=== PATIENT | female | born 1950 | race Caucasian/White ===

== ENCOUNTER 2023-07-20 12:17 | Inpatient (IN) ==
--- NOTE | 2023-07-20 12:49 | Emergency Department Note ---
History of Present Illness General Chief complaint: Illness Stated complaint: HEADACHE, COUGH, CHEST PAIN, FEVER Time Seen by Provider: 07/20/23 12:27 History of Present Illness Maximum Pain Intensity: 8 72-year-old female presents emergency department with a 2-week history of upper respiratory tract infection symptoms including clear nasal discharge runny nose headache and vomiting and urinary tract symptoms of increased urgency frequency and reportedly had a urine tested at the doctor's office yesterday which was positive. Patient is reportedly waiting for the culture prior to antibiotics. Patient states that she had an increased cough today and runny nose which was concerning. There are no other mitigating or alleviating factors. Patient denies fever. Patient denies neck pain. Patient denies rash. Patient denies sick contacts. Patient did take a home COVID test which was negative Home Medications Medication Instructions Recorded Confirmed Type aspirin 81 mg chewable tablet 81 mg PO DAILY 07/20/23 07/20/23 History (Aspirin Childrens) atorvastatin 40 mg tablet 40 mg PO DAILY 07/20/23 07/20/23 History calcium carbonate 600 mg-vitamin 1 cap PO DAILY 07/20/23 07/20/23 History D3 5 mcg (200 unit) capsule (Calcium 600 + D(3)) estradiol 0.01% (0.1 mg/gram) 1 applic vaginal Q OTHER DAY 07/20/23 07/20/23 History vaginal cream furosemide 20 mg tablet 20 mg PO DAILY PRN Fluid Retention 07/20/23 07/20/23 History lorazepam 1 mg tablet 1 mg PO TID PRN Anxiety 07/20/23 07/20/23 History magnesium oxide 400 mg PO DAILY 07/20/23 07/20/23 History meloxicam 15 mg tablet 15 mg PO HS PRN Mouth Pain 07/20/23 07/20/23 History metoprolol succinate 25 mg 12.5 mg PO QAM 07/20/23 07/20/23 History tablet,extended release 24 hr multivitamin 1 tab PO DAILY 07/20/23 07/20/23 History omega 6-hvs-uyp-fish oil 1,000 mg 2 cap PO DAILY 07/20/23 07/20/23 History (120 mg-180 mg) capsule (Fish Oil) omeprazole 20 mg capsule,delayed 20 mg PO DAILYBB 07/20/23 07/20/23 History release sertraline 50 mg tablet 50 mg PO DAILY 07/20/23 07/20/23 History vibegron 75 mg tablet (Gemtesa) 75 mg PO DAILY 07/20/23 07/20/23 History Allergies Allergy/AdvReac Type Severity Reaction Status Date / Time No Known Allergies Allergy Unverified 07/20/23 15:27 Past Med/Surg History Social History Smoking Status: Former smoker Feels Safe at Home: Yes Immunizations: Past medical history includes hypertension, high cholesterol Review of Systems A total of 10 systems reviewed and were otherwise negative Constitutional: + body aches Respiratory: + cough Physical Exam Vital Signs Vital Signs - 24 hr 07/20/23 12:20 07/20/23 12:44 07/20/23 12:53 Temperature 36.2 C L Temperature Source Temporal Artery Scan Pulse Rate 80 79 Pulse Rate [Apical] 81 Respiratory Rate 18 21 Respiratory Effort / Characteristics Non-Labored Spontaneous Respiratory Depth Normal Respiratory Pattern Regular Blood Pressure 153/81 H Blood Pressure [Left Arm] 156/102 H Blood Pressure Mean 105 Blood Pressure Mean [Left Arm] 120 Blood Pressure Position Sitting Pulse Oximetry 97 97 Oxygen Delivery Method Room Air Room Air Sepsis Recent Fever Within 48 Hours No Sepsis New/Unexplained Change in Mental Status No Sepsis Action Taken by Nursing No Action Required 07/20/23 12:54 Temperature Temperature Source Pulse Rate Pulse Rate [Apical] Respiratory Rate Respiratory Effort / Characteristics Respiratory Depth Respiratory Pattern Blood Pressure Blood Pressure [Left Arm] Blood Pressure Mean Blood Pressure Mean [Left Arm] Blood Pressure Position Pulse Oximetry 96 Oxygen Delivery Method Room Air Sepsis Recent Fever Within 48 Hours Sepsis New/Unexplained Change in Mental Status Sepsis Action Taken by Nursing GENERAL: Patient is awake alert in no acute distress patient is resting comfortably and showing no signs of anxiety EYES: The conjunctivae are clear. The pupils are round and reactive. EARS, NOSE, MOUTH AND THROAT: The nose is without any evidence of any deformity. Mucous membranes are moist. Tongue is midline. NECK: The neck is nontender and supple. No meningismus RESPIRATORY: Normal respiratory effort is noted there is no evidence of wheezing rhonchi or rales CARDIOVASCULAR: Regular rate and rhythm noted there no murmurs rubs or gallops normal S1 normal S2. GASTROINTESTINAL: The abdomen is soft. Abdomen is nontender. BACK: No midline tenderness or or step-off noted range of motion in flexion extension as well as rotation no signs of muscle spasm noted MUSCULOSKELETAL/EXTREMITIES: There is no evidence of gross deformity full range of motion is noted in the hips and shoulders. SKIN: There is no obvious evidence of any rash. There are no petechiae, pallor or cyanosis noted. NEUROLOGIC: Patient is awake alert and oriented x3 strength is symmetric Course Reevaluation(s) Reevaluation #1: Patient was started on IV fluids. Patient was given IV Rocephin after her urine culture showed E. coli. Time: 15:00 Reevaluation #2: Patient reassessment -patient is in no distress. I discussed the evaluation with the patient the CAT scan results of lab work and the fact that we are giving her IV Rocephin. Time: 16:06 Consultations Consultation #1: I have spoken with the [facility] hospitalist Laura for admission Time: 16:06 Administered Medications Discontinued Medications Ceftriaxone Sodium (Rocephin) 2,000 mg in 50 mls @ 100 mls/hr IV NOW STA Stop: 07/20/23 15:25 Last Admin: 07/20/23 15:49 Dose: 100 mls/hr Documented By: MARIELENA Ioversol (Optiray 320 125ml) 117 ml IV ONCE ONE Stop: 07/20/23 13:54 Last Admin: 07/20/23 13:54 Dose: 117 ml Documented By: ISABEL Ondansetron HCl (Ondansetron Inj 2 Mg/Ml 2 Ml Vial) 4 mg IV NOW STA Stop: 07/20/23 12:57 Last Admin: 07/20/23 13:00 Dose: 4 mg Documented By: SRL Medical Decision Making Medical Records Attestation: I reviewed the patient's medical records. Home Medications Current Medication List: was personally reviewed by me Laboratory Data Attestation: I reviewed the patient's lab results. Labs interpreted by me -elevated liver enzymes 07/20/23 12:47 07/20/23 12:47 Lab Results 07/20/23 07/20/23 Range/Units 12:35 12:47 WBC 8.70 (4.8-10.8) K/ul RBC 4.54 (4.20-5.40) M/uL Hgb 14.2 (12.0-16.0) g/dl Hct 41.2 (37.0-47.0) % MCV 90.7 (80.0-100.0) fL MCH 31.3 (25.0-34.0) pg MCHC 34.5 (32.0-36.0) g/dL RDW Std Deviation 43.8 (36.4-46.3) fL RDW Coeff of Chio 13.2 (11.5-14.5) % Plt Count 163 (130-400) K/uL MPV 10.2 (9.4-12.4) fL Immature Gran % (Auto) 0.3 % Neut % (Auto) 79.8 % Lymph % (Auto) 11.4 % Butts % (Auto) 5.6 % Eos % (Auto) 2.4 % Baso % (Auto) 0.5 % Neut # (Auto) 6.94 H (1.40-6.50) K/uL Lymph # (Auto) 0.99 L (1.20-3.40) K/uL Butts # (Auto) 0.49 (0.11-0.59) K/uL Eos # (Auto) 0.21 (0.00-0.50) K/uL Baso # (Auto) 0.04 (0.00-0.20) K/uL Immature Gran # (Auto) 0.03 (0.01-0.20) K/uL Sodium 135 L (136-145) mmol/L Potassium 3.8 (3.5-5.1) mmol/L Chloride 100 (98-107) mmol/L Carbon Dioxide 25 (21-32) mmol/L Anion Gap 10 (3-11) BUN 14 (6-23) mg/dl Creatinine 0.80 (0.6-1.2) mg/dl Est Cr Clr Drug Dosing 54.2 ml/min Est GFR ( Amer) 84.2 ml/min Est GFR (Non-Af Amer) 72.6 ml/min BUN/Creatinine Ratio 17.5 (10-20) Glucose 99 (70-99(Fasting)) mg/dl Lactate 1.8 (0.4-2.0) mmol/L Calcium 8.7 (8.6-10.3) mg/dl Magnesium 1.8 (1.7-2.4) mg/dl Total Bilirubin 1.0 (0.2-1.0) mg/dl Direct Bilirubin 0.4 H (0-0.2) mg/dl AST 317 H (13-39) U/L ALT 267 H (7-52) U/L Alkaline Phosphatase 205 H (34-104) U/L Troponin I High Sens 8.5 (0-14) pg/ml Total Protein 6.9 (6.0-8.3) gm/dl Albumin 3.7 (3.4-5.0) gm/dl Procalcitonin 0.45 (0-0.5) ng/ml SARS-CoV-2 (PCR) NEGATIVE (Negative) Influenza Type A (PCR) Negative (Neg) Influenza Type B (PCR) Negative (Neg) RSV (RT-PCR) Negative (Neg) Imaging Data Attestation: I personally reviewed and interpreted this imaging study as follows: My Impression: Chest x-ray interpreted by me negative for infiltrate, review of the radiologist report was appreciated Radiologist's Impression: Chest X-Ray 07/20/23 12:27 XR chest 1V portable HISTORY: Cough. Vomiting. Sepsis COMPARISON: None. FINDINGS: Questionable abnormal density overlying the aortic knob. This could be due to the slightly rotated study. The heart is normal in size. No pneumothorax. No pleural effusions. Hazy appearance to left lateral lung base is could be due to overlapping soft tissue. Otherwise, no focal lung consolidations identified. No evidence for pulmonary edema. IMPRESSION: Questionable abnormal density overlying the aortic knob which could be due to the slightly rotated study. Dedicated contrast-enhanced chest CT is recommended for further evaluation. ACT 112: Negative or not required by law. Electronically signed by: Russell Beck M.D. 07/20/2023 1:05 PM Abdomen/Pelvis CT 07/20/23 13:35 CT abd pelvis IV con only CLINICAL HISTORY: elevated lfts TECHNIQUE: Helical axial images of the abdomen and pelvis were obtained and displayed. Automated dose lowering techniques and/or adjustment according to patient size were utilized for this exam. This exam was performed with intravenous contrast. COMPARISON: Comparison is made to CT abdomen pelvis 07/20/2023 FINDINGS: Lower chest: Peripheral interstitial thickening is seen. Liver: Unremarkable. No focal lesions are seen. Gallbladder and biliary tree: No calcified gallstones. Normal caliber wall. No intra- or extrahepatic biliary ductal dilation. Pancreas: Unremarkable, no focal lesions. Spleen: Unremarkable. Adrenals: Unremarkable. Kidneys and ureters: A stone in the right UVJ measures approximate 4 mm. No hydronephrosis is seen, there is minimal hydroureter. Bladder: Unremarkable. Reproductive organs: Unremarkable. Bowel: Diverticulosis is seen without evidence of diverticulitis. Lymph nodes Retroperitoneal: Unremarkable. Pelvic: Unremarkable. Mesenteric: Unremarkable. Peritoneum: Normal. Vessels: No evidence of aortic dissection. Abdominal wall: A fat-containing umbilical hernia is seen. Bones: Degenerative changes in the visualized spine. IMPRESSION: 1. There is a right UVJ stone without definite hydroureteronephrosis and minimal hydroureter. 2. Otherwise no acute abnormalities, in particular no evidence of dissection. 3. Diverticulosis without diverticulitis. ACT 112: Negative or not required by law. Electronically signed by: Marcial Schrader M.D. 07/20/2023 2:40 PM Chest CTA 07/20/23 13:45 CT ANGIOGRAPHY OF THE CHEST DISSECTION PROTOCOL CLINICAL HISTORY: abnormal cxr COMPARISON STUDY: Chest radiograph performed earlier today. TECHNIQUE: Before and following the IV administration of 117 mL of Optiray, helical axial images of the chest were obtained. Maximal intensity projections and sagittal and coronal reformats were viewed on an independent 3D workstation. IV contrast was administered without complication. Automated exposure control was utilized for the study. A dose lowering technique was utilized adhering to the principles of ALARA. CT DOSE: 2082.59 mGy.cm FINDINGS: Caliber of the thoracic aorta is normal. There is no thoracic aortic dissection. No intramural hematoma is present. There is no pericardial effusion. No pulmonary emboli are identified. A small hiatal hernia is present. There are a few mildly enlarged mediastinal and right hilar lymph nodes. Index AP window node on image 71 of 270 measures 1.7 x 1.2 cm. A right hilar node on image 92 measures 1.6 x 1.3 cm. No pneumothorax. Trace left pleural effusion is present. Mild interlobular septal thickening is noted. Subcutaneous pleural reticulation with tiny pulmonary nodules is noted. There is no confluent consolidation. Abdomen and pelvis CT will be reported separately. IMPRESSION: 1. No thoracic aortic dissection. 2. Mild interlobular septal thickening and patchy subpleural groundglass opacities within the lungs. Findings may reflect an infectious process although are nonspecific. No confluent consolidation. 3. Trace left pleural effusion. 4. Mild enlarged mediastinal and right hilar lymph nodes. These may be reactive. A follow-up chest CT in 6 months is recommended to ensure stability/resolution ACT 112: Negative or not required by law. Electronically signed by: Sachin Araya M.D. 07/20/2023 2:28 PM ECG Data Attestation: I personally reviewed and interpreted this ECG as follows: Additional Comments: EKG interpreted by me, normal sinus rhythm, rate of 82 normal intervals normal axis no obvious ST segment elevation or depression Telemetry was ordered by me, interpreted as sinus rhythm rate of 82 MDM Narrative Medical decision making differential diagnosis includes sepsis, pneumonia, upper respiratory tract infection, viral syndrome, influenza, urinary tract infection Plan is to check labs, sepsis labs, respiratory swab I have reviewed the culture result from July 19, 2023 in which the patient has greater than 100,000 and E. coli Patient was started on IV Rocephin Patient's CT angio to rule out any abnormality due to abnormal chest x-ray was essentially negative for dissection, CT abdomen pelvis showed a ureteral stone Patient was started on IV fluids and IV Rocephin, patient will be admitted for suspected infected kidney stone Impression & Plan Acute UTI (urinary tract infection), Ureterolithiasis Discharge Plan Visit Data Chief Complaint: Illness Stated Complaint: HEADACHE, COUGH, CHEST PAIN, FEVER ED Provider: Carlos Adamson Discharge Problem: Acute UTI (urinary tract infection), Ureterolithiasis Patient Disposition: Admitted As Inpatient Forms Stand Alone Forms: My [facility] Prescriptions Prescriptions: No Action meloxicam 15 mg tablet 15 mg PO HS PRN (Reason: Mouth Pain) metoprolol succinate 25 mg tablet extended release 24 hr 12.5 mg PO QAM atorvastatin 40 mg tablet 40 mg PO DAILY sertraline 50 mg tablet 50 mg PO DAILY Gemtesa 75 mg tablet 75 mg PO DAILY omeprazole 20 mg capsule,delayed release(DR/EC) 20 mg PO DAILYBB estradiol 0.01 % (0.1 mg/gram) cream 1 applic VAGINAL Q OTHER DAY Rx Instructions: apply pea sized amount (0.5gm) vaginally every other night multivitamin Tablet 1 tab PO DAILY aspirin [Aspirin Childrens] 81 mg Tablet,Chewable 81 mg PO DAILY furosemide 20 mg Tablet 20 mg PO DAILY PRN (Reason: Fluid Retention) lorazepam 1 mg tablet 1 mg PO TID PRN (Reason: Anxiety) omega 1-vgr-vaj-fish oil [Fish Oil] 1,000 mg (120 mg-180 mg) Capsule 2 cap PO DAILY magnesium oxide 400 mg magnesium Tablet 400 mg PO DAILY Calcium 600 + D(3) 600 mg-5 mcg (200 unit) Capsule 1 cap PO DAILY Referrals Referrals: Dusty Crocker MD [ED Physician] -
[2023-07-20] MEDS ORDERED: ONDANSETRON INJ 2 MG/ML 2 ML VIAL IV STA (12:56)
--- NOTE | 2023-07-20 13:06 | XRay Report ---
XR chest 1V portable HISTORY: Cough. Vomiting. Sepsis COMPARISON: None. FINDINGS: Questionable abnormal density overlying the aortic knob. This could be due to the slightly rotated study. The heart is normal in size. No pneumothorax. No pleural effusions. Hazy appearance to left lateral lung base is could be due to overlapping soft tissue. Otherwise, no focal lung consolid ations identified. No evidence for pulmonary edema. IMPRESSION: Questionable abnormal density overlying the aortic knob which could be due to the slightly rotated st udy. Dedicated contrast-enhanced chest CT is recommended for further evaluation. ACT 112: Negative or not required by law. Electronically signed by: Russell Beck M.D. 07/20/2023 1:05 PM
[2023-07-20 13:07] LABS: Basophils # (auto) 0.04 K/uL (0.00-0.20); Basophils % (auto) 0.5 %; Eosinophils # (auto) 0.21 K/uL (0.00-0.50); Eosinophils % (auto) 2.4 %; Hematocrit (blood only) 41.2 % (37.0-47.0); Hemoglobin 14.2 g/dl (12.0-16.0); Immature Granulocytes # (auto) 0.03 K/uL (0.01-0.20); Immature Granulocytes % (auto) 0.3 %; Lymphocytes # (auto) 0.99 K/uL (1.20-3.40); Lymphocytes % (auto) 11.4 %; Mean Corpuscular Hemoglobin 31.3 pg (25.0-34.0); Mean Corpuscular Hgb Conc 34.5 g/dL (32.0-36.0); Mean Corpuscular Volume 90.7 fL (80.0-100.0); Mean Platelet Volume 10.2 fL (9.4-12.4); Monocytes # (auto) 0.49 K/uL (0.11-0.59); Monocytes % (auto) 5.6 %; Neutrophils # (auto) 6.94 K/uL (1.40-6.50); Neutrophils % (auto) 79.8 %; Platelet Count 163 K/uL (130-400); RDW Coefficient of Variation 13.2 % (11.5-14.5); RDW Standard Deviation 43.8 fL (36.4-46.3); Red Blood Count 4.54 M/uL (4.20-5.40)
[2023-07-20 13:24] LABS: Albumin Level 3.7 gm/dl (3.4-5.0); BUN Creatinine Ratio 17.5 (10-20); Bilirubin Direct 0.4 mg/dl (0-0.2); Calcium 8.7 mg/dl (8.6-10.3); Creatinine Clr Calc Pharmacy 54.2 ml/min; Est GFR (African American) 84.2 ml/min; Est GFR (Non-African American) 72.6 ml/min; Magnesium 1.8 mg/dl (1.7-2.4); Potassium 3.8 mmol/L (3.5-5.1); Total Protein 6.9 gm/dl (6.0-8.3)
[2023-07-20 13:30] LABS: Troponin I High Sensitivity 8.5 pg/ml (0-14)
[2023-07-20 13:46] LABS: Influenza A virus by PCR Negative (Neg); Influenza B virus by PCR Negative (Neg); RSV by PCR Negative (Neg); SARS CoV2 RNA(COVID-19) Ceph NEGATIVE (Negative)
[2023-07-20] MEDS ORDERED: OPTIRAY 320 125ml IV ONE (13:53)
--- NOTE | 2023-07-20 14:29 | CT Scan Report ---
CT ANGIOGRAPHY OF THE CHEST DISSECTION PROTOCOL CLINICAL HISTORY: abnormal cxr COMPARISON STUDY: Chest radiograph performed earlier today. TECHNIQUE: Before and following the IV administration of 117 mL of Optiray, helical axial images of t he chest were obtained. Maximal intensity projections and sagittal and coronal reformats were viewed on an independent 3D workstation. IV contrast was administered without complication. Automated exp osure control was utilized for the study. A dose lowering technique was utilized adhering to the [facility] DANNY. CT DOSE: 2082.59 mGy.cm FINDINGS: Caliber of the thoracic aorta is normal. There is no thoracic aortic dissection. No intram ural hematoma is present. There is no pericardial effusion. No pulmonary emboli are identified. A sma ll hiatal hernia is present. There are a few mildly enlarged mediastinal and right hilar lymph nodes. Index AP window node on image 71 of 270 measures 1.7 x 1.2 cm. A right hilar node on image 92 measur es 1.6 x 1.3 cm. No pneumothorax. Trace left pleural effusion is present. Mild interlobular septal th ickening is noted. Subcutaneous pleural reticulation with tiny pulmonary nodules is noted. There is n o confluent consolidation. Abdomen and pelvis CT will be reported separately. IMPRESSION: 1. No thoracic aortic dissection. 2. Mild interlobular septal thickening and patchy subpleural groundglass opacities within the lungs. Findings may reflect an infectious process although are nonspecific. No confluent consolidation. 3. Trace left pleural effusion. 4. Mild enlarged mediastinal and right hilar lymph nodes. These may be reactive. A follow-up chest CT in 6 months is recommended to ensure stability/resolution ACT 112: Negative or not required by law. Electronically signed by: Sachin Araya M.D. 07/20/2023 2:28 PM
--- NOTE | 2023-07-20 14:42 | CT Scan Report ---
CT abd pelvis IV con only CLINICAL HISTORY: elevated lfts TECHNIQUE: Helical axial images of the abdomen and pelvis were obtained and displayed. Automated dose lowering techniques and/or adjustment according to patient size were utilized for this exam. This e xam was performed with intravenous contrast. COMPARISON: Comparison is made to CT abdomen pelvis 07/20/2023 FINDINGS: Lower chest: Peripheral interstitial thickening is seen. Liver: Unremarkable. No focal lesions are seen. Gallbladder and biliary tree: No calcified gallstones. Normal caliber wall. No intra- or extrahepatic biliary ductal dilation. Pancreas: Unremarkable, no focal lesions. Spleen: Unremarkable. Adrenals: Unremarkable. Kidneys and ureters: A stone in the right UVJ measures approximate 4 mm. No hydronephrosis is seen, t here is minimal hydroureter. Bladder: Unremarkable. Reproductive organs: Unremarkable. Bowel: Diverticulosis is seen without evidence of diverticulitis. Lymph nodes Retroperitoneal: Unremarkable. Pelvic: Unremarkable. Mesenteric: Unremarkable. Peritoneum: Normal. Vessels: No evidence of aortic dissection. Abdominal wall: A fat-containing umbilical hernia is seen. Bones: Degenerative changes in the visualized spine. IMPRESSION: 1. There is a right UVJ stone without definite hydroureteronephrosis and minimal hydroureter. 2. Otherwise no acute abnormalities, in particular no evidence of dissection. 3. Diverticulosis without diverticulitis. ACT 112: Negative or not required by law. Electronically signed by: Marcial Schrader M.D. 07/20/2023 2:40 PM
[2023-07-20] MEDS ORDERED: cefTRIAXone SODIUM 2,000 MG/50 ML BAG IV STA (14:56)
--- NOTE | 2023-07-20 16:36 | History & Physical Report ---
Date of Service July 20, 2023 Assessment & Plan (1) Elevated transaminase level: (2) Ureterolithiasis: (3) Urge incontinence: (4) Acute UTI (urinary tract infection): (5) GERD (gastroesophageal reflux disease): (6) HLD (hyperlipidemia): (7) Ischemic heart disease: Plan: 72 yo F with PMhx of chronic disease, HLD, anxiety, GERD, urge incontinence who presents to the hospital with upper respiratory complaints for the past 2 weeks, vomited 1 time 1 week ago, yesterday and again today. Outpatient urinalysis conducted and culture grew out 100,000 colonies of E. coli on preliminary result reported on 07/19/2023 she was not started on outpatient antibiotic, upon hearing this patient presented to the ER. UTI, e. Eoli Urge Incontinence Ureterolithiasis -Continue ceftriaxone IV, antibiotics initiated today 07/20, can transition to p.o. antibiotic on discharge pending culture sensitivity results in epic -CT abdomen pelvis conducted showing 4 mm UVJ stone, left, no hydronephrosis, nonobstructing. -Strain all urine, no abdominal pain, patient is tolerating p.o. intake, will hold off on IV fluids at this time Upper Respiratory Illness - CT chest showing hilar lymphadenopathy, - COVID, RSV and flu swab negative, can hold off on biofire at this time and treat supportively with nasal spray, tessalon pearls, xopenex nebs prn Elevated Transaminases - Noted upon outpatient epic review her LFTs were normal as of 02/22/2023 -Suspect that this is possibly viral causing such -Check hepatitis panel -Trend LFTs with a.m. labs -Holding statin therapy, patient denies any Tylenol use, she does admit to drinking 2 glasses of wine daily and has done this for many years -CT abd/pelvis is negative for acute findings which would cause concern with elevation of LFTs, benign abdomen on exam, no changes in bowels, + vomiting but minimal. -Can consider autoimmune panel if LFTs uptrending/not improving HLD - Holding statin therapy for now Ischemic heart disease - Reviewed pts last echo personally from April 2022 showing LVEF of 55 to 59%, no wall motion abnormalities, grade 1 diastolic dysfunction - appears euvolemic on exam today - Continue baby aspirin daily - Chronic, stable DVT PPx: teds, scds Lines: 2 PIV FEN/GI heart healthy diet CODE: DNR/DNI Dispo: From home, likely to remain in the hospital x 1-2 days History of Present Illness Chief Complaint: UTI, upper respiratory symptoms Primary Care Provider: Jomar Thompson MD This is a 72 yo F with PMhx of chronic disease, HLD, anxiety, GERD, urge incontinence who presents to the hospital with upper respiratory complaints for the past 2 weeks, vomited 1 time 1 week ago, yesterday and again today. Patient had outpatient urinalysis conducted and culture grew out 100,000 colonies of E. coli on preliminary result reported on 07/19/2023 she was not started on outpatient antibiotic, upon hearing this patient presented to the ER. She denies any chronic abdominal pain or any recent changes in her medications. She admits to drinking 2 glasses of wine daily and has for many years. Pt uses meloxicam only intermittently, denies tylenol use. Patient also admits to having a cough/runny nose for the past 2 weeks, feels a bit fatigued, dyspneic after climbing a flight of stairs, but reports that she is not short of breath with normal ADLs. She admits to having some sweats, chills and felt like she was shaking 2 nights ago but denies any specific fever, did not take her temperature, did not take any antipyretic medications. She denies any recent sick contacts, lives at home with her . Daughter is present with her at bedside and supports the history. Allergies Allergy/AdvReac Type Severity Reaction Status Date / Time No Known Allergies Allergy Unverified 07/20/23 15:27 Home Medications Medication Instructions Recorded Confirmed Type aspirin 81 mg chewable tablet 81 mg PO DAILY 07/20/23 07/20/23 History (Aspirin Childrens) atorvastatin 40 mg tablet 40 mg PO DAILY 07/20/23 07/20/23 History calcium carbonate 600 mg-vitamin 1 cap PO DAILY 07/20/23 07/20/23 History D3 5 mcg (200 unit) capsule (Calcium 600 + D(3)) estradiol 0.01% (0.1 mg/gram) 1 applic vaginal Q OTHER DAY 07/20/23 07/20/23 History vaginal cream furosemide 20 mg tablet 20 mg PO DAILY PRN Fluid Retention 07/20/23 07/20/23 History lorazepam 1 mg tablet 1 mg PO TID PRN Anxiety 07/20/23 07/20/23 History magnesium oxide 400 mg PO DAILY 07/20/23 07/20/23 History meloxicam 15 mg tablet 15 mg PO HS PRN Mouth Pain 07/20/23 07/20/23 History metoprolol succinate 25 mg 12.5 mg PO QAM 07/20/23 07/20/23 History tablet,extended release 24 hr multivitamin 1 tab PO DAILY 07/20/23 07/20/23 History omega 1-irs-jkg-fish oil 1,000 mg 2 cap PO DAILY 07/20/23 07/20/23 History (120 mg-180 mg) capsule (Fish Oil) omeprazole 20 mg capsule,delayed 20 mg PO DAILYBB 07/20/23 07/20/23 History release sertraline 50 mg tablet 50 mg PO DAILY 07/20/23 07/20/23 History vibegron 75 mg tablet (Gemtesa) 75 mg PO DAILY 07/20/23 07/20/23 History Past Med/Surg History Medical History (Updated 07/20/23 @ 16:32 by Stephanie Lynch PA-C) Hx of cataract Urge incontinence GERD (gastroesophageal reflux disease) HLD (hyperlipidemia) Ischemic heart disease Surgical History (Updated 07/20/23 @ 16:32 by Stephanie Lynch PA-C) History of removal of ovarian cyst Hx of colonoscopy Hx of rotator cuff surgery Family History (Updated 07/20/23 @ 16:33 by Stephanie Lynch PA-C) Mother Stroke Diabetes Father Diabetes Heart disease Social History (Updated 07/20/23 @ 16:33 by Stephanie Lynch PA-C) Smoking Status: Former smoker Tobacco Type: Cigarettes Smoking End Date: 40 years ago; Feels Safe at Home: Yes Review of Systems Review of Systems: Constitutional: As per HPI with possible fever, sweats and chills Eyes: No diplopia, no worsening or blurred vision ENT: normal hearing, no trouble swallowing Respiratory: + rhinorrhea, occasional cough, no sputum, no dyspnea at rest, + PARSONS Cardiovascular: No chest pain, tightness or palpitations Abdomen: As per HPI, No pain, + vomiting x 2 days, no diarrhea or constipation Musculoskeletal: No joint pain, calf pain, swelling Neurologic: No weakness, numbness/tingling, or balance problems Psychiatric: No anxiety or depression Skin: No rash or itch Physical Exam Physical Exam: General: awake, alert, no apparent distress, elderly white female Head: Normocephalic, atraumatic ENT: PERRL, EOMI, no pharyngeal exudate, mucous membranes moist Chest: Clear to auscultation, on room air, no adventitious breath sounds Cardiac: Regular rate and rhythm, no murmur, no JVD, normal peripheral pulses, good capillary refill Abdominal: NABS x 4 quadrants, soft, nondistended, nontender to palpation, no rebound or guarding Extremities: Normal inspection, no peripheral edema or erythema, calfs nontender to palpation Psych: Normal mood and affect Neuro: AAO x 3, strength intact bilaterally and rated 5/5, no motor deficits, speech is clear, no peripheral sensory deficits Results & Data Results & Data Vital Signs (Past 12 Hours) Vital Signs Temp Pulse Pulse Resp BP BP Pulse Ox 07/20/23 12:54 96 07/20/23 12:53 81 21 156/102 H 97 07/20/23 12:44 79 07/20/23 12:20 36.2 C L 80 18 153/81 H 97 O2 Del Method 07/20/23 12:54 Room Air 07/20/23 12:53 Room Air 07/20/23 12:44 07/20/23 12:20 Room Air Laboratory Results 07/20/23 14:22 Aerobic Blood Culture - Pending Blood Anaerobic Blood Culture - Pending 07/20/23 12:47 Aerobic Blood Culture - Pending Blood Anaerobic Blood Culture - Pending 07/20/23 07/20/23 12:47 12:35 WBC 8.70 RBC 4.54 Hgb 14.2 Hct 41.2 MCV 90.7 MCH 31.3 MCHC 34.5 RDW Std Deviation 43.8 RDW Coeff of [place] 13.2 Plt Count 163 MPV 10.2 Immature Gran % (Auto) 0.3 Neut % (Auto) 79.8 Lymph % (Auto) 11.4 [place] % (Auto) 5.6 Eos % (Auto) 2.4 Baso % (Auto) 0.5 Neut # (Auto) 6.94 H Lymph # (Auto) 0.99 L [place] # (Auto) 0.49 Eos # (Auto) 0.21 Baso # (Auto) 0.04 Immature Gran # (Auto) 0.03 Sodium 135 L Potassium 3.8 Chloride 100 Carbon Dioxide 25 Anion Gap 10 BUN 14 Creatinine 0.80 Est Cr Clr Drug Dosing 54.2 Est GFR ( Amer) 84.2 Est GFR (Non-Af Amer) 72.6 BUN/Creatinine Ratio 17.5 Glucose 99 Lactate 1.8 Calcium 8.7 Magnesium 1.8 Total Bilirubin 1.0 Direct Bilirubin 0.4 H AST 317 H ALT 267 H Alkaline Phosphatase 205 H Troponin I High Sens 8.5 Total Protein 6.9 Albumin 3.7 Procalcitonin 0.45 SARS-CoV-2 (PCR) NEGATIVE Influenza Type A (PCR) Negative Influenza Type B (PCR) Negative RSV (RT-PCR) Negative Diagnostic Findings Chest X-Ray 07/20/23 12:27 XR chest 1V portable HISTORY: Cough. Vomiting. Sepsis COMPARISON: None. FINDINGS: Questionable abnormal density overlying the aortic knob. This could be due to the slightly rotated study. The heart is normal in size. No pneumothorax. No pleural effusions. Hazy appearance to left lateral lung base is could be due to overlapping soft tissue. Otherwise, no focal lung consolidations identified. No evidence for pulmonary edema. IMPRESSION: Questionable abnormal density overlying the aortic knob which could be due to the slightly rotated study. Dedicated contrast-enhanced chest CT is recommended for further evaluation. ACT 112: Negative or not required by law. Electronically signed by: Russell Beck M.D. 07/20/2023 1:05 PM Abdomen/Pelvis CT 07/20/23 13:35 CT abd pelvis IV con only CLINICAL HISTORY: elevated lfts TECHNIQUE: Helical axial images of the abdomen and pelvis were obtained and displayed. Automated dose lowering techniques and/or adjustment according to patient size were utilized for this exam. This exam was performed with intravenous contrast. COMPARISON: Comparison is made to CT abdomen pelvis 07/20/2023 FINDINGS: Lower chest: Peripheral interstitial thickening is seen. Liver: Unremarkable. No focal lesions are seen. Gallbladder and biliary tree: No calcified gallstones. Normal caliber wall. No intra- or extrahepatic biliary ductal dilation. Pancreas: Unremarkable, no focal lesions. Spleen: Unremarkable. Adrenals: Unremarkable. Kidneys and ureters: A stone in the right UVJ measures approximate 4 mm. No hydronephrosis is seen, there is minimal hydroureter. Bladder: Unremarkable. Reproductive organs: Unremarkable. Bowel: Diverticulosis is seen without evidence of diverticulitis. Lymph nodes Retroperitoneal: Unremarkable. Pelvic: Unremarkable. Mesenteric: Unremarkable. Peritoneum: Normal. Vessels: No evidence of aortic dissection. Abdominal wall: A fat-containing umbilical hernia is seen. Bones: Degenerative changes in the visualized spine. IMPRESSION: 1. There is a right UVJ stone without definite hydroureteronephrosis and minimal hydroureter. 2. Otherwise no acute abnormalities, in particular no evidence of dissection. 3. Diverticulosis without diverticulitis. ACT 112: Negative or not required by law. Electronically signed by: Marcial Schrader M.D. 07/20/2023 2:40 PM Chest CTA 07/20/23 13:45 CT ANGIOGRAPHY OF THE CHEST DISSECTION PROTOCOL CLINICAL HISTORY: abnormal cxr COMPARISON STUDY: Chest radiograph performed earlier today. TECHNIQUE: Before and following the IV administration of 117 mL of Optiray, helical axial images of the chest were obtained. Maximal intensity projections and sagittal and coronal reformats were viewed on an independent 3D workstation. IV contrast was administered without complication. Automated exposure control was utilized for the study. A dose lowering technique was utilized adhering to the principles of ALARA. CT DOSE: 2082.59 mGy.cm FINDINGS: Caliber of the thoracic aorta is normal. There is no thoracic aortic dissection. No intramural hematoma is present. There is no pericardial effusion. No pulmonary emboli are identified. A small hiatal hernia is present. There are a few mildly enlarged mediastinal and right hilar lymph nodes. Index AP window node on image 71 of 270 measures 1.7 x 1.2 cm. A right hilar node on image 92 measures 1.6 x 1.3 cm. No pneumothorax. Trace left pleural effusion is present. Mild interlobular septal thickening is noted. Subcutaneous pleural reticulation with tiny pulmonary nodules is noted. There is no confluent consolidation. Abdomen and pelvis CT will be reported separately. IMPRESSION: 1. No thoracic aortic dissection. 2. Mild interlobular septal thickening and patchy subpleural groundglass opacities within the lungs. Findings may reflect an infectious process although are nonspecific. No confluent consolidation. 3. Trace left pleural effusion. 4. Mild enlarged mediastinal and right hilar lymph nodes. These may be reactive. A follow-up chest CT in 6 months is recommended to ensure stability/resolution ACT 112: Negative or not required by law. Electronically signed by: Sachin Araya M.D. 07/20/2023 2:28 PM ECG Additional Comments: EKG personally reviewed showing NSR, no signs of ST wave inversion, or signs of ischemia Code Status & VTE Plan Code Status DNR/DNI-discussed with the patient and her daughter who was present at bedside VTE Prophylaxis Plan VTE Prophylaxis will be ordered: Yes Supervising Physician Co-Signing Physician Notes I have seen and discussed the case with the collaborating JOHANNE. I agree with the above H&P. I have reviewed and confirmed the patients medical history, the findings on physical examination, and the patients diagnosis and treatment plan with Cris WHITING and agree with the information documented. In short, Ms. Solis is a 72 year old woman with past medical history of urinary incontinence, ischemic coronary heart disease, PACs/PVCs, HLD, history of mildly elevated ALT who is admitted due to elevated LFTS and urinary tract infection. Patient endorses 2 episodes of vomiting, nonbillious. Denies any recent history of med changes or OTC use (tylenol). Physical exam negative for any abdominal tenderness. #Transaminitis #H/o of elevated ALT per records in 2019 -Recently in normal range in OP labs; potentially 2/2 ongoing infection/illness -Trend CMP, hep panel in am -Hold atorvastatin #PACs/PVCs -Continue metoprolol 12.5 mg daily Rest of plan as above
--- OUTSIDE RECORDS SUMMARY | 2023-07-20 17:17 | External Medical Summary | Summary of Care ---
Author Name Unknown Organization [facility] Address [address] [place] [address] Phone [phone] Care Team Providers Care Tomography Technologist Name Role Phone Jomar Thompson MD Primary Care Provider + Reason for Visit * Reason Comments Re-Check Encounter Details Date Type Department Care Team (Late st Contact Info) Description 07/05/2023 9:45 AM EST Office Visit Urogynecology Thai Jensen [address] [facility] [place] [address] Yahaira Reed PA-C [address] [place] [address] Nurse Ursula Jensen [address] [place] [id number] Mixed incontinence urge and stress*; Uterovaginal prolapse, incomplete; Atrophic vaginitis Allergies No known active allergiesdocumented as of this encounter (statuses as of 07/05/2023) Medications Medication Sig Dispensed Refills Start Date End Date Status FISH OIL 1000 MG PO CAPS 2 tabs daily 0 Active CALCIUM 600 + D 600-200 MG-UNIT PO TABS 1 daily 0 07/08/2008 Active MAG-OX 400 400 MG PO TABSIndications:At rial premature beats one tablet daily 90 3 12/01/2008 Active ASPIRIN 81 MG PO CHEW One pill by mouth once a day with food 0 07/17/2013 Active MULTIVITAMINS PO CAPS 2 capsules daily 0 10/30/2013 Active furosemide (LASIX) 20 MG TabletIndications: Ischemic heart disease Take 1 Tab by mouth daily. 90 Tab 3 12/24/2019 Active Additional Information Patient taking differently:20 mg OralDAILY PRN, Reported on 08/18/2022 Apple Cider Vinegar Plus Oral Tablet Take by mouth. 0 Active Atorvastatin Calcium 40 MG Oral Tablet (Lipitor) Take 1 Tablet by mouth in the morning. 90 Tablet 2 01/11/2023 Active Sertraline HCl 50 MG Oral Tablet (Zoloft)Indication s:Current moderate episode of major depressive disorder without prior episode (HCC) Take 1 Tablet by mouth in the morning. 90 Tablet 1 02/20/2023 Active Metoprolol Succinate ER 25 MG Oral Tablet Extended Release 24 Hour (toPROL XL)Indications:Isc hemic heart disease,Dyslipidem ia, goal LDL below 70,PVC (premature ventricular contraction) TAKE ONE-HALF (1/2) TABLET DAILY 90 Tablet 3 04/09/2023 Active Omeprazole 20 MG Oral Capsule Delayed Release (PriLOSEC) Take 1 Capsule by mouth in the morning. 1 hour before the first meal of the day.. 90 Capsule 3 05/10/2023 Active Fish Oil 300 MG Oral Capsule Take 1 (1,000 mg) capsule by oral route 2 times every day 0 Active Meloxicam 15 MG Oral Tablet 1 Tablet as needed. 0 03/30/2023 Active Estradiol 0.1 MG/GM Vaginal Cream (Estrace) Apply pea sized amount (0.5 gm) vaginally every other night 42.5 g 3 06/06/2023 Active Gemtesa 75 MG Oral Tablet (Vibegron) Take 1 Tablet by mouth in the morning. 90 Tablet 3 06/06/2023 05/31/2024 Active LORazepam 1 MG Oral Tablet (Ativan)Indication s:Anxiety state TAKE 1 TABLET THREE TIMES A DAY NEEDED FOR ANXIETY 30 Tablet 1 06/22/2023 Active documented as of this encounter (statuses as of 07/05/2023) Active Problems Problem Noted Date Diagnosed Date Mild mitral regurgitation 05/10/2022 Diastolic dysfunction 05/10/2022 Incomplete uterovaginal prolapse 11/15/2018 Cystocele, lateral 11/15/2018 Rectocele 11/15/2018 Urge incontinence of urine 11/15/2018 Feeling of incomplete bladder emptying 9 Gastroesophageal reflux disease without esophagi tis 12/08/2015 PVC (premature ventricular contraction) 04/06/20 15 Dyslipidemia, goal LDL below 70 05/25/2014 Ischemic heart disease 05/25/2014 Overview: Echo evidence of RCA territory infarct. Anxiety 02/04/2014 Palpitations 12/29/2013 Abnormal echocardiogram 07/18/2013 Stress incontinence 02/24/2008 Disc disorder of lumbar region 02/24/2008 Insomnia Overview: ICD-10 update of inactive term documented as of this encounter (statuses as of 07/05/2023) Resolved Problems Problem Noted Date Diagnosed Date Resolved Date Advanced directives, counseling/discussion 11/15/2018 08/01/2021 Overview: Scanned 2004 Dyslipidemia, goal LDL below 130 07/18/2013 05/25/2014 Abnormal ECG 07/18/2013 01/05/2020 Dyslipidemia, goal LDL below 160 10/11/2010 07/18/2013 Dyslipidemia, goal to be determined 07/13/2009 10/11/2010 Overview: Per Lipid Taxonomy. Dyslipidemia, goal LDL below 160 07/08/2008 07/13/2009 Overview: Per Lipid Taxonomy. Osteoporosis 07/08/2008 01/04/2017 documented as of this encounter (statuses as of 07/05/2023) Immunizations Name Administration Dates Next Due COVID-19 mRNA, LNP-s, No Pre serve, 2-Dose Series (Migo.me) 03/31/2021,09/25/2020,09/04/2020 H1N1 2009 Influenza, IM 06/28/2009 Pneumococcal Conjugate Vacc, 13 Valent (Prevnar) 05/22/2016 Pneumococcal Polysaccharide PPV23 (Pneumovax) 12/29/2013 SEASONAL INFLUENZA, PF, 6 M & Above, IM , (FLULAVAL or FLUZONE) 04/05/2017 Season Influenza, Quad, PF, Adjuvanted, 65+ Yrs, IM (FLUAD) 03/22/2021,03/22/2020 Seasonal Influenza, Split, I IV3, With Preserve, Inj 05/24/2016,04/28/2015,06/20/2014,07/05,05/15/2012,06/13/2010,05/28/2009 Seasonal Influenza, Trivalen t, Adjuvanted, 65+ yrs 05/03/2022,05/07/2019 TDAP (age 10 and older)(Boostrix) 12/18/2018 TDAP (age 11 and older)(Adacel) 02/24/2008 Varicella Zoster Vaccine (Adult) 11/16/2011 Zoster Vaccine Recombinant (Shingrix) 03/14/2020 ,01/15/2020 documented as of this encounter Social History Tobacco Use Types Packs/Day Years Used Date Smoking Tobacco: Former Cigarettes 0.5 15 Smokeless Tobacco: Former Quit: 07/30/2010 Comments:quit smoking 5years 1/2 pack per day for 15 years Alcohol Use Standard Drinks/Week Comments Yes 0 (1 standard drink = 0.6 oz pur e alcohol) 5 drinks a week PHQ-2 Answer Date Recorded PHQ Adult Total Score 2 08/18/2022 Hunger Vital Sign Answer Date Recorded Within the past 12 months, y ou worried that your food would run out before you got the money to buy more. Never true 08/18/19 23 Within the past 12 months, t he food you bought just didn't last and you didn't have money to get more. Never true 08/18/2022 Sex and Gender Information Value Date Recorded Sex Assigned at Female 12/13/2018 8:57 AM EDT Gender Identity Female 12/13/2018 8:57 AM EDT Sexual Orientation Straight 12/13/2018 8: 57 AM EDT Job Start Date Occupation Industry Not on file Not on file Not on file documented as of this encounter Last Filed Vital Signs Vital Sign Reading Time Taken Comments Blood Pressure 132/80 07/05/2023 9:47 AM EST Pulse - - Temperature - - Respiratory Rate - - Oxygen Saturation - - Inhaled Oxygen Concentration - - Weight 71.7 kg (158 lb) 07/05/2023 9:47 AM EST Height 154.9 cm (5' 1") 07/05/2023 9:47 AM EST Body Mass Index 29.85 07/05/2023 9:47 AM EST documented in this encounter Progress Notes * Yahaira Reed PA-C - 07/05/2023 9:56 AM EST Jamal Solis presents for a follow up visit at [facility]. She was previously seen for N39.46 Mixed incontinence urge and stress (primary encounter diagnosis) N81.2 Uterovaginal prolapse, incomplete N95.2 Atrophic vaginitis Since last seen, patient was treated for a UTI and started taking Gemtesa 75mg daily, 10 days ago. She is very pleased with the improvement in her symptoms thus far. She is having much less leakage. Nocturia 1x nightly. Daytime frequency every 3 hours. Denies sense of incomplete bladder emptying. Denies side effects. Urinary: Much improved leakage incontinence. No urgency, frequency or dysuria. Voiding well. GI: No concerns. Bowels moving well. Letterpress Setter: No abnormal discharge or vaginal bleeding. Overall is pleased with current treatment plan and would like to continue current treatment. No complaints or concerns at this time. Review of patient's allergies indicates: No Known Allergies Current Outpatient Medications Medication Sig Dispense Refill FISH OIL 1000 MG PO CAPS 2 tabs daily CALCIUM 600 + D 600-200 MG-UNIT PO TABS 1 daily MAG-OX 400 400 MG PO TABS one tablet daily 90 3 ASPIRIN 81 MG PO CHEW One pill by mouth once a day with food MULTIVITAMINS PO CAPS 2 capsules daily Apple Cider Vinegar Plus Oral Tablet Take by mouth. Atorvastatin Calcium 40 MG Oral Tablet (Lipitor) Take 1 Tablet by mouth in the morning. 90 Tablet 2 Sertraline HCl 50 MG Oral Tablet (Zoloft) Take 1 Tablet by mouth in the morning. 90 Tablet 1 Metoprolol Succinate ER 25 MG Oral Tablet Extended Release 24 Hour (toPROL XL) TAKE ONE-HALF (1/2) TABLET DAILY 90 Tablet 3 Omeprazole 20 MG Oral Capsule Delayed Release (PriLOSEC) Take 1 Capsule by mouth in the morning. 1 hour before the first meal of the day.. 90 Capsule 3 Estradiol 0.1 MG/GM Vaginal Cream (Estrace) Apply pea sized amount (0.5 gm) vaginally every other night 42.5 g 3 Gemtesa 75 MG Oral Tablet (Vibegron) Take 1 Tablet by mouth in the morning. 90 Tablet 3 furosemide (LASIX) 20 MG Tablet Take 1 Tab by mouth daily. (Patient taking differently: Take 1 Tablet by mouth daily as needed.) 90 Tab 3 Fish Oil 300 MG Oral Capsule Take 1 (1,000 mg) capsule by oral route 2 times every day Meloxicam 15 MG Oral Tablet 1 Tablet as needed. LORazepam 1 MG Oral Tablet (Ativan) TAKE 1 TABLET THREE TIMES A DAY NEEDED FOR ANXIETY 30 Tablet1 No current facility-administered medications for this visit. ROS: Per HPI BP 132/80 | Ht 1.549 m (5' 1") | Wt 71.7 kg (158 lb) | BMI 29.85 kg/m | BSA 1.76 m GENERAL: alert, healthy, no distress, well nourished and well developed SKIN: Skin color, texture, and turgor normal. No rashes or significant lesions Impression: This is a 72 year old with N39.46 Mixed incontinence urge and stress (primary encounter diagnosis) N81.2 Uterovaginal prolapse, incomplete N95.2 Atrophic vaginitis Plan: In process of being scheduled for surgery with Dr. Mao. Planning for vaginal hysterectomy, removal of tubes and ovary, uterosacral ligament suspension, anterior and posterior colporrhaphy, sling, andcystoscopy. States she prefers to have surgery done at [facility] and is planning to wait for availability. Continue Gemtesa 75mg daily. Continue limiting caffeine intake and practicing daily kegel exercises. RTC in 3 months or sooner as needed. I spent a total of 20-29 minutes (exact time 20 mins) on the date of service in preparation, delivery, and documentation of the care provided to Jamal Solis excluding any time spent in the performance of separately billed services. Yahaira Reed PA-C 07/05/2023 9:57 AM Yahaira Reed PA-C Urogynecology [address] [place] [address] documented in this encounter Nursing Notes * Kelley Alejo RN - 07/05/2023 9:49 AM EST Pt here for med recheck. She has been on it for 2 weeks. The dryness in her mouth is gone. She is voiding more often but going smaller amounts. She is noting less leaking. Getting up once at night. documented in this encounter Plan of Treatment Upcoming Encounters Date Type Department Care Team (Late st Contact Info) Description 09/12/2023 4:20 PM EST Office Visit General Internal Medicine [facility] [place] [address] [facility] [place] [address] Jomar Thompson MD [address] [facility] [place] [address] 10/15/2023 8:25 AM EDT Office Visit Urogynecology [facility] [address] [place] [address] Yahaira Reed PA-C [address] [place] [address] Nurse Mikey Urogyleslee Graciela [address] [place] [address] 10/29/2023 8:00 AM EDT Office Visit Cardiology, [facility] [address] [place] [address] Pepe Mckeon DO [address] [place] [address] Health Maintenance Due Date Last Done Comments Cologuard 1993 Fecal Occult Blood Test 1993 Sigmoidoscopy 1993 Colonoscopy 04/13/2018 04/13/2008 Colorectal Cancer Screening 04/13/2018 Mammogram 06/17/2019 06/17/2018, 05/01, 05/26/2016, Additional history exists Depression Screening 08/18/2023 08/18/2022 DXA Scan 09/04/2026 09/04/2022, 12/2022, 12/18/2018, Additional history exists DTaP,Tdap,and Td Vaccines (3 - Td or Tdap) 12/18/2028 12/18/2018, 02/24/2008 Pneumococcal Vaccine: 65+ Years Completed 05/22/2016, 12/29/2013 Zoster Vaccines Completed 03/14/2020, 12/28, 11/16/2011 COVID-19 Vaccine Completed 04/27/2023, 08/2020, 09/25/2020, Additional history exists Influenza Vaccine (FLU shot) Completed , 05/03/2022, 03/22/2021, Additional history exists GARDASIL-HPV IMMUNIZATION SERIES Aged Out No longer eligible based on patient's age to complete this topic Hepatitis B Aged Out No longer eligi ble based on patient's age to complete this topic MENINGOCOCCAL (MENACTRA/MENVEO) Aged Out No longer eligible based on patient's age to complete this topic documented as of this encounter Medical Devices Implanted Type Area [employer] Intermediary Device Identifier Shelf Expiration Date Model / Serial / Lot Lens Intraoc 15.5 - [id number] - [id number] Implanted:Qty: 1 on 06/18/2018 by Pratik Zazueta MD at OR [facility] Right: Eye [employer] 11/26/2021 [id number] / [id number] / [id number] Lens Intraoc 17.0 - [id number] - [id number] Implanted:Qty: 1 on 06/24/2018 by Pratik Zazueta MD at OR [facility] Left: Eye [employer]CH [employer] LOMB 01/26/2023 [id number] / [id number] / [id number] documented as of this encounter Visit Diagnoses Diagnosis Mixed incontinence urge and stress- Primary Mixed incontinence urge and stress (male)(female) Uterovaginal prolapse, incomplete Atrophic vaginitis Postmenopausal atrophic vaginitis documented in this encounter Care Teams Tomography Technologist Relationship Specialty Start Date End Date Jomar Thompson MD [address] [place] [address] PCP - General Internal Medicine 05/27/21 documented as of this encounter
--- OUTSIDE RECORDS SUMMARY | 2023-07-20 17:17 | External Medical Summary ---
Author Name Unknown Address Unknown Organization [id number]:[facility] - [address] [place] [address] Laboratory Report Ordering Provider Test Date Status AURE LIU 07/19/2023 10:08:47 Preliminary <10,000 colonies/ml mixed no rmal aly Observation Date Value Abnormality Reference (Units ) Status Bacteria identified in Specimen by Culture 07/19/2023 10:08:47 [id number]^ESCH ERICHIA COLI Abnormal Preliminary >100,000 colonies/mL Escheri raul coli
Test: Culture, Urine, Quantitative
Specimen Source: Urine, Clean Catch
Specimen Type: Urine
Specimen Date: 07/19/2023 10:08 AM
Result Date: 07/20/2023 9:50 AM
Result Status: Preliminary result
Abnormal: Yes
Resulting Lab: [facility]
[address]
[place] [address]

CULTURE

>100,000 colonies/mL Escherichia coli (Abnormal)

<10,000 colonies/ml mixed normal aly

null Performing Location [facility] - [address] [place] [address]
--- OUTSIDE RECORDS SUMMARY | 2023-07-20 17:17 | External Medical Summary | Summary of Care ---
Author Name Unknown Organization [facility] Address [address] [place] [address] Phone [phone] Care Team Providers Care Ammunition Officer Name Role Phone Jomar Thompson MD Primary Care Provider + Reason for Visit * Reason Comments Outpatient Testing Encounter Details Date Type Department Care Team (Late st Contact Info) Description 07/19/2023 9:50 AM EST Laboratory Laboratory, [facility] [address] [place] [id number] [facility] [address] [place] [address] Dysuria Allergies No known active allergiesdocumented as of this encounter (statuses as of 07/19/2023) Medications Medication Sig Dispensed Refills Start Date [...] as of this encounter (statuses as of 07/19/2023) Active Problems Problem Noted Date Diagnosed Date [...] as of this encounter (statuses as of 07/19/2023) Resolved Problems Problem Noted Date Diagnosed Date Resolved Date Advanced directives, counseling/discussion 11/15/2018 08/01/2021 Overview: Scanned 2005 Dyslipidemia, goal LDL below 130 07/18/2013 05/25/2014 Abnormal ECG 07/18/2013 01/05/2020 Dyslipidemia, goal LDL below 160 10/11/2010 07/18/2013 Dyslipidemia, goal to be determined 07/13/2009 10/11/2010 Overview: Per Lipid Taxonomy. Dyslipidemia, goal LDL below 160 07/08/2008 07/13/2009 Overview: Per Lipid Taxonomy. Osteoporosis 07/08/2008 01/04/2017 documented as of this encounter (statuses as of 07/19/2023) Immunizations Name Administration Dates Next Due COVID-19 mRNA, LNP-s, No Pre serve, 2-Dose Series ([employer]) 03/31/2021,09/25/2020,09/04/2020 H1N1 2009 Influenza, IM 06/28/2009 Pneumococcal Conjugate Vacc, 13 Valent (Prevnar) 05/22/2016 Pneumococcal Polysaccharide PPV23 (Pneumovax) 12/29/2013 Season Influenza, Quad, PF, Adjuvanted, 65+ Yrs, IM (FLUAD) 03/22/2021,03/22/2020 Seasonal Influenza, PF, 6 M & above, IM , (FluLaval or Fluzone) 04/05/2017 Seasonal Influenza, Split, I IV3, With Preserve, [...] on file documented as of this encounter Plan of Treatment Upcoming Encounters Date Type Department Care Team (Late st Contact Info) Description 09/12/2023 4:20 PM EST Office Visit General Internal Medicine [facility] [place] [address] [place] [address] Jomar Thompson MD [address] [place] [address] 10/15/2023 8:25 AM EDT Office Visit Urogynecology Thai Jensen [address] [place] [address] Yahaira Reed PA-C [address] [place] [address] Nurse Mikey Uroglory Owens [address] [place] [address] 10/29/2023 8:00 AM EDT [facility] [address] [place] [address] Pepe Mckeon DO [address] [place] [address] Pending Results Name Type Priority Associated Diagnoses Date /Time CULTURE, URINE, QUANTITATIVE Lab Routine Dysuria 07/19/2023 10:08 AM EST Health Maintenance Due Date Last Done Comments [...] this encounter Medical Devices Implanted Type Area O And M Supervisor Device Identifier Shelf Expiration Date Model / Serial / Lot Lens Intraoc 15.5 - [id number] - [id number] Implanted:Qty: 1 on 06/18/2018 by Pratik Zazueta MD at OR [facility] Right: Eye [employer] 11/26/2021 [id number] / [id number] / [id number] Lens Intraoc 17.0 - [id number] - [id number] Implanted:Qty: 1 on 06/24/2018 by Pratik Zazueta MD at OR [facility] Left: Eye [employer]OMB 01/26/2023 [id number] / [id number] / [id number] documented as of this encounter Visit Diagnoses Diagnosis Dysuria documented in this encounter Care Teams Ammunition Officer Relationship Specialty Start Date End Date Jomar Thompson MD [address] [facility] [address] PCP - General Internal Medicine 05/27/21 documented as of this encounter
--- OUTSIDE RECORDS SUMMARY | 2023-07-20 17:17 | External Medical Summary | Summary of Care ---
Author Name Unknown Organization [facility] Address [address] [place] [address] Phone [phone] Care Team Providers Care Manager Garden Name Role Phone Jomar Thompson MD Primary Care Provider + Reason for Visit * Reason Onset Date Comments Surgery 06/15/2023 Encounter Details Date Type Department Care Team (Late st Contact Info) Description 06/15/2023 Telephone Urogynecology [facility] [address] [place] [address] Vj Mao MD [address] [place] [address] Surgery Allergies No known active allergiesdocumented as of this encounter (statuses as of 07/02/2023) Medications Medication Sig Dispensed Refills Start Date [...] morning. 90 Tablet 3 06/06/2023 05/31/2024 Active documented as of this encounter (statuses as of 07/02/2023) Active Problems Problem Noted Date Diagnosed Date [...] as of this encounter (statuses as of 07/02/2023) Resolved Problems Problem Noted Date Diagnosed Date [...] as of this encounter (statuses as of 07/02/2023) Immunizations Name Administration Dates Next Due COVID-19 mRNA, LNP-s, No Pre serve, 2-Dose Series (AlphaStripe) 03/31/2021,09/25/2020,09/04/2020 H1N1 2009 Influenza, IM 06/28/2009 Pneumococcal [...] on file documented as of this encounter Miscellaneous Notes * Telephone Encounter - Brina Dao OSA - 06/29/2023 3:33 PM EST Pt left message on 06/15/2023 stating is waiting call from OR planner scheduler - was hoping to speak with her - also was unable to get Gemtesa and wanted update on medication Called pt back - was able to order picker/assembler Gemtesa - transferred call to OR planner scheduler Routing to OR planner scheduler documented in this encounter Plan of Treatment Upcoming Encounters Date Type Department Care Team (Late st Contact Info) Description 07/05/2023 9:45 AM EST Office Visit Urogynecology Thai Jensen [address] [place] [address] Yahaira Reed PA-C [address] [place] [address] Nurse Ursula Jensen [address] [place] [address] 09/12/2023 4:20 PM EST Office Visit General Internal Medicine [facility] [address] [facility] [place] [address] Jomar Thompson MD [address] [facility] [place] [address] 10/29/2023 8:00 AM EDT Office Visit Cardiology, [facility] [place] [address] [place] [address] Pepe Mckeon DO [address] [place] [address] Health Maintenance Due Date Last Done Comments [...] this encounter Medical Devices Implanted Type Area Staff Pharmacist Hospital Device Identifier Shelf Expiration Date Model / Serial / Lot Lens Intraoc 15.5 - [id number] - [id number] Implanted:Qty: 1 on 06/18/2018 by Pratik Zazueta MD at OR [facility] Right: Eye [employer]OM[employer] 11/26/2021 [id number] / [id number] / [id number] Lens Intraoc 17.0 - [id number] - [id number] Implanted:Qty: 1 on 06/24/2018 by Pratik Zazueta MD at OR [facility] Left: Eye [employer]CH [employer] LOMB 01/26/2023 [id number] / [id number] / [id number] documented as of this encounter Care Teams Manager Garden Relationship Specialty Start Date End Date Jomar Thompson MD [address] [place] [address] PCP - General Internal Medicine 05/27/21 documented as of this encounter
--- OUTSIDE RECORDS SUMMARY | 2023-07-20 17:17 | External Medical Summary | Summary of Care ---
Author Name Unknown Organization [facility] Address [address] [place] [address] Phone [phone] Care Team Providers Care Cloud Services Architect Name Role Phone Jomar Garcia MD Primary Care Provider + Reason for Visit * Reason Comments eRx-Medication Refill Encounter Details Date Type Department Care Team (Late st Contact Info) Description 06/20/2023 Refill General Internal Medicine [facility] [address] [place] [address] Jomar Garcia MD [address] [place] [address] Anxiety state Allergies No known active allergiesdocumented as of this encounter (statuses as of 06/22/2023) Medications Medication Sig Dispensed Refills Start Date End Date Status FISH OIL 1000 MG PO CAPS 2 tabs daily 0 Active CALCIUM 600 + D 600-200 MG-UNIT PO TABS 1 daily 0 07/08/2008 Active MAG-OX 400 400 MG PO TABSIndications: Atrial premature beats one tablet daily 90 3 12/01/2008 Active ASPIRIN 81 MG PO CHEW One pill by mouth once a day with food 0 07/17/2013 Active MULTIVITAMINS PO CAPS 2 capsules daily 0 10/30/2013 Active furosemide (LASIX) 20 MG TabletIndication s:Ischemic heart disease Take 1 Tab by mouth daily. 90 Tab 3 12/24/2019 Active Additional Information Patient taking differently:20 mg OralDAILY PRN, Reported on 08/18/2022 Apple Cider Vinegar Plus Oral Tablet Take by mouth. 0 Active Atorvastatin Calcium 40 MG Oral Tablet (Lipitor) Take 1 Tablet by mouth in the morning. 90 Tablet 2 01/11/2023 Active Sertraline HCl 50 MG Oral Tablet (Zoloft)Indicati ons:Current moderate episode of major depressive disorder without prior episode (HCC) Take 1 Tablet by mouth in the morning. 90 Tablet 1 02/20/2023 Active Metoprolol Succinate ER 25 MG Oral Tablet Extended Release 24 Hour (toPROL XL)Indications:I schemic heart disease,Dyslipid emia, goal LDL below 70,PVC (premature ventricular contraction) [...] in the morning. 90 Tablet 3 06/06/2023 4 Active LORazepam 1 MG Oral Tablet (Ativan)Indicati ons:Anxiety state TAKE 1 TABLET THREE TIMES A DAY NEEDED FOR ANXIETY 30 Tablet 1 06/22/2023 Active LORazepam 1 MG Oral Tablet (Ativan)Indicati ons:Anxiety state One pill by mouth 3 times a day as needed for anxiety 30 Tablet 1 02/21/2023 3 Discontinued documented as of this encounter (statuses as of 06/22/2023) Active Problems Problem Noted Date Diagnosed Date [...] as of this encounter (statuses as of 06/22/2023) Resolved Problems Problem Noted Date Diagnosed Date [...] as of this encounter (statuses as of 06/22/2023) Immunizations Name Administration Dates Next Due COVID-19 mRNA, LNP-s, No Pre serve, 2-Dose Series ([employer]) 03/31/2021,09/25/2020,09/04/2020 H1N1 2009 Influenza, IM 06/28/2009 Pneumococcal [...] encounter Miscellaneous Notes * Telephone Encounter - Jomar Garcia MD - 06/22/2023 8:18 AM ESTSigned Prescriptions: Disp Refills LORazepam 1 MG Oral Tablet (Ativan) 30 Tab*1 Sig: TAKE 1 TABLET THREE TIMES A DAY NEEDED FOR ANXIETY Authorizing Provider: JOMAR GARCIA * Telephone Encounter - Madhavi [facility] - 06/22/2023 4:40 AM ESTPending Prescriptions: Disp Refills LORazepam 1 MG Oral Tablet [Pharmacy Med N*30 Tab*1 Sig: TAKE 1 TABLET THREE TIMES A DAY NEEDED FOR ANXIETY * Telephone Encounter - Madhavi [facility] - 06/22/2023 4:40 AM EST I have reviewed the patients controlled substance dispensing history in the Prescription Drug Monitoring Program in compliance with the [facility] regulations before prescribing a controlled substance. PDMP checked on 06/22/2023. Pending Prescriptions: Disp Refills LORazepam 1 MG Oral Tablet (Ativan) [Phar*30 Tab*1 Sig: TAKE 1 TABLET THREE TIMES A DAY NEEDED FOR ANXIETY Last Visit: 02/20/2023 (in office), Visit date not found (telemedicine) Next Visit: 09/12/2023 Date medication was last filled: 03/29/23 Date medication is due for refill: 04/08/23 Pharmacy: [facility] Is this request for a controlled substance? Yes and Urine Drug Screen Not completed Toxicology results: No results found for this or any previous visit. Please approve if appropriate. Thank You, Madhavi [facility] Clinical Pharmacist [facility] ([facility]) (formerly Telepharmacy) [phone] 06/22/2023, 4:40 AM documented in this encounter Plan of Treatment Upcoming Encounters Date Type Department Care Team (Late st [facility]) Description 07/05/2023 9:45 AM EST Office Visit Urogynecology [facility] [address] [place] [address] Yahaira Reed PA-C [address] [place] [address] Nurse Ursula Jensen [facility] [address] [place] [address] 09/12/2023 4:20 PM EST Office Visit General Internal Medicine [facility] [address] [facility] [place] [address] Jomar Garcia MD [address] [facility] [place] [address] 10/29/2023 8:00 AM EDT Office Visit Cardiology, [facility] [address] [place] [address] Pepe Mckeon DO [address] [place] [address] Health Maintenance Due Date Last Done Comments [...] this encounter Medical Devices Implanted Type Area Measurement Coordinator Device Identifier Shelf Expiration Date Model / Serial / Lot Lens Intraoc 15.5 - [id number] - [id number] Implanted:Qty: 1 on 06/18/2018 by Pratik Zazueta MD at [facility] Right: Eye [employer] 11/26/2021 [id number] / [id number] / [id number] Lens Intraoc 17.0 - [id number] - [id number] Implanted:Qty: 1 on 06/24/2018 by Pratik Zazueta MD at OR [facility] Left: Eye [employer] 01/26/2023 [id number] / [id number] / [id number] documented as of this encounter Visit Diagnoses Diagnosis Anxiety state Anxiety state, unspecified documented in this encounter Care Teams Cloud Services Architect Relationship Specialty Start Date End Date Jomar Garcia MD [address] [facility] [place] [address] PCP - General Internal Medicine 05/27/21 documented as of this encounter
--- OUTSIDE RECORDS SUMMARY | 2023-07-20 17:18 | External Medical Summary | Summary of Care ---
Author Name Unknown Organization [facility] Address [address] [place] [address] Phone [phone] Care Team Providers Care Concierge Name Role Phone Jomar Thompson MD Primary Care Provider + Reason for Visit * Reason Comments Consultation * Evaluate & Treat - Unlimited Visits (Within 30 days (routine)) - Authorized Specialty Diagnoses / Procedures Referred By Bryn sneed Referred To Contact CLAIMS SERVICE REPRESENTATIVE - Urogynecology / Gynecology Urology Diagnoses Urge incontinence of urine Pelvic pressure in female Jomar Thompson MD [address] [place] [address] Referral ID Status Reason Start Date Expiration Date Visits Requested Visits Authorized [id number] Authorized Specialty Services Required [phone] Encounter Details Date Type Department Care Team (Late st Contact Info) Description 06/06/2023 10:25 AM EST Office Visit Urogynecologshanae Jensen [address] [place] [address] Vj Mao MD [address] [place] [address] Nurse Ursula Jensen [address] [place] [address] Uterovaginal prolapse, incomplete*; Atrophic vaginitis; Mixed incontinence urge and stress Allergies No known active allergiesdocumented as of this encounter (statuses as of 06/06/2023) Medications Medication Sig Dispensed Refills Start Date [...] the morning. 90 Tablet 1 02/20/2023 Active LORazepam 1 MG Oral Tablet (Ativan)Indication s:Anxiety state One pill by mouth 3 times a day as needed for anxiety 30 Tablet 1 02/21/2023 Active Metoprolol Succinate ER 25 MG Oral [...] morning. 90 Tablet 3 06/06/2023 4 Active Tolterodine Tartrate ER 4 MG Oral Capsule Extended Release 24 Hour (Detrol LA)Indications:Fem alexandra stress incontinence Take 1 Capsule by mouth in the morning. 90 Capsule 3 10/06/2022 3 Discontinue d(Patient preference/ discontinua tion) documented as of this encounter (statuses as of 06/06/2023) Active Problems Problem Noted Date Diagnosed Date [...] as of this encounter (statuses as of 06/06/2023) Resolved Problems Problem Noted Date Diagnosed Date [...] as of this encounter (statuses as of 06/06/2023) Immunizations Name Administration Dates Next Due COVID-19 mRNA, LNP-s, No Pre serve, 2-Dose Series (Pfizer) 03/31/2021,09/25/2020,09/04/2020 H1N1 2009 Influenza, IM 06/28/2009 Pneumococcal [...] 0.5 15 Smokeless Tobacco: Former Quit: 07/30/2010 Tobacco Cessation:Counseling Given: Not Answered Comments:quit smoking 5years 1/2 pack per day [...] Sign Reading Time Taken Comments Blood Pressure 138/78 06/06/2023 10:49 AM EST Pulse - - Temperature - - Respiratory Rate - - Oxygen Saturation - - Inhaled Oxygen Concentration - - Weight 71 kg (156 lb 9.6 oz) 06/06/2023 10:49 AM EST Height - - Body Mass Index 28.64 02/20/2023 3:11 PM EDT documented in this encounter Progress Notes * Vj Mao MD - 06/06/2023 10:58 AM EST Jessi Solis is a 72 year old female P 3 here for evaluation of urinary incontinence and burning. Referred by Jomar Thompson MD. Jessi Solis has history of uterovaginal prolapse and incontinence who complains of worsening urge incontinence symptoms. She is also having vaginal burning with her initial urinary flow. She usesthe restroom 7-8 times in the day, once overnight. She feels that her urinary flow is normal and she feels empty after she voids. She denies having a UTI this past year. She denies TANNER with coughing or sneezing. She was using Premarin cream for atrophy, but was not able to get the RX refilled. She did try a pessary in the past, but found it too inconvenient. She considered having surgery for prolapse in 2019, but decided against it at the time. Urinary: Leakage: urge incontinence Has leakage daily Wears pads: yes She denies a sense of incomplete bladder emptying. Prior/current treatment include: detrol UTI: denies Voiding detail: Daytime frequency: 7-8 times Urgency yes Nocturia:0-1 Hesitancy no Straining no Hematuria no Postvoid dribbling no Postvoid urgency no Manual reduction no Drinks: water Prolapse: She admits a palpable bulge. Pelvic pressure symptoms have worsened in the past year GI: Bowel habits: normal bowel movement She denies fecal incontinence. Prior/ current treatments include: none Gynecologic history: No prior gynecologic history. 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 Insomnia G47.00 Abnormal echocardiogram R93.1 Palpitations R00.2 Anxiety F41.9 Dyslipidemia, goal LDL below 70 E78.5 Ischemic heart disease I25.9 PVC (premature ventricular contraction) I49.3 Gastroesophageal reflux disease without esophagitis K21.9 Incomplete uterovaginal prolapse N81.2 Cystocele, lateral N81.12 Rectocele N81.6 Urge incontinence of urine N39.41 Feeling of incomplete bladder emptying R39.14 Mild mitral regurgitation I34.0 Diastolic dysfunction I51.89 Past Medical History: Diagnosis Date Depression Diastolic dysfunction 05/10/2022 Disc disorder of lumbar region 02/24/2008 Dyslipidemia, goal LDL below 130 07/18/2013 Female stress incontinence Heart attack (HCC) Hypertension Insomnia, unspecified Mild mitral regurgitation 05/10/2022 Patient sees Jomar Thompson MD as her primary care provider. Surgical History: Past Surgical History: Procedure Laterality Date COLONOSCOPY 03/23/2003 every 5 years: colon polyps COLONOSCOPY, DIAGNOSTIC (RECTUM) 03/2008 f/u 5 years MAMMOGRAM SCREENING BILATERAL 03/14/2011 birad 2, repeat in 12mths [place] OPEN REPAIR OF ROTATOR CUFF ACUTE Right 05/22/2022 REMOVAL OF OVARY(S) 1972 cyst on ovary REMOVE CATARACT, INSERT LENS PROSTH Right 06/18/2018 right EXTRACAPSULAR CATARACT REMOVAL WITH INTRAOCULAR LENS performed by Pratik Zazueta MD at OR [facility] REMOVE CATARACT, INSERT LENS PROSTH Left 06/24/2018 left EXTRACAPSULAR CATARACT REMOVAL WITH INTRAOCULAR LENS performed by Pratik Zazueta MD at OR [facility] WRIST ARTHROSCOPY, DIAGNOSTIC 2018 OB History 4 Para 3 Term 3 AB 1 Living 3 SAB 1 IAB Ectopic Multiple Live Births Weight of largest baby: 9-8 Vaginal deliveries: 3 C/S: 0 Allergies: Review of patient's allergies indicates: No Known Allergies Active Medications: Current Outpatient Medications Medication Sig Dispense Refill FISH OIL 1000 MG PO CAPS 2 tabs daily CALCIUM 600 + D 600-200 MG-UNIT PO TABS 1 daily MAG-OX 400 400 MG PO TABS one tablet daily 90 3 ASPIRIN 81 MG PO CHEW One pill by mouth once a day with food MULTIVITAMINS PO CAPS 2 capsules daily furosemide (LASIX) 20 MG Tablet Take 1 Tab by mouth daily. (Patient taking differently: Take 1 Tablet by mouth daily as needed.) 90 Tab 3 Apple Cider Vinegar Plus Oral Tablet Take by mouth. Atorvastatin Calcium 40 MG Oral Tablet (Lipitor) Take 1 Tablet by mouth in the morning. 90 Tablet 2 Sertraline HCl 50 MG Oral Tablet (Zoloft) Take 1 Tablet by mouth in the morning. 90 Tablet 1 LORazepam 1 MG Oral Tablet (Ativan) One pill by mouth 3 times a day as needed for anxiety 30 Tablet1 Metoprolol Succinate ER 25 MG Oral Tablet Extended Release 24 Hour (toPROL XL) TAKE ONE-HALF (1/2) TABLET DAILY 90 Tablet 3 Omeprazole 20 MG Oral Capsule Delayed Release (PriLOSEC) Take 1 Capsule by mouth in the morning. 1 hour before the first meal of the day.. 90 Capsule 3 Meloxicam 15 MG Oral Tablet 1 Tablet as needed. Estradiol 0.1 MG/GM Vaginal Cream (Estrace) Apply pea sized amount (0.5 gm) vaginally every other night 42.5 g 3 Gemtesa 75 MG Oral Tablet (Vibegron) Take 1 Tablet by mouth in the morning. 90 Tablet 3 Fish Oil 300 MG Oral Capsule Take 1 (1,000 mg) capsule by oral route 2 times every day No current facility-administered medications for this visit. Social History: Social History Socioeconomic History Marital status: Tobacco Use Smoking status: Former Packs/day: 0.50 Years: 15.00 Additional pack years: 0.00 Total pack years: 7.50 Types: Cigarettes Smokeless tobacco: Former Quit date: 07/30/2010 Tobacco comments: quit smoking 5years 1/2 pack per day for 15 years Substance and Sexual Activity Alcohol use: Yes Comment: 5 drinks a week Drug use: No Sexual activity: Yes Partners: Male Social Determinants of Health Food Insecurity: No Food Insecurity (08/18/2022) Hunger Vital Sign Worried About Running Out of Food in the Last Year: Never true Ran Out of Food in the Last Year: Never true Family History: Family History Problem Relation Age of Onset Stroke Mother Diabetes Mother Heart Disorder Father Diabetes Father No Past Hx Other Breast, Ovarian, or Colon CA CONSTITUTIONAL ROS: No change in weight, No weakness and No fatigue NECK ROS: No lumps or masses, PULMONARY ROS: No recent change in breathing CARDIOVASCULAR ROS: No chest pain, No shortness of breath and No dyspnea on exertion BREAST ROS: denies GASTROINTESTINAL ROS: No abdominal pain,as per HPI GENITO-URINARY FEMALE ROS: As per HPI MSK/EXTREMITIES ROS: disc disorder of lumbar back. SKIN/INTEGUMENTARY ROS: No rash and No itching NEUROLOGICAL ROS: Normal balance No weakness PSYCHIATRIC ROS: no depression and no anxiety Yarn Comber Documentation: Provider requested phlebotomy services technician Name of Yarn Comber: Sangita Siu Blood pressure 138/78, weight 71 kg (156 lb 9.6 oz), not currently . Blood pressure %sean are not available for patients who are 18 years or older. Body mass index is 28.64 kg/m. EXAM: Well developed well nourished female in no apparent distress. Alert oriented x3 HEENT: NC AT HEART: Normal peripheral pulse, edema neg THYROID: no obvious neck mass LUNG: No increased respiratory effort ABDOMEN: Soft, NT, ND, no masses PELVIC EXAM: Ext. Gen: Normal external female genitalia, no vulvar lesions. Clitoris, labia, minor vestibular glands and urethral meatus appear normal. Urethra and bladder palpated non-tender with no masses and no expressible exudate. Vagina atrophic without lesions. Cervix: nl BIMANUAL EXAM: no cervical motion tenderness, the uterus is smooth, mobile, non tender and of normal size. No adnexal masses or tenderness elicited. WEAVER HAND LOOM: positive Levator ani muscle strength 3. No tenderness elicited on palpation Rectovaginal exam: perianal area normal, anus normal Aa +1 Ba +1 C -3 GH 3 PB 3 TVL 10 Ap -1 Bp -1 D -4 The following data points/ labs were reviewed: Results for orders placed or performed in visit on 02/22/23 COMPREHENSIVE METABOLIC PANEL Result Value Ref Range BUN 17 6 - 20 mg/dL Creatinine 0.9 0.5 - 1.0 mg/dL Estimated Glomerular Filtration Rate 70 >=60 mL/min Sodium 141 135 - 146 mmol/L Potassium 4.9 3.5 - 5.1 mmol/L Chloride 105 98 - 107 mmol/L CO2 26 22 - 32 mmol/L Anion Gap 10 7 - 15 mmol/L Glucose 100 70 - 120 mg/dL Albumin 4.3 3.8 - 5.0 g/dL AST 29 10 - 35 U/L Alkaline Phosphatase 99 35 - 130 U/L Bilirubin, Total 0.6 <=1.2 mg/dL Calcium 10.2 8.4 - 10.2 mg/dL Protein 6.5 6.0 - 8.3 g/dL ALT 30 10 - 35 U/L LIPID PANEL WITH DIRECT LDL IF TG IS HIGH Result Value Ref Range Triglycerides 65 <=174 mg/dL Cholesterol 161 <200 mg/dL HDL Cholesterol 86 >49 mg/dL Non-HDL Cholesterol 75 <=159 mg/dL LDL Cholesterol 62 <=129 mg/dL TSH Result Value Ref Range TSH 1.07 0.27 - 4.20 uIU/mL VITAMIN B12 Result Value Ref Range Vitamin B12 887 232 - 1,245 pg/mL MAGNESIUM Result Value Ref Range Magnesium 2.4 1.5 - 2.6 mg/dL MYCODE SST1 Result Value Ref Range MyCode Specimen Freezing of extracted DNA, whole blood and/or serum. MYCODE SST2 Result Value Ref Range MyCode Specimen Freezing of extracted DNA, whole blood and/or serum. CBC Result Value Ref Range WBC 6.35 4.00 - 10.80 K/uL RBC 4.66 3.85 - 5.15 M/uL HGB 15.1 12.0 - 15.3 g/dL HCT 44.0 36.0 - 45.2 % MCV 94.4 81.5 - 97.5 fL MCH 32.4 27.0 - 34.0 pg MCHC 34.3 32.0 - 36.0 g/dL RDW 14.1 11.5 - 15.5 % PLT 237 140 - 400 K/uL MPV 9.6 6.6 - 11.1 fL DIFFERENTIAL, AUTOMATED Result Value Ref Range WBC 6.35 4.00 - 10.80 K/uL Neutrophils % 54.1 40.0 - 75.0 % Lymphocytes % 32.0 18.0 - 42.0 % Monocytes % 10.7 1.0 - 11.0 % Eosinophils % 2.7 0.0 - 6.0 % Basophils % 0.5 0.0 - 2.0 % Absolute Neutrophils 3.44 1.80 - 7.70 K/uL Absolute Lymphocytes 2.03 1.00 - 4.80 K/ul Absolute Monocytes 0.68 0.00 - 1.10 K/uL Absolute Eosinophils 0.17 0.00 - 0.70 K/uL Absolute Basophils 0.03 0.00 - 0.20 K/uL PVR: 91 ml via bladder scan Records/ Imaging/ Results reviewed include: urogynecology notes from 2019 Impression: This is a 72 year old with: Uterovaginal prolapse, incomplete (Primary) - URINALYSIS OBSTETRICS, POINT OF CARE (ENTER/EDIT) - CULTURE, URINE, QUANTITATIVE Atrophic vaginitis - URINALYSIS OBSTETRICS, POINT OF CARE (ENTER/EDIT) - CULTURE, URINE, QUANTITATIVE Mixed incontinence urge and stress - URINALYSIS OBSTETRICS, POINT OF CARE (ENTER/EDIT) - CULTURE, URINE, QUANTITATIVE Other orders - Estradiol 0.1 MG/GM Vaginal Cream (Estrace); Apply pea sized amount (0.5 gm) vaginally every other night - Gemtesa 75 MG Oral Tablet (Vibegron); Take 1 Tablet by mouth in the morning. Follow Up: Return in about 4 weeks (around 07/04/2023) for Clinic Visit. | For: Clinic Visit | Check-out note: Med check in 4-6 weeks For the burning and atrophy: Recommended restarting the topical estrogen cream. Risks, benefits, and alternatives reviewed. Urge incontinence: Will switch to Gemtesa 75 mg daily. Side effects, risks, benefits, and alternatives reviewed. Prolapse and TANNER: Patient is not interested in the pessary therapy and desires surgery. We reviewedtransvaginal surgery vs robotic. Patient prefers transvaginal. We agreed to vaginal hysterectomy, removal of tubes and ovary, uterosacral ligament suspension, anterior and posterior colporrhaphy, sling, and cystoscopy. Risks of infection, bleeding, injury, pain, mesh exposure, urinary retention, pain, and recurrence were reviewed. All questions answered. Patient desires to schedule. Vj Mao MD 06/06/2023 10:58 AM I spent a total of 45 minutes on the date of service in preparation, delivery, and documentation ofthe care provided to Jessi Solis excluding any time spent in the performance of separately billed services. Urogynecology Surgical Checklist Patient Name: Jessi Solis Date of : 1950 Surgery Date: next Physician: Daylin Online Content Coordinator Needed: Yes Location: [facility] Admission Type: 23 Hour Observation Anesthesia: General Anesthesia Consult Needed: No Pre-Operative Labs/Testing: CBC, BMP, Type & Screen, and ECG Pre-Surgical Interview (PATS): Phone Consent Done: No Medicaid Hysterectomy Consent Done: No COVID-19 Testing Date: n/a Surgery Cling (Education) Given to Patient: No Anticoagulation: No (except aspirin) Stopped Anticoagulation: No Coagulation Clinic: No Medical Clearance Needed: No Cardiac Clearance Needed: Yes [facility] Teaching Complete: No Special Requests (case length variation from average, vendor, equipment): desara one sling, cystoscope Post-Operative Follow-Up: Appointment in 4 weeks Post-Operative Restrictions/Time Off: 6 weeks Procedures (CPT code): 36794 - Mid urethral sling (polypropylene mesh) 99149 - Combined anterior/posterior colporrhaphy 18335 - Total vaginal hysterectomy with bilateral salpingo-oophorectomy (TVH/BSO) 74571 - Uterosacral vaginal vault suspension (VVS) Diagnoses (ICD-10 code): N39.3 - Stress incontinence N81.2 - Uterovaginal prolapse, incomplete documented in this encounter Nursing Notes * Theresa Rich, RN - 06/06/2023 10:46 AM EST Patient presents to the clinic for evaluation of occasional pain (burning) with urination as well as pressure that she feels. This has been going on for appx three months. She notes that the burning is happening more frequently. She also states that she is incontinent at times when she feels the urge to void and occasionally leaks with stress incontinence. She has been onDetrol for a few years and no longer feels that it is working well for her. documented in this encounter Plan of Treatment Upcoming Encounters Date Type Department Care Team (Late st Contact Info) Description 07/05/2023 9:45 AM EST Office Visit Urogynecology [facility] [address] [place] [address] Yahaira Reed PA-C [address] [place] [address] Nurse Ursula Jensen [address] [place] [address] 09/12/2023 4:20 PM EST Office Visit General Internal Medicine [facility] [address] [place] [address] Jomar Thompson MD [address] [place] [address] 10/29/2023 8:00 AM EDT Office Visit Cardiology, [facility] [address] [place] [address] Pepe Mckeon DO [address] [place] [address] Scheduled Orders Name Type Priority Associated Diagnoses Orde r Schedule URINALYSIS OBSTETRICS, POINT OF CARE (ENTER/EDIT) Point of Care Testing Routine Uterovaginal prolapse, incomplete Atrophic vaginitis Mixed incontinence urge and stress Ordered: 06/06/2023 CULTURE, URINE, QUANTITATIVE Lab Routine Uterovaginal prolapse, incomplete Atrophic vaginitis Mixed incontinence urge and stress Ordered: 06/06/2023 CBC Lab Routine Uterovaginal prolapse, incomplete Atrophic vaginitis Mixed incontinence urge and stress Expected: 06/06/2023, Expires: 06/06/2024 BASIC METABOLIC PANEL Lab Routine Uterovaginal prolapse, incomplete Atrophic vaginitis Mixed incontinence urge and stress Expected: 06/06/2023, Expires: 06/06/2024 TYPE AND SCREEN Lab Routine Uterovaginal prolapse, incomplete Atrophic vaginitis Mixed incontinence urge and stress Expected: 06/06/2023, Expires: 06/06/2024 ABO/RH Lab Routine Uterovaginal prolapse, incomplete Atrophic vaginitis Mixed incontinence urge and stress Expected: 06/06/2023, Expires: 06/06/2024 EKG EKG Routine Uterovaginal prolapse, incomplete Atrophic vaginitis Mixed incontinence urge and stress Expected: 06/06/2023 (Approximate), Expires: 06/06/2024 Health Maintenance Due Date Last Done Comments Cologuard 1993 Fecal Occult Blood Test 1993 Sigmoidoscopy 1993 Colonoscopy 04/13/2018 04/13/2008 Colorectal Cancer Screening 04/13/2018 Mammogram 06/17/2019 06/17/2018, 05/01, 05/26/2016, Additional history exists Depression Screening 08/18/2023 08/18/2022 DXA Scan 09/04/2026 09/04/2022, 11/28, 04/20/2014, Additional history exists DTaP,Tdap,and Td Vaccines (3 [...] this encounter Medical Devices Implanted Type Area Mate Fishing Vessel Device Identifier Shelf Expiration Date Model / Serial / Lot Lens Intraoc 15.5 - [id number] - [id number] Implanted:Qty: 1 on 06/18/2018 by Pratik Zazueta MD at OR [facility] Right: Eye [employer] 11/26/2021 [id number] / [id number] / [id number] Lens Intraoc 17.0 - [id number] - [id number] Implanted:Qty: 1 on 06/24/2018 by Pratik Zazueta MD at OR [facility] Left: Eye [employer] 01/26/2023 [id number] / [id number] / [id number] documented as of this encounter Visit Diagnoses Diagnosis Uterovaginal prolapse, incomplete- Primary Atrophic vaginitis Postmenopausal atrophic vaginitis Mixed incontinence urge and stress Mixed incontinence urge and stress (male)(female) documented in this encounter Care Teams Concierge Relationship Specialty Start Date End Date Jomar Thompson MD [address] [place] [address] PCP - General Internal Medicine 05/27/21 documented as of this encounter"
--- OUTSIDE RECORDS SUMMARY | 2023-07-20 17:18 | External Medical Summary | Summary of Care ---
Author Name Unknown Organization [facility] Address [address] [place] [address] Phone [phone] Care Team Providers Care Cancer Genetics Assistant Name Role Phone Jomar Thompson MD Primary Care Provider + Reason for Visit * Reason Comments eRx-Medication Refill Encounter Details Date Type Department Care Team Description 04/09/2023 Refill Cardiology, [facility] [address] [place] [address] Nyla Caballero CRNP [address] [place] [address] Ischemic heart disease; Dyslipidemia, goal LDL below 70; PVC (premature ventricular contraction) Allergies No known active allergiesdocumented as of this encounter (statuses as of 04/09/2023) Medications Medication Sig Dispensed Refills Start Date End Date Status FISH OIL 1000 MG PO CAPS 2 tabs daily 0 Active CALCIUM 600 + D 600-200 MG-UNIT PO TABS 1 daily 0 07/08/2008 Active MAG-OX 400 400 MG PO TABSIndications:A trial premature beats one tablet daily 90 3 12/01/2008 Active ASPIRIN 81 MG PO CHEW One pill by mouth once a day with food 0 07/17/2013 Active MULTIVITAMINS PO CAPS 2 capsules daily 0 10/30/2013 Active furosemide (LASIX) 20 MG TabletIndications :Ischemic heart disease Take 1 Tab by mouth daily. 90 Tab 3 12/24/2019 Active Additional Information Patient taking differently:20 mg OralDAILY PRN, Reported on 08/18/2022 Apple Cider Vinegar Plus Oral Tablet Take by mouth. 0 Active Omeprazole 20 MG Oral Capsule Delayed Release (PriLOSEC) Take by mouth 1 Capsule in the morning. 1 hour before the first meal of the day.. 90 Capsule 3 04/04/2022 Active Tolterodine Tartrate ER 4 MG Oral Capsule Extended Release 24 Hour (Detrol LA)Indications:Fe male stress incontinence Take 1 Capsule by mouth in the morning. 90 Capsule 3 10/06/2022 Active Atorvastatin Calcium 40 MG Oral Tablet (Lipitor) Take 1 Tablet by mouth in the morning. 90 Tablet 2 01/11/2023 Active Sertraline HCl 50 MG Oral Tablet (Zoloft)Indicatio ns:Current moderate episode of major depressive disorder without prior episode (HCC) Take 1 Tablet by mouth in the morning. 90 Tablet 1 02/20/2023 Active LORazepam 1 MG Oral Tablet (Ativan)Indicatio ns:Anxiety state One pill by mouth 3 times a day as needed for anxiety 30 Tablet 1 02/21/2023 Active Metoprolol Succinate ER 25 MG Oral Tablet Extended Release 24 Hour (toPROL XL)Indications:Is chemic heart disease,Dyslipide manjeet, goal LDL below 70,PVC (premature ventricular contraction) TAKE ONE-HALF (1/2) TABLET DAILY 90 Tablet 3 04/09/2023 Active Metoprolol Succinate ER 25 MG Oral Tablet Extended Release 24 Hour (toPROL XL)Indications:Is chemic heart disease,Dyslipide manjeet, goal LDL below 70,PVC (premature ventricular contraction) TAKE ONE-HALF (1/2) TABLET DAILY 90 Tablet 3 04/04/2022 04/09/20 23 Discontinued documented as of this encounter (statuses as of 04/09/2023) Active Problems Problem Noted Date Mild mitral regurgitation 05/10/2022 Diastolic dysfunction 05/10/2022 Incomplete uterovaginal prolapse 019 Cystocele, lateral 11/15/2018 Rectocele 11/15/2018 Urge incontinence of urine 11/15/2018 Feeling of incomplete bladder emptying 0 11/15/2018 Gastroesophageal reflux disease without esophagitis 12/08/2015 PVC (premature ventricular contraction) 04/06/2015 Dyslipidemia, goal LDL below 70 05/25/20 14 Ischemic heart disease 05/25/2014 Overview: Echo evidence of RCA territory infarct. Anxiety 02/04/2014 Palpitations 12/29/2013 Abnormal echocardiogram 07/18/2013 Stress incontinence 02/24/2008 Disc disorder of lumbar region 8 Insomnia Overview: ICD-10 update of inactive term documented as of this encounter (statuses as of 04/09/2023) Resolved Problems Problem Noted Date Resolved Date Advanced directives, counseling/discussion 11/1508/01/2021 Overview: Scanned 2004 Dyslipidemia, goal LDL below 130 07/18/2013 05/25/2014 Abnormal ECG 07/18/2013 01/05/2020 Dyslipidemia, goal LDL below 160 10/11/2010 07/18/2013 Dyslipidemia, goal to be determined 07/13/2009 10/11/2010 Overview: Per Lipid Taxonomy. Dyslipidemia, goal LDL below 160 07/08/2008 07/13/2009 Overview: Per Lipid Taxonomy. Osteoporosis 07/08/2008 01/04/2017 documented as of this encounter (statuses as of 04/09/2023) Immunizations Name Administration Dates Next Due COVID-19 mRNA, LNP-s, No Pre serve, 2-Dose Series ([place]) 03/31/2021,09/25/2020,09/04/2020 H1N1 2008 Influenza, IM 06/28/2009 Pneumococcal Conjugate Vacc, 13 Valent (Prevnar) 05/22/2016 Pneumococcal Polysaccharide PPV23 (Pneumovax) 12/29/2013 Season Influenza, Quad, PF, Adjuvanted, 65+ Yrs, IM (FLUAD) 03/22/2021,03/22/2020 Seasonal Influenza, PF, 6 mo ns & Above, IM , (Flulaval) 04/05/2017 Seasonal Influenza, Split, I IV3, With [...] pur e alcohol) 5 drinks a week Food Insecurity Answer Date Recorded Within the past 12 months, y ou worried that your food would run out before you got money to buy more. Never true 08/18/2022 Within the past 12 months, t he food you bought just didn't last and you didn't have money to get more. Never true 08/18/2022 Sex Assigned at Date Recorded Female 12/13/2018 8:57 AM E DT Job Start Date Occupation Industry Not on file Not on file Not on file documented as of this encounter Miscellaneous Notes * Telephone Encounter - Marlin Wilhelm PA-C - 04/09/2023 1:04 PM EDTSigned Prescriptions: Disp Refills Metoprolol Succinate ER 25 MG Oral Tablet *90 Tab*3 Sig: TAKE ONE-HALF (1/2) TABLET DAILY Authorizing Provider: MARLIN WILHELM * Telephone Encounter - Stefanie Mcadams LPN - 04/09/2023 10:40 AM EDTPending Prescriptions: Disp Refills Metoprolol Succinate ER 25 MG Oral Tablet *90 Tab*3 Sig: TAKE ONE-HALF (1/2) TABLET DAILY * Telephone Encounter - Stefanie Mcadams LPN - 04/09/2023 10:39 AM EDT Pending Prescriptions: Disp Refills Metoprolol Succinate ER 25 MG Oral Tablet*90 Tab*3 Sig: TAKE ONE-HALF (1/2) TABLET DAILY documented in this encounter Plan of Treatment Upcoming Encounters Date Type Specialty Care Team Description 09/12/2023 Office Visit Internal Medicine Jomar Thompson MD [address] [facility] [place] [address] 10/29/2023 Office Visit Cardiology Pepe Mckeon DO [address] [place] [address] Health Maintenance Due Date Last Done Comments Cologuard 1993 Fecal Occult Blood Test 1993 Sigmoidoscopy 1993 Colonoscopy 04/13/2018 04/13/2008 Colorectal Cancer Screening 04/13/2018 Mammogram 06/17/2019 06/17/2018, 05/01, 05/26/2016, Additional history exists COVID-19 Vaccine (4 - Pfizer series) 05/26/2021 03/31/2021, 09/25/2020, 09/04/2020 Influenza Vaccine (FLU shot) (#1) 2023 05/03/2022, 03/22/2021, 03/22/2020, Additional history exists Depression Screening 08/18/2023 08/18/2022 DXA Scan 09/04/2026 09/04/2022, 11/28, 04/20/2014, Additional history exists DTaP,Tdap,and Td Vaccines (3 - Td or Tdap) 12/18/2028 12/18/2018, 02/24/2008 Pneumococcal Vaccine: 65+ Years Completed 05/22/2016, 12/29/2013 Zoster Vaccines Completed 03/14/2020, 12/28, 11/16/2011 GARDASIL-HPV IMMUNIZATION SERIES Aged Out No longer eligible based on patient's age to complete this topic Hepatitis B Aged Out No longer eligi ble based on patient's age to complete this topic MENINGOCOCCAL (MENACTRA/MENVEO) Aged Out No longer eligible based on patient's age to complete this topic documented as of this encounter Medical Devices Implanted Type Area Transfer Car Operator Drier Device Identifier Shelf Expiration Date Model / Serial / Lot Lens Intraoc 15.5 - [id number] - [id number] Implanted:Qty: 1 on 06/18/2018 by Pratik Zazueta MD at OR [facility] Right: Eye [employer]OM[employer] 11/26/2021 [id number] / [id number] / [id number] Lens Intraoc 17.0 - [id number] - [id number] Implanted:Qty: 1 on 06/24/2018 by Pratik Zazueta MD at OR [facility] Left: Eye BAUSCH & LOMB 01/26/2023 [id number] / [id number] / [id number] documented as of this encounter Visit Diagnoses Diagnosis Ischemic heart disease Chronic ischemic heart disease, unspecified Dyslipidemia, goal LDL below 70 Other and unspecified hyperlipidemia PVC (premature ventricular contraction) Other premature beats documented in this encounter Care Teams Cancer Genetics Assistant Relationship Specialty Start Date End Date Jomar Thompson MD [address] [place] [id number] PCP - General Internal Medicine 05/27/21 documented as of this encounter
--- OUTSIDE RECORDS SUMMARY | 2023-07-20 17:18 | External Medical Summary | Summary of Care ---
Author Name Unknown Organization [facility] Address [address] [place] [address] Phone [phone] Care Team Providers Care Crossing Watchman Name Role Phone Jomar Thompson MD Primary Care Provider + Reason for Visit * Reason Onset Date Comments Precert Approved 06/14/2023 Gemtesa 75MG ta blets Encounter Details Date Type Department Care Team (Late st Contact Info) Description 06/14/2023 Telephone Urogynecology [facility] [address] [place] [address] Vj Mao MD [address] [facility] [place] [address] Precert Approved (Gemtesa 75MG tablets) Allergies No known active allergiesdocumented as of this encounter (statuses as of 06/18/2023) Medications Medication Sig Dispensed Refills Start Date [...] morning. 90 Tablet 3 06/06/2023 05/31/2024 Active Cephalexin 500 MG Oral Capsule (Keflex) Take 1 Capsule by mouth in the morning and 1 Capsule before bedtime. Do all this for 7 days. Until gone.. 14 Capsule 0 06/08/2023 06/15/2023 documented as of this encounter (statuses as of 06/18/2023) Active Problems Problem Noted Date Diagnosed Date [...] as of this encounter (statuses as of 06/18/2023) Resolved Problems Problem Noted Date Diagnosed Date [...] as of this encounter (statuses as of 06/18/2023) Immunizations Name Administration Dates Next Due COVID-19 [...] encounter Miscellaneous Notes * Telephone Encounter - Theresa Rich RN - 06/18/2023 4:50 PM EST Returned patients call, she left a VM on the nurse line that her medication was not received yet. I let her know her know that her Gemtesa was approved and it may take a few days. * Telephone Encounter - Brina Dao OSA - 06/14/2023 11:48 AM EST Women's Medicine Pre-Cert Request Medication/Disease State Information: Medication: Gemtesa 75mg Diagnosis (including ICD-10): N39.46 Mixed incontinence urge and stress, N95.2 Atrophic vaginitis, N81.12 Uterovaginal prolapse, incomplete Medication(s) Tried/Failed/Contraindicated: Oxybutynin 10mg, Vesicare 10 mg See corresponding visit note(s) for additional supporting clinical information. Office Information: Prescriber: Vj Mao MD documented in this encounter Plan of Treatment Upcoming Encounters Date Type Department Care Team (Late st Contact Info) Description 07/05/2023 9:45 AM EST Office Visit Urogynecology [facility] [address] [place] [address] Yahaira Reed PA-C [address] [place] [address] Nurse Ursula [place] [address] [place] [address] 09/12/2023 4:20 PM EST Office Visit General Internal Medicine [facility] [address] [facility] [place] [address] Jomar Thompson MD [address] [facility] [place] [address] 10/29/2023 8:00 AM EDT Office Visit Cardiology, [place] [facility] [address] [place] [address] Pepe Mckeon DO [address] [place] [address] Health Maintenance Due Date Last Done Comments [...] this encounter Medical Devices Implanted Type Area Planing Machine Operator Device Identifier Shelf Expiration Date Model / Serial / Lot Lens Intraoc 15.5 - [id number] - [id number] Implanted:Qty: 1 on 06/18/2018 by Pratik Zazueta MD at OR [facility] Right: Eye BAUSCH [employer] LOMB 11/26/2021 [id number] / [id number] / [id number] Lens Intraoc 17.0 - [id number] - [id number] Implanted:Qty: 1 on 06/24/2018 by Pratik Zazueta MD at OR [facility] Left: Eye BAUSCH & LOMB 01/26/2023 [id number] / [id number] / [id number] documented as of this encounter Care Teams Crossing Watchman Relationship Specialty Start Date End Date Jomar Thompson MD [address] [facility] [place] [address] PCP - General Internal Medicine 05/27/21 documented as of this encounter
--- OUTSIDE RECORDS SUMMARY | 2023-07-20 17:18 | External Medical Summary | Summary of Care ---
Author Name Unknown Organization [facility] Address [address] [place] [address] Phone [phone] Care Team Providers Care Edge Inker Name Role Phone Jomar Thompson MD Primary Care Provider + Reason for Visit * Reason Onset Date Comments Medication Administration 06/08/2023 Encounter Details Date Type Department Care Team (Late st Contact Info) Description 06/08/2023 Telephone Urogynecology [facility] [address] [place] [address] Vj Mao MD [address] [place] [address] Medication Administration Allergies No known active allergiesdocumented as of this encounter (statuses as of 06/08/2023) Medications Medication Sig Dispensed Refills Start Date [...] Until gone.. 14 Capsule 0 06/08/2023 06/15/2023 Active documented as of this encounter (statuses as of 06/08/2023) Active Problems Problem Noted Date Diagnosed Date [...] as of this encounter (statuses as of 06/08/2023) Resolved Problems Problem Noted Date Diagnosed Date [...] as of this encounter (statuses as of 06/08/2023) Immunizations Name Administration Dates Next Due COVID-19 [...] encounter Miscellaneous Notes * Telephone Encounter - Sarai Alexander LPN - 06/08/2023 12:32 PM EST Patient contacted and made aware of provider message - denies fever / severe dysuria and verbalizedunderstanding. * Telephone Encounter - Sarai Alexander LPN - 06/08/2023 10:41 AM EST Call placed to patient to make aware of +UTI and abx sent to pharmacy - instructions discussed. Patient states she is out of town and will not be able to get it until Sunday. Asked if there is a local pharmacy where she is that she would like it sent to. Patient would like to ask provider if that is necessary or if she can wait until Sunday. Routed to provider. documented in this encounter Plan of Treatment Upcoming Encounters Date Type Department Care Team (Late st Contact Info) Description 07/05/2023 9:45 AM EST Office Visit Urogynecology [facility] [address] [place] [address] Yahaira Reed PA-C [address] [place] [address] Nurse Ursula Jensen [address] [place] [address] 09/12/2023 4:20 PM EST Office Visit General Internal Medicine [facility] [address] [facility] [place] [address] Jomar Thompson MD 200 [place] [address] 10/29/2023 8:00 AM EDT Office Visit Cardiology, [facility] [address] [place] [address] Pepe Mckeon DO [address] [place] [address] Health Maintenance Due Date Last Done Comments [...] this encounter Medical Devices Implanted Type Area Drop Man Device Identifier Shelf Expiration Date Model / Serial / Lot Lens Intraoc 15.5 - [id number] - [id number] Implanted:Qty: 1 on 06/18/2018 by Pratik Zazueta MD at OR [facility] Right: Eye BAUSCH [employer] LOMB 11/26/2021 [id number] / [id number] / [id number] Lens Intraoc 17.0 - [id number] - [id number] Implanted:Qty: 1 on 06/24/2018 by Pratik Zazueta MD at OR [facility] Left: Eye BAUSCH & LOMB 01/26/2023 [id number] / [id number] / [id number] documented as of this encounter Care Teams Edge Inker Relationship Specialty Start Date End Date Jomar Thompson MD [address] [facility] [place] [place] [address] PCP - General Internal Medicine 05/27/21 documented as of this encounter
--- OUTSIDE RECORDS SUMMARY | 2023-07-20 17:18 | External Medical Summary | Summary of Care ---
Author Name Unknown Organization [facility] Address [address] [place] [address] Phone [phone] Care Team Providers Care Liquid Waste Treatment Plant Operator Name Role Phone Jomar Thompson MD Primary Care Provider + Reason for Visit * Reason Comments Consultation * Evaluate & Treat - Unlimited Visits (Within 30 days (routine)) - Authorized Specialty Diagnoses / Procedures Referred By Bryn sneed Referred To Contact SHEET PILE HAMMER OPERATOR - Urogynecology / Gynecology Urology Diagnoses Urge incontinence of urine Pelvic pressure in female Jomar Thompson MD [address] [place] [address] Referral ID Status Reason Start Date Expiration Date Visits Requested Visits Authorized [id number] Authorized Specialty Services Required 3 [phone] Encounter Details Date Type Department Care Team (Late st Contact Info) Description 06/06/2023 10:25 AM EST Office Visit [facility]rogynecologshanae [facility] [address] [place] [address] Vj Mao MD [address] [place] [address] Nurse Ursula [place] [address] [place] [address] Uterovaginal prolapse, incomplete*; Atrophic vaginitis; Mixed incontinence [...] BILATERAL 03/14/2011 birad 2, repeat in 12mths [place] OPEN REPAIR OF ROTATOR CUFF ACUTE Right 05/22/2022 REMOVAL OF OVARY(S) 1972 cyst on ovary REMOVE CATARACT, INSERT LENS PROSTH Right 06/18/2018 right EXTRACAPSULAR CATARACT REMOVAL WITH INTRAOCULAR LENS performed by Pratik Zazueta MD at OR [facility] REMOVE CATARACT, INSERT LENS PROSTH Left 06/24/2018 left EXTRACAPSULAR CATARACT REMOVAL WITH INTRAOCULAR LENS performed by Pratik Zazueta MD at OR [facility] WRIST ARTHROSCOPY, DIAGNOSTIC 2018 OB History 4 [...] PSYCHIATRIC ROS: no depression and no anxiety Construction Specialist Documentation: Provider requested merchandise associate Name of Construction Specialist: Sangita Siu Blood pressure 138/78, weight 71 [...] size. No adnexal masses or tenderness elicited. VP GENETIC: positive Levator ani muscle strength 3. No [...] : 1950 Surgery Date: next Physician: [employer] General Manager Needed: Yes Location: [facility] Admission Type: 23 Hour Observation Anesthesia: General [...] Restrictions/Time Off: 6 weeks Procedures (CPT code): 00470 - Mid urethral sling (polypropylene mesh) 38999 - Combined anterior/posterior colporrhaphy 19261 - Total vaginal hysterectomy with bilateral salpingo-oophorectomy (TVH/BSO) 03988 - Uterosacral vaginal vault suspension (VVS) Diagnoses [...] 07/05/2023 9:45 AM EST Office Visit Urogynecology [facility] [address] [place] [address] Yahaira Reed PA-C [address] [place] [address] Nurse Ursula Jensen [address] [place] [address] 09/12/2023 4:20 PM EST Office Visit General Internal Medicine [facility] [address] [facility] [place] [address] Jomar Thompson MD [address] [facility] [place] [address] 10/29/2023 8:00 AM EDT Office Visit Cardiology, [place] [facility] [address] [place] [address] Pepe Mckeon DO [address] [place] [address] Scheduled Orders Name Type Priority Associated Diagnoses [...] this encounter Medical Devices Implanted Type Area Fha Underwriter Device Identifier Shelf Expiration Date Model / Serial / Lot Lens Intraoc 15.5 - [id number] - [id number] Implanted:Qty: 1 on 06/18/2018 by Pratik Zazueta MD at OR [facility] Right: Eye BAUSCH [employer] LOMB 11/26/2021 [id number] / [id number] / [id number] Lens Intraoc 17.0 - [id number] - [id number] Implanted:Qty: 1 on 06/24/2018 by Pratik Zazueta MD at OR [facility] Left: Eye BAUSCH & LOMB 01/26/2023 [id number] / [id number] / [id number] documented as of this encounter Visit Diagnoses Diagnosis Uterovaginal prolapse, incomplete- Primary Atrophic vaginitis Postmenopausal atrophic vaginitis Mixed incontinence urge and stress Mixed incontinence urge and stress (male)(female) documented in this encounter Care Teams Liquid Waste Treatment Plant Operator Relationship Specialty Start Date End Date Jomar Thompson MD [address] [place] [address] PCP - General Internal Medicine 05/27/21 documented as of this encounter"
--- OUTSIDE RECORDS SUMMARY | 2023-07-20 17:18 | External Medical Summary | Summary of Care ---
Author Name Unknown Organization [facility] Address [address] [place] [address] Phone [phone] Care Team Providers Care Flat Clothier Name Role Phone Jomar Thompson MD Primary Care Provider + Reason for Visit * Reason Onset Date Comments Health Maintenance 03/13/2023 Encounter Details Date Type Department Care Team Description 03/13/2023 Telephone General Internal Medicine [facility] [address] [place] [address] Jomar Thompson MD [address] [place] [address] Health Maintenance Allergies No known active allergiesdocumented as of this encounter (statuses as of 03/13/2023) Medications Medication Sig Dispensed Refills Start Date End Date Status FISH OIL 1000 MG PO CAPS 2 tabs daily 0 Active CALCIUM 600 + D 600-200 MG-UNIT PO TABS 1 daily 0 07/08/2008 Active MAG-OX 400 400 MG PO TABSIndications:Atr ial premature beats one tablet daily 90 3 12/01/2008 Active ASPIRIN 81 MG PO CHEW One pill by mouth once a day with food 0 07/17/2013 Active MULTIVITAMINS PO CAPS 2 capsules daily 0 10/30/2013 Active furosemide (LASIX) 20 MG TabletIndications:I schemic heart disease Take 1 Tab by mouth daily. 90 Tab 3 12/24/2019 Active Additional Information Patient taking differently:20 mg OralDAILY PRN, Reported on 08/18/2022 Apple Cider Vinegar Plus Oral Tablet Take by mouth. 0 Acti ve Metoprolol Succinate ER 25 MG Oral Tablet Extended Release 24 Hour (toPROL XL)Indications:Isch emic heart disease,Dyslipidemi a, goal LDL below 70,PVC (premature ventricular contraction) TAKE ONE-HALF (1/2) TABLET DAILY 90 Tablet 3 04/04/2022 Active Omeprazole 20 MG Oral Capsule Delayed Release (PriLOSEC) Take by mouth 1 Capsule in the morning. 1 hour before the first meal of the day.. 90 Capsule 3 04/04/2022 Active Tolterodine Tartrate ER 4 MG Oral Capsule Extended Release 24 Hour (Detrol LA)Indications:Fema le stress incontinence Take 1 Capsule by mouth in the morning. 90 Capsule 3 10/06/2022 Active Atorvastatin Calcium 40 MG Oral Tablet (Lipitor) Take 1 Tablet by mouth in the morning. 90 Tablet 2 01/11/2023 Active Sertraline HCl 50 MG Oral Tablet (Zoloft)Indications :Current moderate episode of major depressive disorder without prior episode (HCC) Take 1 Tablet by mouth in the morning. 90 Tablet 1 02/20/2023 Active LORazepam 1 MG Oral Tablet (Ativan)Indications :Anxiety state One pill by mouth 3 times a day as needed for anxiety 30 Tablet 1 02/21/2023 Active documented as of this encounter (statuses as of 03/13/2023) Active Problems Problem Noted Date Mild mitral [...] as of this encounter (statuses as of 03/13/2023) Resolved Problems Problem Noted Date Resolved Date Advanced directives, counseling/discussion 11/1508/01/2021 Overview: Scanned 2005 Dyslipidemia, goal LDL below 130 07/18/2013 05/25/2014 Abnormal ECG 07/18/2013 01/05/2020 Dyslipidemia, goal LDL below 160 10/11/2010 07/18/2013 Dyslipidemia, goal to be determined 07/13/2009 10/11/2010 Overview: Per Lipid Taxonomy. Dyslipidemia, goal LDL below 160 07/08/2008 07/13/2009 Overview: Per Lipid Taxonomy. Osteoporosis 07/08/2008 01/04/2017 documented as of this encounter (statuses as of 03/13/2023) Immunizations Name Administration Dates Next Due COVID-19 mRNA, LNP-s, No Pre serve, 2-Dose Series (Samplesaint) 03/31/2021,09/25/2020,09/04/2020 H1N1 2009 Influenza, IM 06/28/2009 Pneumococcal Conjugate Vacc, 13 Valent (Prevnar) 05/22/2016 Pneumococcal Polysaccharide PPV23 (Pneumovax) 12/29/2013 Seasonal Influenza, Quadriva lent, No Preserve, 6 Mons & Above, IM 04/05/2017 Seasonal Influenza, Quadriva lent, No Preserve, Adjuvanted, 65+ Yrs, IM 03/22/2021,03/22/2020 Seasonal Influenza, Split, I IV3, With [...] encounter Miscellaneous Notes * Telephone Encounter - Bernadine Saunders LPN - 03/13/2023 2:14 PM EDT Care Gaps Comprehensive Care Outreach Last Office/Telemedicine Visit: 02/20/2023 (in office), Visit date not found (telemedicine) Next Office Visit: 09/12/2023 Hemoglobin AIC Results: Lab Results Component Value Date/Time HEMOGLOBIN A1C - [facility] 5.5 11/03/2008 02:19 PM Reviewed Health Maintenance below: Health Maintenance Topic Date Due Colorectal Cancer Screening 04/13/2018 Mammogram 06/17/2019 COVID-19 Vaccine (4 - Pfizer series) 05/26/2021 Influenza Vaccine (FLU shot) (1) 03/30/2023 Colon mamm awv Care Gap Outreach Action Taken: Unable to reach and Myportal message sent documented in this encounter Plan of Treatment Upcoming Encounters Date Type Specialty Care Team Description 09/12/2023 Office Visit Internal Medicine [facility]omar Thompson MD [address] [facility] [address] 10/29/2023 Office Visit Cardiology Pepe Mckeon DO [address] [place] [address] Health Maintenance Due Date Last Done Comments Cologuard 1993 Fecal Occult Blood Test 1993 Sigmoidoscopy 1993 Colonoscopy 04/13/2018 04/13/2008 Colorectal Cancer Screening 04/13/2018 Mammogram 06/17/2019 06/17/2018, 05/01, 05/26/2016, Additional history exists COVID-19 Vaccine (4 - Pfizer series) 05/26/2021 03/31/2021, 09/25/2020, 09/04/2020 Influenza Vaccine (FLU shot) (#1) 2023 05/03/2022, 03/22/2021, 03/22/2020, Additional history exists Depression Screening, Annual for Pts 12 and Over 08/18/2023 08/18/2022 DXA Scan 09/04/2026 09/04/2022, 11/28, [...] this encounter Medical Devices Implanted Type Area Manager Subway Device Identifier Shelf Expiration Date Model / Serial / Lot Lens Intraoc 15.5 - [id number] - [id number] Implanted:Qty: 1 on 06/18/2018 by Pratik Zazueta MD at OR [facility] Right: Eye BAUSCH & LOMB 11/26/2021 [id number] / [id number] / [id number] Lens Intraoc 17.0 - [id number] - [id number] Implanted:Qty: 1 on 06/24/2018 by Pratik Zazueta MD at OR [facility] Left: Eye BAUSCH & LOMB 01/26/2023 [id number] / [id number] / [id number] documented as of this encounter Care Teams Flat Clothier Relationship Specialty Start Date End Date Jomar Thompson MD [address] [place] [address], [place] [id number] PCP - General Internal Medicine 05/27/21 documented as of this encounter
--- OUTSIDE RECORDS SUMMARY | 2023-07-20 17:18 | External Medical Summary | Summary of Care ---
Author Name Unknown Organization [facility] Address [address] [place] [address] Phone [phone] Care Team Providers Care Store Sales Consultant Name Role Phone Jomar Thompson MD Primary Care Provider + Reason for Visit * Reason Comments Consultation * Evaluate & Treat - Unlimited Visits (Within 30 days (routine)) - Authorized Specialty Diagnoses / Procedures Referred By Bryn sneed Referred To Contact MANUAL WRITER - Urogynecology / Gynecology Urology Diagnoses Urge incontinence of urine Pelvic pressure in female Jomar Thompson MD [address] [place] [address] Referral ID Status Reason Start Date Expiration Date Visits Requested Visits Authorized [id number] Authorized Specialty Services Required [phone] Encounter Details Date Type Department Care Team (Late st Contact Info) Description 06/06/2023 10:25 AM EST Office Visit Urogynecologshanae Jensen [address] [place] [address] Vj Mao MD [address] [place] [phone] Nurse Ursula Jensen [address] [place] [address] Uterovaginal prolapse, incomplete*; Atrophic vaginitis; Mixed incontinence [...] BILATERAL 03/14/2011 birad 2, repeat in 12mths [place] OPEN REPAIR OF ROTATOR CUFF ACUTE Right 05/22/2022 REMOVAL OF OVARY(S) 1972 cyst on ovary REMOVE CATARACT, INSERT LENS PROSTH Right 06/18/2018 right EXTRACAPSULAR CATARACT REMOVAL WITH INTRAOCULAR LENS performed by Pratik Zazueta MD at [facility] REMOVE CATARACT, INSERT LENS PROSTH Left 06/24/2018 left EXTRACAPSULAR CATARACT REMOVAL WITH INTRAOCULAR LENS performed by Pratik Zazueta MD at OR [facility] WRIST ARTHROSCOPY, DIAGNOSTIC 2018 OB History 4 [...] PSYCHIATRIC ROS: no depression and no anxiety Ticket Collector Or Usher Documentation: Provider requested escrow officer Name of Ticket Collector Or Usher: Sangita Siu Blood pressure 138/78, weight 71 [...] size. No adnexal masses or tenderness elicited. 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 No [...] : 1950 Surgery Date: next Physician: [facility] Comptometrist Needed: Yes Location: [facility] Admission Type: 23 Hour Observation Anesthesia: General [...] Restrictions/Time Off: 6 weeks Procedures (CPT code): 09463 - Mid urethral sling (polypropylene mesh) 57003 - Combined anterior/posterior colporrhaphy 99857 - Total vaginal hysterectomy with bilateral salpingo-oophorectomy (TVH/BSO) 42912 - Uterosacral vaginal vault suspension (VVS) Diagnoses [...] 07/05/2023 9:45 AM EST Office Visit Urogynecology [facility] [address] [place] [address] Yahaira Reed PA-C [address] [place] [address] Nurse Ursula Jensen [address] [place] [address] 09/12/2023 4:20 PM EST Office Visit General Internal Medicine [facility] [address] [facility] [place] [address] Jomar Thompson MD [address] [facility] [place] [address] 10/29/2023 8:00 AM EDT Office Visit Cardiology, [place] [facility] [address] [place] [address] Pepe Mckeon DO [address] [place] [address] Pending Results Name Type Priority Associated Diagnoses Date /Time URINALYSIS OBSTETRICS, POINT OF CARE (ENTER/EDIT) Point of Care Testing Routine Uterovaginal prolapse, incomplete Atrophic vaginitis Mixed incontinence urge and stress 06/06/2023 Scheduled Orders Name Type Priority Associated Diagnoses Orde r Schedule CULTURE, URINE, QUANTITATIVE Lab Routine Uterovaginal prolapse, [...] this encounter Medical Devices Implanted Type Area Plate Preparer Device Identifier Shelf Expiration Date Model / Serial / Lot Lens Intraoc 15.5 - [id number] - [id number] Implanted:Qty: 1 on 06/18/2018 by Pratik Zazueta MD at OR [facility] Right: Eye BAUSCH & LOMB 11/26/2021 [id number] / [id number] / [id number] Lens Intraoc 17.0 - [id number] - [id number] Implanted:Qty: 1 on 06/24/2018 by Pratik Zazueta MD at OR [facility] Left: Eye BAUSCH & LOMB 01/26/2023 [id number] / [id number] / [id number] documented as of this encounter Visit Diagnoses Diagnosis Uterovaginal prolapse, incomplete- Primary Atrophic vaginitis Postmenopausal atrophic vaginitis Mixed incontinence urge and stress Mixed incontinence urge and stress (male)(female) documented in this encounter Care Teams Store Sales Consultant Relationship Specialty Start Date End Date Jomar Thompson MD 200 [facility], [place] [id number] PCP - General Internal Medicine 05/27/21 documented as of this encounter"
--- OUTSIDE RECORDS SUMMARY | 2023-07-20 17:18 | External Medical Summary | Summary of Care ---
Author Name Unknown Organization [facility] Address [address] [place] [address] Phone [phone] Care Team Providers Care Hash Slinger Name Role Phone Jomar Thompson MD Primary Care Provider + Reason for Visit * Reason Comments Outpatient Testing Encounter Details Date Type Department Care Team Description 02/22/2023 Laboratory Laboratory, [facility] [address] [place] [address] [facility] [address] [place] [address] [employer] Other*[id number]; Dyslipidemia, goal LDL below 70; Current moderate episode of major depressive disorder without prior episode (HCC); Encounter for long-term (current) use of medications Allergies No known active allergiesdocumented as of this encounter (statuses as of 02/22/2023) Medications Medication Sig Dispensed Refills Start Date [...] as of this encounter (statuses as of 02/22/2023) Active Problems Problem Noted Date Mild mitral [...] as of this encounter (statuses as of 02/22/2023) Resolved Problems Problem Noted Date Resolved Date [...] as of this encounter (statuses as of 02/22/2023) Immunizations Name Administration Dates Next Due COVID-19 mRNA, LNP-s, No Pre serve, 2-Dose Series (7Road) 03/31/2021,09/25/2020,09/04/2020 H1N1 2009 Influenza, IM 06/28/2009 Pneumococcal [...] Visit Internal Medicine [facility] [address] [facility]/29/2023 Office Visit Cardiology Pepe Mckeon DO [address] [place] [address] Pending Results Name Type Priority Associated Diagnoses Date /Time MYCODE SUBSEQUENT ADULT Lab Routine MyCode Research Other*[id number] 02/22/2023 7:20 AM EDT COMPREHENSIVE METABOLIC PANEL Lab Routine Dyslipidemia, goal LDL below 70 02/22/2023 7:20 AM EDT LIPID PANEL WITH DIRECT LDL IF TG IS HIGH Lab Routine Dyslipidemia, goal LDL below 70 02/22/2023 7:20 AM EDT CBC WITH WBC DIFFERENTIAL Lab Routine Current moderate episode of major depressive disorder without prior episode (HCC) 02/22/2023 7:20 AM EDT TSH Lab Routine Current moderate episode of major depressive disorder without prior episode (HCC) 02/22/2023 7:20 AM EDT VITAMIN B12 Lab Routine Encounter for long-term (current) use of medications 02/22/2023 7:20 AM EDT MAGNESIUM Lab Routine Encounter for long-term (current) use of medications 02/22/2023 7:20 AM EDT MYCODE SST1 Lab Routine My[employer] Other*[id number] 02/22/2023 7:20 AM EDT MYCODE SST2 Lab Routine [employer] Other*[id number] 02/22/2023 7:20 AM EDT CBC Lab Routine Current moderate episode of major depressive disorder without prior episode (HCC) 02/22/2023 7:20 AM EDT DIFFERENTIAL, AUTOMATED Lab Routine Current moderate episode of major depressive disorder without prior episode (HCC) 02/22/2023 7:20 AM EDT Health Maintenance Due Date Last Done Comments [...] this encounter Medical Devices Implanted Type Area Orthophoto Tech/Draftsman Device Identifier Shelf Expiration Date Model / Serial / Lot Lens Intraoc 15.5 - [id number] - [id number] Implanted:Qty: 1 on 06/18/2018 by Pratik Zazueta MD at OR [facility] Right: Eye BAUSCH & LOMB 11/26/2021 [id number] / [id number] / [id number] Lens Intraoc 17.0 - [id number] - [id number] Implanted:Qty: 1 on 06/24/2018 by Pratik Zazueta MD at OR [facility] Left: Eye BAUSCH & LOMB 01/26/2023 [id number] / [id number] / [id number] documented as of this encounter Visit Diagnoses Diagnosis [employer] Other*[id number] Dyslipidemia, goal LDL below 70 Other and unspecified hyperlipidemia Current moderate episode of major depressive disorder without prior episode (HCC) Encounter for long-term (current) use of medications Encounter for long-term (current) use of other medications documented in this encounter Care Teams Hash Slinger Relationship Specialty Start Date End Date Jomar Thompson MD [address] [facility] [place] [address] PCP - General Internal Medicine 05/27/21 documented as of this encounter
--- OUTSIDE RECORDS SUMMARY | 2023-07-20 17:18 | External Medical Summary | Summary of Care ---
Author Name Unknown Organization [facility] Address [address] [place] [address] Phone [phone] Care Team Providers Care Liquid Sugar Fortifier Name Role Phone Jomar Thompson MD Primary Care Provider + Reason for Visit * Reason Comments Consultation * Evaluate & Treat - Unlimited Visits (Within 30 days (routine)) - Authorized Specialty Diagnoses / Procedures Referred By Bryn sneed Referred To Contact DIRECTOR AERONAUTICS COMMISSION - Urogynecology / Gynecology Urology Diagnoses Urge incontinence of urine Pelvic pressure in female Jomar Thompson MD [address] [place] [address] Referral ID Status Reason Start Date Expiration Date Visits Requested Visits Authorized [id number] Authorized Specialty Services Required [phone] Encounter Details Date Type Department Care Team (Late st Contact Info) Description 06/06/2023 10:25 AM EST Office Visit Urogynecologshanae Jensen [address] [place] [address] Vj Mao MD [address] [place] [address] Nurse Ursula Jensen [address] [place] [address] Uterovaginal prolapse, incomplete*; Atrophic vaginitis; Mixed incontinence [...] morning. 90 Tablet 3 06/06/2023 4 Active Cephalexin 500 MG Oral Capsule (Keflex) Take 1 Capsule by mouth in the morning and 1 Capsule before bedtime. Do all this for 7 days. Until gone.. 14 Capsule 0 06/08/2023 3 Active Tolterodine Tartrate ER 4 MG Oral [...] mRNA, LNP-s, No Pre serve, 2-Dose Series ([email or web address]) 03/31/2021,09/25/2020,09/04/2020 H1N1 2009 Influenza, IM 06/28/2009 Pneumococcal [...] SCREENING BILATERAL 03/14/2011 birad 2, repeat in [place] OPEN REPAIR OF ROTATOR CUFF ACUTE Right 05/22/2022 REMOVAL OF OVARY(S) 1972 cyst on ovary REMOVE CATARACT, INSERT LENS PROSTH Right 06/18/2018 right EXTRACAPSULAR CATARACT REMOVAL WITH INTRAOCULAR LENS performed by Pratik Zazueta MD at OR [facility] REMOVE CATARACT, INSERT LENS PROSTH Left 06/24/2018 left EXTRACAPSULAR CATARACT REMOVAL WITH INTRAOCULAR LENS performed by Pratik Zazueta MD at [facility] WRIST ARTHROSCOPY, DIAGNOSTIC 2019 OB History 4 Para 3 Term 3 [...] PSYCHIATRIC ROS: no depression and no anxiety Setter Molding And Coremaking Machines Documentation: Provider requested nursing care attendant Name of Setter Molding And Coremaking Machines: Sangita Siu Blood pressure 138/78, weight 71 [...] size. No adnexal masses or tenderness elicited. 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 No [...] : 1950 Surgery Date: next Physician: [facility] Representative Needed: Yes Location: [facility] Admission Type: 23 Hour Observation Anesthesia: General [...] Restrictions/Time Off: 6 weeks Procedures (CPT code): 69160 - Mid urethral sling (polypropylene mesh) 24607 - Combined anterior/posterior colporrhaphy 07433 - Total vaginal hysterectomy with bilateral salpingo-oophorectomy (TVH/BSO) 11611 - Uterosacral vaginal vault suspension (VVS) Diagnoses [...] well for her. documented in this encounter Miscellaneous Notes * Addendum Note - Vj Mao MD - 06/08/2023 9:38 AM ESTAddended by: VJ MAO on: 06/08/2023 09:38 AM Modules accepted: Orders documented in this encounter Plan of Treatment Upcoming Encounters Date Type Department Care Team (Late st Contact Info) Description 07/05/2023 9:45 AM EST Office Visit Urogynecology [facility] [address] [place] [address] Yahaira Reed PA-C [address] [place] [address] Nurse Ursula Jensen [facility] [address] [place] [address] 09/12/2023 4:20 PM EST Office Visit General Internal Medicine [facility] [address] [facility] [place] [address] Jomar Thompson MD [address] [facility] [place] [address] 10/29/2023 8:00 AM EDT Office Visit Cardiology, [facility] [address] [place] [address] Pepe Mckeon DO [address] [place] [address] Pending Results Name Type Priority Associated Diagnoses Date /Time URINALYSIS OBSTETRICS, POINT OF CARE (ENTER/EDIT) Point of Care Testing Routine Uterovaginal prolapse, incomplete Atrophic vaginitis Mixed incontinence urge and stress 06/06/2023 Scheduled Orders Name Type Priority Associated Diagnoses Orde r Schedule CBC Lab Routine Uterovaginal prolapse, incomplete Atrophic [...] this encounter Medical Devices Implanted Type Area Electrical Assemblies Supervisor Device Identifier Shelf Expiration Date Model / Serial / Lot Lens Intraoc 15.5 - [id number] - [id number] Implanted:Qty: 1 on 06/18/2018 by Pratik Zazueta MD at OR [facility] Right: Eye BAUSCH & LOMB 11/26/2021 [id number] / [id number] / [id number] Lens Intraoc 17.0 - [id number] - [id number] Implanted:Qty: 1 on 06/24/2018 by Pratik Zazueta MD at OR [facility] Left: Eye BAUSCH & LOMB 01/26/2023 [id number] / [id number] / [id number] documented as of this encounter Procedures Procedure Name Priority Date/Time Associated Diagnosis Comments CULTURE, URINE, QUANTITATIVE Routine 06/06/2023 11:50 AM EST Uterovaginal prolapse, incomplete Atrophic vaginitis Mixed incontinence urge and stress documented in this encounter Results * (ABNORMAL) CULTURE, URINE, QUANTITATIVE (06/06/2023 11:50 AM EST) Culture Growth >100,000 colonies/mL Escherichia coli(A) MICROBROTH DILUTIONS 06/08/2023 8:09 AM EST [facility] Urine Urine specimen obtained by clean catch procedure / Unknown Non-blood Collection / Unknown 06/06/2023 11:50 AM EST 06/06/2023 1:46 PM EST Narrative Organism Antibiotic Method Susceptibility Escherichia coli Ampicillin MICROBROTH DILUTIONS >=32: Resistant Escherichia coli Ampicillin/Sulbactam MICROBROTH DILUT IONS 16: Intermediate Escherichia coli Cefazolin MICROBROTH DILUTIONS <=4: Susceptible Escherichia coli Cefepime MICROBROTH DILUTIONS <=1: Susceptible Escherichia coli Ceftriaxone MICROBROTH DILUTIONS <=1: Susceptible Escherichia coli Ciprofloxacin MICROBROTH DILUTIONS <=0.25: Susceptible Comment:Due to david us side effects, the FDA has advised against using Ciprofloxacin to treat uncomplicated UTIs and respiratory tract infections unless there are no alternative treatment options. Escherichia coli Gentamicin MICROBROTH DILUTIONS <=1: Susceptible Escherichia coli Nitrofurantoin MICROBROTH DILUTIONS <=16: Susceptible Escherichia coli Piperacillin Tazobactam MICROBROTH DI LUTIONS <=4: Susceptible Escherichia coli Trimeth/Sulfamethoxazole MICROBROTH D ILUTIONS <=20: Susceptible Vj Mao MD LAB MICRO - GENERAL ORDERABLES [facility] [address] [place] [address] documented in this encounter Visit Diagnoses Diagnosis Uterovaginal prolapse, incomplete- Primary Atrophic vaginitis Postmenopausal atrophic vaginitis Mixed incontinence urge and stress Mixed incontinence urge and stress (male)(female) documented in this encounter Care Teams Liquid Sugar Fortifier Relationship Specialty Start Date End Date Jomar Thompson MD [address] [place] [address] PCP - General Internal Medicine 05/27/21 documented as of this encounter"
--- OUTSIDE RECORDS SUMMARY | 2023-07-20 17:18 | External Medical Summary | Summary of Care ---
Author Name Unknown Organization [facility] Address [address] [place] [address] Phone [phone] Care Team Providers Care Capacitor Assembler Name Role Phone Jomar Garcia MD Primary Care Provider + Reason for Visit * Reason Onset Date Comments Medication Refill 05/09/2023 Encounter Details Date Type Department Care Team Description 05/09/2023 Refill General Internal Medicine [facility] [address] [place] [address] Jomar Garcia MD [address] [place] [address] Allergies No known active allergiesdocumented as of this encounter (statuses as of 05/10/2023) Medications Medication Sig Dispensed Refills Start Date [...] Oral Tablet Take by mouth. 0 Active Tolterodine Tartrate ER 4 MG Oral [...] the day.. 90 Capsule 3 05/10/2023 Active Omeprazole 20 MG Oral Capsule Delayed Release (PriLOSEC) Take by mouth 1 Capsule in the morning. 1 hour before the first meal of the day.. 90 Capsule 3 04/04/2022 3 Discontinue d(Refill) documented as of this encounter (statuses as of 05/10/2023) Active Problems Problem Noted Date Mild mitral [...] as of this encounter (statuses as of 05/10/2023) Resolved Problems Problem Noted Date Resolved Date [...] as of this encounter (statuses as of 05/10/2023) Immunizations Name Administration Dates Next Due COVID-19 [...] encounter Miscellaneous Notes * Telephone Encounter - Heather Pastrana RPh - 05/10/2023 4:07 PM EDTSigned Prescriptions: Disp Refills Omeprazole 20 MG Oral Capsule Delayed Rele*90 Cap*3 Sig: Take 1 Capsule by mouth in the morning. 1 hour before the first meal of the day..Authorizing Provider: JOMAR GARCIA User: HEATHER PASTRANA documented in this encounter Plan of Treatment Upcoming Encounters Date Type Specialty Care Team Description 09/12/2023 Office Visit Internal Medicine Jomar Garcia MD [address] [place] [address] 10/29/2023 Office Visit Cardiology Pepe Mckeon DO [address] [place] [address] Health Maintenance Due Date Last Done Comments [...] this encounter Medical Devices Implanted Type Area Seismograph Supervisor Device Identifier Shelf Expiration Date Model / Serial / Lot Lens Intraoc 15.5 - [id number] - [id number] Implanted:Qty: 1 on 06/18/2018 by Pratik Zazueta MD at OR [facility] Right: Eye [employer] 11/26/2021 [id number] / [id number] / [id number] Lens Intraoc 17.0 - [id number] - [id number] Implanted:Qty: 1 on 06/24/2018 by Pratik Zazueta MD at OR [facility] Left: Eye [employer] 01/26/2023 [id number] / [id number] / [id number] documented as of this encounter Care Teams Capacitor Assembler Relationship Specialty Start Date End Date Jomar Garcia MD [address] [place] [address], [place] [id number] PCP - General Internal Medicine 05/27/21 documented as of this encounter
--- OUTSIDE RECORDS SUMMARY | 2023-07-20 17:18 | External Medical Summary ---
Author Name Unknown Address Unknown Organization [id number]:[facility] [place] [address] [facility] [address] Laboratory Report Ordering Provider Test Date Status ИРИНА MOSCOSO 06/06/2023 11:50:44 Final Observation Date Value Abnormality Reference (Units ) Status Bacteria identified in Specimen by Culture 06/06/2023 11:50:44 [id number]^ESCHE RICHIA COLI Abnormal Final >100,000 colonies/mL Escheri raul coli Performing Location [facility] [place] [address] [facility] [address] Ordering Provider Test Date Status ИРИНА MOSCOSO 06/06/2023 11:50:44 Final Observation Date Value Abnormality Reference (Units ) Status Ampicillin 06/06/2023 11:50:44 >=32 Resistant Final Ampicillin + Sulbactam 06/06/2023 11:50:44 16 Intermediate Final Cefazolin 06/06/2023 11:50:44 <=4 Susceptible Final Cefepime susceptibility 06/06/2023 11:50:44 <=1 Susceptible Final Ceftriaxone suceptibility 06/06/2023 11:50:44 <=1 Susceptible Final Ciprofloxacin 06/06/2023 11:50:44 <=0.25 Susceptible Final Due to serious side effects, the FDA has advised against using Ciprofloxacin to treat uncomplicated UTIs and respiratory tract infections unless there are no alternative treatment options. Gentamicin susceptibility 06/06/2023 11:50:44 <=1 Susc eptible Final Nitrofurantoin susceptibility 06/06/2023 11:50:44 <=16 Susceptible Final Piperacillin + Tazobactamsusceptibility 06/06/2023 11:50:44 <=4 Susceptible Final TMP-SMZ susceptibility 06/06/2023 11:50:44 <=20 Suscept ible Final Test: Culture, Urine, Quanti tative
Specimen Source: Urine, Clean Catch
Specimen Type: Urine
Specimen Date: 06/06/2023 11:50 AM
Result Date: 06/08/2023 8:09 AM
Result Status: Final result
Abnormal: Yes
Resulting Lab: [facility]
[address]
[place] [address]

CULTURE

>100,000 colonies/mL Escherichia coli (Abnormal)

SUSCEPTIBILITY

Escherichia coli
METHOD MICROBROTH DILUTIONS

AMPICILLIN >=32 Resistant
AMPICILLIN/SULBACTAM 16 Intermediate
CEFAZOLIN <=4 Susceptible
CEFEPIME <=1 Susceptible
CEFTRIAXONE <=1 Susceptible
CIPROFLOXACIN <=0.25 Susceptible [1]
GENTAMICIN <=1 Susceptible
NITROFURANTOIN <=16 Susceptible
PIPERACILLIN TAZOBACTAM <=4 Susceptible
TRIMETH/SULFAMETHOXAZOLE <=20 Susceptible

[1] Due to serious side effects, the FDA has advised against using
Ciprofloxacin to treat uncomplicated UTIs and respiratory tract infections
unless there are no alternative treatment options.

null Performing Location [facility] [place] [address] [facility] [address]
--- OUTSIDE RECORDS SUMMARY | 2023-07-20 17:18 | External Medical Summary | Summary of Care ---
Author Name Unknown Organization [facility] Address [address] [place] [address] Phone [phone] Care Team Providers Care Can Piler Name Role Phone Jomar Thompson MD Primary Care Provider + Encounter Details Date Type Department Care Team Description 03/26/2023 Orders Only [facility] Department [address] [place] [address] Chantal Ahmadi CHRA [facility] Other*[id number] Allergies No known active allergiesdocumented as of this encounter (statuses as of 03/26/2023) Medications Medication Sig Dispensed Refills Start Date [...] as of this encounter (statuses as of 03/26/2023) Active Problems Problem Noted Date Mild mitral [...] as of this encounter (statuses as of 03/26/2023) Resolved Problems Problem Noted Date Resolved Date [...] as of this encounter (statuses as of 03/26/2023) Immunizations Name Administration Dates Next Due COVID-19 mRNA, LNP-s, No Pre serve, 2-Dose Series (ANPI) 03/31/2021,09/25/2020,09/04/2020 H1N1 2008 Influenza, IM 06/28/2009 Pneumococcal [...] Visit Internal [facility] [address] [facility]/29/2023 Office Visit Cardiology Pepe Mckeon, DO [address] [place] [address] Scheduled Orders Name Type Priority Associated Diagnoses Orde r Schedule MYCODE SUBSEQUENT ADULT Lab Routine [facility] Other*[id number] Every 6 Months for 2 Occurrences starting 03/26/2023 until 04/14/2024 Health Maintenance Due Date Last Done Comments [...] this encounter Medical Devices Implanted Type Area Artificial Flowers Starcher Device Identifier Shelf Expiration Date Model / Serial / Lot Lens Intraoc 15.5 - [id number] - [id number] Implanted:Qty: 1 on 06/18/2018 by Pratik Zazueta MD at OR [facility] Right: Eye [employer] 11/26/2021 [id number] / [id number] / [id number] Lens Intraoc 17.0 - [id number] - [id number] Implanted:Qty: 1 on 06/24/2018 by Pratik Zazueta MD at OR [facility] Left: Eye [employer] 01/26/2023 [id number] / [id number] / [id number] documented as of this encounter Visit Diagnoses Diagnosis [facility] Other*[id number] documented in this encounter Care Teams Can Piler Relationship Specialty Start Date End Date Jomar Thompson MD [address] [place] [address], [place] [address] PCP - General Internal Medicine 05/27/21 documented as of this encounter
--- OUTSIDE RECORDS SUMMARY | 2023-07-20 17:19 | External Medical Summary ---
Author Name Unknown Address Unknown Organization K01:[facility] - [address] [place] [address] Laboratory Report Ordering Provider Test Date Status JOSE STOKES 02/22/2023 07:20:15 Final Observation Date Value Abnormality Reference (Units ) Status Magnesium 02/22/2023 07:20:15 2.4 1.5-2.6 (m g/dL) Final Performing Location [facility] - [address] [place] [address]
--- OUTSIDE RECORDS SUMMARY | 2023-07-20 17:19 | External Medical Summary ---
Author Name Unknown Address Unknown Organization K0G:[facility] - [address] [place] [address] Laboratory Report Ordering Provider Test Date Status JOSE STOKES 02/22/2023 07:20:15 Final Observation Date Value Abnormality Reference (Units ) Status BUN 02/22/2023 07:20:15 17 6-20 (mg/dL) Final Creatinine 02/22/2023 07:20:15 0.9 0.5-1.0 (mg/dL) Final Glomerular filtration rate/1.73 sq M.predicted [Volume Rate/Area] in Serum, Plasma or Blood by Creatinine-based formula (CKD-EPI) 02/22/2023 07:20:15 70 >=60 (mL/min) Final eGFR is calculated based on the CKD-EPI 2020 equation SODIUM 02/22/2023 07:20:15 141 135-146 (m mol/L) Final Potassium 02/22/2023 07:20:15 4.9 3.5-5.1 (m mol/L) Final Cl 02/22/2023 07:20:15 105 98-107 (mm ol/L) Final CO2 02/22/2023 07:20:15 26 22-32 (mmo l/L) Final Anion gap 02/22/2023 07:20:15 10 7-15 (mmol /L) Final Glucose 02/22/2023 07:20:15 100 70-120 (mg /dL) Final Albumin 02/22/2023 07:20:15 4.3 3.8-5.0 (g /dL) Final AST (Aspartate aminotransferase) 02/22/2023 07:20:15 29 10-35 (U/L) Final Alk Phos 02/22/2023 07:20:15 99 35-130 (U/ L) Final Bilirubin, Total 02/22/2023 07:20:15 0.6 <=1 .2 (mg/dL) Final Calcium 02/22/2023 07:20:15 10.2 8.4-10.2 ( mg/dL) Final Protein 02/22/2023 07:20:15 6.5 6.0-8.3 (g /dL) Final ALT (Alanine aminotransferase) 02/22/2023 07:20:15 30 10-35 (U/L) Final Performing Location [facility] [address] - [address] [facility] [address]
--- OUTSIDE RECORDS SUMMARY | 2023-07-20 17:19 | External Medical Summary ---
Author Name Unknown Address Unknown Organization K0G:[facility] - [address] [place] [address] Laboratory Report Ordering Provider Test Date Status JOSE STOKES 02/22/2023 07:20:15 Final Observation Date Value Abnormality Reference (Units ) Status SYNC LEUKOCYTES IN BLOOD BY AUTOMATED COUNT 02/22/2023 07:20:15 6.35 4.00-10.80 (K/uL) Final Segs 02/22/2023 07:20:15 54.1 40.0-75.0 (%) Final Lymphs % 02/22/2023 07:20:15 32.0 18.0-42.0 (%) Final Monos 02/22/2023 07:20:15 10.7 1.0-11.0 (%) Final Eosinophils 02/22/2023 07:20:15 2.7 0.0-6.0 (%) Final Basos 02/22/2023 07:20:15 0.5 0.0-2.0 (%) Final Absolute Segs 02/22/2023 07:20:15 3.44 1.80-7.70 (K/uL) Final Lymphs, absolute 02/22/2023 07:20:15 2.03 1.00-4.80 (K/ul) Final Monos, Abs 02/22/2023 07:20:15 0.68 0.00-1.10 (K/uL) Final Eos, Abs 02/22/2023 07:20:15 0.17 0.00-0.70 (K/uL) Final Basos, Abs 02/22/2023 07:20:15 0.03 0.00-0.20 (K/uL) Final Performing Location [facility] - [address] [place] [address]
--- OUTSIDE RECORDS SUMMARY | 2023-07-20 17:19 | External Medical Summary ---
Author Name Unknown Address Unknown Organization K01[facility] [place] [address] [place] [address] Laboratory Report Ordering Provider Test Date Status HADLEY SILVEIRA 02/22/2023 07:20:15 Final Observation Date Value Abnormality Reference (Units ) Status MYCODE SPECIMEN-SST 02/22/2023 07:20:15 Freezing of extracted DNA, whole blood and/or serum. Final Performing Location LAB[facility]ATORY [facility] - [address] [place] [address]
--- OUTSIDE RECORDS SUMMARY | 2023-07-20 17:19 | External Medical Summary ---
Author Name Unknown Address Unknown Organization K01:[facility] [place] [facility] [address] [place] [address] Laboratory Report Ordering Provider Test Date Status RUT STOKESTEIN 02/22/2023 07:20:15 Final Observation Date Value Abnormality Reference (Units ) Status Triglyceride 02/22/2023 07:20:15 65 <=174 ( mg/dL) Final Triglyceride Reference Range s (mg/dL):
<150 Acceptable
150-174 Borderline high
175-499 High
>=500 Very high Cholesterol 02/22/2023 07:20:15 161 <200 (mg /dL) Final Total Cholesterol Reference Ranges (mg/dL):
<200 Desirable
200-239 Borderline high
>=240 High HDL 02/22/2023 07:20:15 86 >49 (mg/dL ) Final HDL Cholesterol Reference Ra nges (mg/dL):
>=60 High (Desirable)
<50 Low (Undesirable) For Females
<40 Low (Undesirable) For Males NON-HDL CHOLESTEROL 02/22/2023 07:20:15 75 <=159 (mg/dL) Final Non-HDL Cholesterol Referenc e Range (mg/dL):
<100 Target level for high risk ASCVD patient
<130 Optimal for general population
130-159 Near optimal for general population
160-189 Borderline High
190-219 High
>=220 Very High LDL, (calculated) 02/22/2023 07:20:15 62 <= 129 (mg/dL) Final LDL Cholesterol Reference Ra nges (mg/dL):
<70 Target level for high risk ASCVD patient
<100 Optimal for general population
100-129 Near optimal for general population
130-159 Borderline high
160-189 High
>=190 Very high Performing Location [facility] [place] - [address] [facility] [address]
--- OUTSIDE RECORDS SUMMARY | 2023-07-20 17:19 | External Medical Summary ---
Author Name Unknown Address Unknown Organization K01:[facility] - [address] [place] [address] Laboratory Report Ordering Provider Test Date Status JOSE STOKES 02/22/2023 07:20:15 Final Observation Date Value Abnormality Reference (Units ) Status TSH 02/22/2023 07:20:15 1.07 0.27-4.20 (uIU/mL) Final Performing Location [facility] - [address] [place] [address]
--- OUTSIDE RECORDS SUMMARY | 2023-07-20 17:19 | External Medical Summary ---
Author Name Unknown Address Unknown Organization K01:[facility] [place] [address] [place] [address] Laboratory Report Ordering Provider Test Date Status HADLEY SILVEIRA 02/22/2023 07:20:15 Final Observation Date Value Abnormality Reference (Units ) Status MYCODE SPECIMEN-SST 02/22/2023 07:20:15 Freezing of extracted DNA, whole blood and/or serum. Final Performing Location LAB[facility]ATORY [facility] - [address] [place] [address]
--- OUTSIDE RECORDS SUMMARY | 2023-07-20 17:19 | External Medical Summary ---
Author Name Unknown Address Unknown Organization K0G:[facility] - [address] [place] [address] Laboratory Report Ordering Provider Test Date Status JOSE STOKES 02/22/2023 07:20:15 Final Observation Date Value Abnormality Reference (Units ) Status WBC, Total 02/22/2023 07:20:15 6.35 4.00-10.8 0 (K/uL) Final RBC 02/22/2023 07:20:15 4.66 3.85-5.15 (M/uL) Final Hemoglobin 02/22/2023 07:20:15 15.1 12.0-15.3 (g/dL) Final HCT 02/22/2023 07:20:15 44.0 36.0-45.2 (%) Final MCV 02/22/2023 07:20:15 94.4 81.5-97.5 (fL) Final MCH 02/22/2023 07:20:15 32.4 27.0-34.0 (pg) Final MCHC 02/22/2023 07:20:15 34.3 32.0-36.0 (g/dL) Final RDW 02/22/2023 07:20:15 14.1 11.5-15.5 (%) Final Platelets 02/22/2023 07:20:15 237 140-400 (K /uL) Final MPV 02/22/2023 07:20:15 9.6 6.6-11.1 ( fL) Final Performing Location [facility] [address] - [address] [place] [address]
--- OUTSIDE RECORDS SUMMARY | 2023-07-20 17:19 | External Medical Summary | Summary of Care ---
Author Name Unknown Organization [facility] Address [address] [place] [address] Phone [phone] Care Team Providers Care Early Childhood Education Worker Name Role Phone Jomar Thompson MD Primary Care Provider + Reason for Visit * Reason Comments Follow Up 6 month follow up. Jenifer valdes presents with concerns for depression. States she has been having difficulties sleeping, lack of energy, and no interest in doing anything. Encounter Details Date Type Department Care Team Description 02/20/2023 Office Visit General Internal Medicine [facility] [address] [facility] [place] [address] Jomar Thompson MD [address] [place] [address] Current moderate episode of major depressive disorder without prior episode (HCC)*; Dyslipidemia, goal LDL below 70; Ischemic heart disease; Mild mitral regurgitation; Encounter for long-term (current) use of medications; Primary insomnia Allergies No known active allergiesdocumented as of this encounter (statuses as of 02/20/2023) Medications Medication Sig Dispensed Refills Start Date [...] Oral Tablet Take by mouth. 0 Active LORazepam 1 MG Oral Tablet (Ativan)Indication s:Anxiety state One pill by mouth 3 times a day as needed for anxiety 30 Tablet 1 02/01/2022 Active Metoprolol Succinate ER 25 MG Oral [...] the morning. 90 Tablet 1 02/20/2023 Active Saline Nasal Carrie 0.65 % Nasal SolutionIndication s:Cough Administer 2 Sprays into each nostril as needed for Congestion. for nasal dryness or congestion 0 08/01/2021 3 Discontinue d(Patient preference/ discontinua tion) Zolpidem Tartrate 5 MG Oral Tablet (Ambien)Indication s:Insomnia, unspecified type One pill immediately before bedtime as needed for sleep. 90 Tablet 1 02/01/2022 3 Discontinue d(Patient preference/ discontinua tion) Sertraline HCl 25 MG Oral Tablet (Zoloft)Indication s:Anxiety Take by mouth 1 Tablet in the morning. 90 Tablet 3 03/09/2022 3 Discontinue d(Medicatio n/Dose Changed) Meloxicam 15 MG Oral Tablet Take 1 Tablet by mouth in the morning. 30 Tablet 5 01/03/2023 3 Discontinue d(Patient preference/ discontinua tion) documented as of this encounter (statuses as of 02/20/2023) Active Problems Problem Noted Date Mild mitral [...] as of this encounter (statuses as of 02/20/2023) Resolved Problems Problem Noted Date Resolved Date [...] as of this encounter (statuses as of 02/20/2023) Immunizations Name Administration Dates Next Due COVID-19 [...] Sign Reading Time Taken Comments Blood Pressure 118/66 02/20/2023 3:11 PM EDT Pulse 79 02/20/2023 3:11 PM EDT Temperature 37.1 C (98.7 F) 02/20/2023 3:11 PM ED T Respiratory Rate - - Oxygen Saturation 97% 02/20/2023 3:11 PM EDT Inhaled Oxygen Concentration - - Weight 71.9 kg (158 lb 9.6 oz) 02/20/2023 3:11 P M EDT Height 157.5 cm (5' 2") 02/20/2023 3:11 PM EDT Body Mass Index 29.01 02/20/2023 3:11 PM EDT documented in this encounter Progress Notes * Jomar Thompson MD - 02/20/2023 3:26 PM EDT Chief Complaint Patient presents with Follow Up 6 month follow up. Patient presents with concerns for depression. States she has been having difficulties sleeping, lack of energy, and no interest in doing anything. SUBJECTIVE: Jessi Solis is a 72 year old female with PMH as below who presents for Follow up lipids, insomnia, mitral regurg. No sob, christie rare cp she has had for 10+ years stable, happens rarely, no specific trigger. She follows with cardiology. She notes mood is down 3-4 months. Feels like doesn't like being vulnerable/aging (had to have shoulder surgery for bad shoulder so to speak). Feels safe, but mood down, no interest in doing things. Poor sleep, but ativan helps. No si, hi. Tolerates sertraline fine. No n/v/d. Patient Active Problem List Diagnosis Code Stress [...] Mild mitral regurgitation I34.0 Diastolic dysfunction I51.89 Current Outpatient Medications Medication Sig Dispense Refill [...] Vinegar Plus Oral Tablet Take by mouth. LORazepam 1 MG Oral Tablet (Ativan) One pill by mouth 3 times a day as needed for anxiety 30 Tablet 1 Metoprolol Succinate ER 25 MG Oral Tablet Extended Release 24 Hour (toPROL XL) TAKE ONE-HALF (1/2) TABLET DAILY 90 Tablet 3 Omeprazole 20 MG Oral Capsule Delayed Release (PriLOSEC) Take by mouth 1 Capsule in the morning. 1 hour before the first meal of the day.. 90 Capsule 3 Tolterodine Tartrate ER 4 MG Oral Capsule Extended Release 24 Hour (Detrol LA) Take 1 Capsule by mouth in the morning. 90 Capsule 3 Atorvastatin Calcium 40 MG Oral Tablet (Lipitor) Take 1 Tablet by mouth in the morning. 90 Tablet 2 Sertraline HCl 50 MG Oral Tablet (Zoloft) Take 1 Tablet by mouth in the morning. 90 Tablet 1 furosemide (LASIX) 20 MG Tablet Take 1 Tab by mouth daily. (Patient taking differently: Take 1 Tablet by mouth daily as needed.) 90 Tab 3 No current facility-administered medications for this visit. Review of patient's allergies indicates: No Known Allergies Health Maintenance Due Topic Date Due Colorectal Cancer Screening 04/13/2018 Mammogram 06/17/2019 COVID-19 Vaccine (4 - Pfizer series) 05/26/2021 ROS: CONSTITUTIONAL: No change in weight, No weakness and No fevers, sweats, or chills EYE: No recent significant change in vision and No eye pain, redness, discharge EARS: No ear pain, No drainage, No tinnitus or vertigo and No recent change in hearing NOSE: No history of frequent colds or sinusitis, No nasal stuffiness, No history of Hay Fever and No significant epistaxis PULMONARY: No cough, sputum, or hemoptysis, No wheezing, No rales, No shortness of breath and No recent change in breathing CARDIOVASCULAR: No chest pain, No shortness of breath, No dyspnea on exertion, No orthopnea, No paroxysmal nocturnal dyspnea, No edema, No palpitations and No syncope GASTROINTESTINAL: No abdominal pain, No change in bowel habits, No significant heartburn, No significant change in appetite, No nausea, vomiting, diarrhea, or constipation, No hematemesis, No blood in stools or black tarry stools, No abdominal bloating or early satiety and No dysphagia ALL OTHER SYSTEMS NEGATIVE I reviewed social, PMH, PSH, and family history and updated where needed. Social History Socioeconomic History Marital status: Spouse name: Not on file Number of children: Not on file Years of education: Not on file Highest education level: Not on file Occupational History Not on file Tobacco Use Smoking status: Former Packs/day: 0.50 Years: 15.00 Pack years: 7.50 Types: Cigarettes Smokeless tobacco: Former Quit date: 07/30/2010 Tobacco comments: quit smoking 5years 1/2 pack per day for 15 years Substance and Sexual Activity Alcohol use: Yes Comment: 5 drinks a week Drug use: No Sexual activity: Yes Partners: Male Other Topics Concern Not on file Social History Narrative Not on file Social Determinants of Health Financial Resource Strain: Not on file Food Insecurity: No Food Insecurity Worried About Running Out of Food in the Last Year: Never true Ran Out of Food in the Last Year: Never true Transportation Needs: Not on file Physical Activity: Not on file Stress: Not on file Social Connections: Not on file Intimate Partner Violence: Not on file Housing Stability: Not on file Past Medical History: Diagnosis Date Depression Diastolic dysfunction 05/10/2022 Disc disorder of lumbar region 02/24/2008 Dyslipidemia, goal LDL below 130 07/18/2013 Female stress incontinence Heart attack (HCC) Hypertension Insomnia, unspecified Mild mitral regurgitation 05/10/2022 Past Surgical History: Procedure Laterality Date COLONOSCOPY 03/23/2003 every 5 years: colon polyps COLONOSCOPY, DIAGNOSTIC (RECTUM) 03/2008 f/u 5 years MAMMOGRAM SCREENING BILATERAL 03/14/2011 birad 2, repeat in [facility] [place] OPEN REPAIR OF ROTATOR CUFF ACUTE Right 05/22/2022 REMOVAL OF OVARY(S) 1972 cyst on ovary REMOVE CATARACT, INSERT LENS PROSTH Right 06/18/2018 right EXTRACAPSULAR CATARACT REMOVAL WITH INTRAOCULAR LENS performed by Pratik Zazueta MD at OR [facility] REMOVE CATARACT, INSERT LENS PROSTH Left 06/24/2018 left EXTRACAPSULAR CATARACT REMOVAL WITH INTRAOCULAR LENS performed by Pratik Zazueta MD at OR [facility] WRIST ARTHROSCOPY, DIAGNOSTIC 2018 Family History Problem Relation Age of Onset Stroke Mother Diabetes Mother Heart Disorder Father Diabetes Father No Past Hx Other Breast, Ovarian, or Colon CA OBJECTIVE: PHYSICAL EXAM: BP 118/66 | Pulse 79 | Temp 37.1 C (98.7 F) | Ht 1.575 m (5' 2") | Wt 71.9 kg (158 lb 9.6 oz) |SpO2 97% | BMI 29.01 kg/m | BSA 1.77 m General: alert, healthy and no distress Head: Normocephalic, No masses, lesions, tenderness or abnormalities Eye Exam: conjunctiva are pink and non-injected, sclera clear Ears: External ears normal, Canals clear, TM's Normal Heart: regular rate & rhythm, no murmur, no gallops, PMI non-displaced, S-1 normal and S-2 normal Lungs: normal respiratory rate and rhythm, lungs clear to auscultation Psych: normal affect, no flight of ideas or tangential thought, good eye contact, no pressured speech 10/19/22 cardiology 1. Ischemic coronary disease with history of silent RCA territory infarct. - clinically stable without exertional angina - recent Lexiscan nuclear stress test negative for inducible ischemia 2. Palpitations secondary to PAC's, PVC's, as well as cardiac awareness -symptoms controlled with low-dose Toprol-XL 3. Dyslipidemia - controlled; tolerating atorvastatin 40 mg daily 4. Former tobacco abuse. 5. H/o mildly elevated ALT - within normal range per most recent lab testing PLAN: Continue current cardiovascular medications including atorvastatin, Toprol-XL, furosemide, and low-dose aspirin. Update fasting lipid panel and CMP summer 2022. All questions answered to patient's satisfaction. She is agreeable to the current plan, however, will report any change or decline in clinical status. ASSESSMENT: F32.1 Current moderate episode of major depressive disorder without prior episode (HCC) (primary encounter diagnosis) E78.5 Dyslipidemia, goal LDL below 70 I25.9 Ischemic heart disease I34.0 Mild mitral regurgitation Z79.899 Encounter for long-term (current) use of medications F51.01 Primary insomnia PLAN: Current moderate episode of major depressive disorder without prior episode (HCC) (Primary) - CBC WITH WBC DIFFERENTIAL; Future; Expected date: 02/20/2023 - TSH; Future; Expected date: 02/20/2023 - Sertraline HCl 50 MG Oral Tablet (Zoloft); Take 1 Tablet by mouth in the morning. Check labs Discussed increase in sertraline given symptoms maybe from depression, she is willing The potential side effects of this medication have been discussed with the patient. Call if any significant problems with these are experienced. Update 3-4 weeks as well as we discussed takes time to kick in Offered counseling, declines Dyslipidemia, goal LDL below 70 - COMPREHENSIVE METABOLIC PANEL; Future; Expected date: 02/20/2023 - LIPID PANEL WITH DIRECT LDL IF TG IS HIGH; Future; Expected date: 02/20/2023 Cont lipitor Ischemic heart disease Sees cardiology, symptoms stable for years Mild mitral regurgitation F/u cardiology Encounter for long-term (current) use of medications - VITAMIN B12; Future; Expected date: 02/20/2023 - MAGNESIUM; Future; Expected date: 02/20/2023 Primary insomnia Perhaps some from depression, increase med as above Follow Up: Return in about 6 months (around 08/23/2023), or if symptoms worsen or fail to improve, for Fasting Labs Soon. | For: Fasting Labs Soon Jomar Thompson MD documented in this encounter Nursing Notes * Milan Chen CMA - 02/20/2023 3:10 PM EDT Chief Complaint Patient presents with Follow Up 6 month follow up. Patient presents with concerns for depression. States she has been having difficulties sleeping, lack of energy, and no interest in doing anything. documented in this encounter Plan of Treatment Upcoming Encounters Date Type Specialty Care Team Description 09/12/2023 Office Visit Internal Medicine Jomar Thompson MD [address] [facility] [place] [address] 10/29/2023 Office Visit Cardiology Pepe Mckeon DO [address] [place] [id number] Scheduled Orders Name Type Priority Associated Diagnoses Orde r Schedule COMPREHENSIVE METABOLIC PANEL Lab Routine Dyslipidemia, goal LDL below 70 Expected: 02/20/2023 (Approximate), Expires: 02/20/2024 LIPID PANEL WITH DIRECT LDL IF TG IS HIGH Lab Routine Dyslipidemia, goal LDL below 70 Expected: 02/20/2023, Expires: 02/21/2024 CBC WITH WBC DIFFERENTIAL Lab Routine Current moderate episode of major depressive disorder without prior episode (HCC) Expected: 02/20/2023 (Approximate), Expires: 02/21/2024 TSH Lab Routine Current moderate episode of major depressive disorder without prior episode (HCC) Expected: 02/20/2023 (Approximate), Expires: 02/20/2024 VITAMIN B12 Lab Routine Encounter for long-term (current) use of medications Expected: 02/20/2023 (Approximate), Expires: 02/20/2024 MAGNESIUM Lab Routine Encounter for long-term (current) use of medications Expected: 02/20/2023 (Approximate), Expires: 02/20/2024 Health Maintenance Due Date Last Done Comments [...] this encounter Medical Devices Implanted Type Area Chalk Cutter Device Identifier Shelf Expiration Date Model / Serial / Lot Lens Intraoc 15.5 - [id number] - [id number] Implanted:Qty: 1 on 06/18/2018 by Pratik Zazueta MD at OR [facility] Right: Eye [employer] 11/26/2021 [id number] / [id number] / [id number] Lens Intraoc 17.0 - [id number] - [id number] Implanted:Qty: 1 on 06/24/2018 by Pratik Zazueta MD at OR [facility] Left: Eye [employer] 01/26/2023 [id number] / [id number] / [id number] documented as of this encounter Visit Diagnoses Diagnosis Current moderate episode of major depressive disorder without prior episode (HCC)- Primary Dyslipidemia, goal LDL below 70 Other and unspecified hyperlipidemia Ischemic heart disease Chronic ischemic heart disease, unspecified Mild mitral regurgitation Mitral valve disorders Encounter for long-term (current) use of medications Encounter for long-term (current) use of other medications Primary insomnia Persistent disorder of initiating or maintaining sleep documented in this encounter Care Teams Early Childhood Education Worker Relationship Specialty Start Date End Date Jomar Thompson MD [address] [place] [id number] PCP - General Internal Medicine 05/27/21 documented as of this encounter
[2023-07-20] MEDS ORDERED: LEVALBUTEROL 1.25MG/0.5ML NEB NEB PRN (18:09)
[2023-07-20] MEDS ORDERED: ONDANSETRON INJ 2 MG/ML 2 ML VIAL IV PRN (18:09)
[2023-07-20] MEDS ORDERED: SODIUM CHLORIDE 0.65% NA SOLN 45 ML (OCEAN) PRN (18:09)
[2023-07-20] MEDS ORDERED: ASPIRIN 325 MG ECTAB PO STA (18:18)
[2023-07-20] MEDS: BENZONATATE 100 MG CAPSULE PO SCH (20:25)
[2023-07-21] MEDS ORDERED: KETOROLAC TROMETHAMINE 15 MG/ML VIAL IV ONE ×2 (00:22→13:04)
[2023-07-21] MEDS: PANTOprazole 40 MG TAB PO SCH (06:00)
[2023-07-21 06:13] LABS: Appearance Urine Clear (Clear); Bilirubin Urine Negative (Negative); Blood Urine Negative (Negative); Color Urine Yellow; Glucose Urine UA Negative (Negative); Ketones Urine Negative (Negative); Leukocyte Esterase Urine 2+ (Negative); Nitrite Urine Negative (Negative); Protein Urine Negative (Negative); Specific Gravity Urine 1.007 (1.000-1.030); Urobilinogen Urine Negative (Negative)
--- NOTE | 2023-07-21 06:50 | Electrocardiogram Report ---
Test Reason : Blood Pressure : / mmHG Vent. Rate : 082 BPM Atrial Rate : 082 BPM P-R Int : 144 ms QRS Dur : 070 ms QT Int : 358 ms P-R-T Axes : 053 -15 035 degrees QTc Int : 418 ms Normal sinus rhythm Normal ECG No previous ECGs available Confirmed by Marshal Luciano ([id number]) on 07/21/2023 6:49:46 AM Referred By: Confirmed By:Marshal Luciano
[2023-07-21 06:54] LABS: Hemoglobin 12.5 g/dl (12.0-16.0); Mean Corpuscular Hemoglobin 31.6 pg (25.0-34.0); Mean Corpuscular Hgb Conc 34.7 g/dL (32.0-36.0); Mean Corpuscular Volume 91.1 fL (80.0-100.0); Platelet Count 156 K/uL (130-400); RDW Coefficient of Variation 13.1 % (11.5-14.5); RDW Standard Deviation 43.7 fL (36.4-46.3); Red Blood Count 3.95 M/uL (4.20-5.40); White Blood Count 6.17 K/ul (4.8-10.8)
[2023-07-21 07:01] LABS: Cast Urine Automated 0 /lpf (0-5); RBC Urine Automated 0-4 /hpf (0-4)
[2023-07-21 07:02] LABS: Bacteria Urine Automated Negative (Negative)
[2023-07-21 07:15] LABS: BUN Creatinine Ratio 18.2 (10-20); Bilirubin Direct 0.1 mg/dl (0-0.2); Bilirubin,Total 0.5 mg/dl (0.2-1.0); Calcium 8.3 mg/dl (8.6-10.3); Creatinine Clr Calc Pharmacy 48.8 ml/min; Est GFR (Non-African American) 64.7 ml/min; Potassium 4.2 mmol/L (3.5-5.1); Total Protein 5.7 gm/dl (6.0-8.3)
[2023-07-21] MEDS: MAGNESIUM OXIDE 400 MG TAB PO SCH (09:33)
[2023-07-21] MEDS: CALCIUM 600MG + VIT D 400 IU TAB PO SCH (09:33)
[2023-07-21] MEDS: ASPIRIN 81 MG CHEW PO SCH (09:33)
[2023-07-21] MEDS: OMEGA-3 (PURIFIED FISH OIL) 1 GM CAP PO SCH (09:34)
[2023-07-21] MEDS: SERTRALINE HCL 50 MG TABLET PO SCH (09:34)
[2023-07-21] MEDS: VIBEGRON 75 MG TAB PO SCH (09:34)
[2023-07-21] MEDS: METOPROLOL SUCC 25MG EXT REL TAB PO SCH (09:35)
[2023-07-21] MEDS: BENZONATATE 100 MG CAPSULE PO SCH ×3 (09:35→20:53)
[2023-07-21] MEDS: MULTIVITAMIN TAB PO SCH (09:35)
[2023-07-21] MEDS: cefTRIAXone SODIUM 1,000 MG in DEXTROSE 5 % MINI-B 50 ML IV SCH (16:55)
[2023-07-21] MEDS: SODIUM CHLORIDE 0.65% NA SOLN 45 ML (OCEAN) SCH ×3 (17:22→23:55)
[2023-07-21] MEDS: guaiFENesin 600 MG TABCR PO SCH ×2 (17:25→20:53)
--- NOTE | 2023-07-21 19:49 | Hospitalist Progress Note ---
Date of Service July 21, 2023 Assessment & Plan (1) Elevated transaminase level: (2) Ureterolithiasis: (3) Urge incontinence: (4) Acute UTI (urinary tract infection): (5) GERD (gastroesophageal reflux disease): (6) HLD (hyperlipidemia): (7) Ischemic heart disease: Plan: 72 yo F with PMhx of chronic disease, HLD, anxiety, GERD, urge incontinence who presents to the hospital with upper respiratory complaints for the past 2 weeks, vomited 1 time 1 week ago, yesterday and again today. Outpatient urinalysis conducted and culture grew out 100,000 colonies of E. coli on preliminary result reported on 07/19/2023 she was not started on outpatient antibiotic, upon hearing this patient presented to the ER. UTI, e. Eoli Urge Incontinence Ureterolithiasis -Continue ceftriaxone IV while inpt - given posit. outpt cultx , UA also obtained in ED -follow ucultx from ED -CT abdomen pelvis conducted showing 4 mm UVJ stone, left, no hydronephrosis, nonobstructing. -Strain all urine, no abdominal or flank pain, patient is tolerating p.o. intake Upper Respiratory Illness - CT chest showing Mild interlobular septal thickening and patchy subpleural groundglass opacities within the lungs. Findings may reflect an infectious process although are nonspecific. No confluent consolidation. + hilar lymphadenopathy, These may be reactive. A follow-up chest CT in 6 months is recommended to ensure stability/resolution - COVID, RSV and flu swab negative, can hold off on biofire at this time and treat supportively with nasal spray, tessalon pearls, xopenex nebs prn - pt on ceftriaxone as above Elevated Transaminases -H/o of elevated ALT per records in 2019 -Recently in normal range in OP labs; potentially 2/2 ongoing infection/illness - hepatitis panel obtained - LFTs trending down - pt has no RUQ or any abd. pain on exam - Holding statin therapy, patient denies any Tylenol use, she does admit to drinking 2 glasses of wine daily and has done this for many years - CT abd/pelvis is negative for acute findings which would cause concern with elevation of LFTs, benign abdomen on exam, no changes in bowels, + vomiting but minimal. - will obtain liver US - Can consider autoimmune panel if LFTs uptrending/not improving HLD - Holding statin therapy for now Ischemic heart disease - Echo April 2022 showing LVEF of 55 to 59%, no wall motion abnormalities, grade 1 diastolic dysfunction - appears euvolemic - Continue baby aspirin daily - Chronic, stable DVT PPx: teds, scds CODE: DNR/DNI Dispo: From home, likely DC tmrw Admission and Anticipated Discharge Date Admission Date: July 20, 2023 Subjective Pt seen in follow up RONY, elevated LFTs Currently laying in bed in NAD, reports feeling much better Reports having CUEVAS with cough No chest pain, palpitations. has upper resp. symptoms for past 2 weeks. No abd. pain. Says she is tolerating diet now. No dysuria, no flank pain. She is inquiring about discharge. Pt's LELO Romano updated over the phone - pt in agreement to discuss w/ Rosalina. Rosalina concerned about CUEVAS and reports pt fell - does not seem that pt mentioned it to anyone. will order head CT. Also discussed elev. LFTs, CT abd - unremarkable - will check liver US. Review of Systems Review of Systems: All systems reviewed & are unremarkable except as noted in Subjective Physical Exam Physical Exam: General: WD/WN F in NAD Head: Normocephalic, atraumatic ENT: PERRL, EOMI, no pharyngeal exudate, mucous membranes moist Chest: Clear to auscultation, on room air, no adventitious breath sounds, +cough w/ deep inspiration Cardiac: Regular rate and rhythm, no murmur, no JVD Abdominal: NABS x 4 quadrants, soft, nondistended, nontender to palpation Extremities: Normal inspection, no peripheral edema or erythema Psych: Normal mood and affect Neuro: AAO x 3, answers appropriately, no facial asymmetry, speech fluent, moves extremities Results & Data Results & Data Vital Signs (Past 12 Hours) Vital Signs Temp Pulse Resp BP Pulse Ox O2 Del Method 07/21/23 14:30 37.0 C 80 16 108/68 90 Room Air 07/21/23 09:30 Room Air Laboratory Results 07/21/23 07/21/23 Range/Units 06:21 06:00 WBC 6.17 (4.8-10.8) K/ul RBC 3.95 L (4.20-5.40) M/uL Hgb 12.5 (12.0-16.0) g/dl Hct 36.0 L (37.0-47.0) % MCV 91.1 (80.0-100.0) fL MCH 31.6 (25.0-34.0) pg MCHC 34.7 (32.0-36.0) g/dL RDW Std Deviation 43.7 (36.4-46.3) fL RDW Coeff of Chio 13.1 (11.5-14.5) % Plt Count 156 (130-400) K/uL MPV 10.0 (9.4-12.4) fL Sodium 138 (136-145) mmol/L Potassium 4.2 (3.5-5.1) mmol/L Chloride 105 (98-107) mmol/L Carbon Dioxide 27 (21-32) mmol/L Anion Gap 6 (3-11) BUN 16 (6-23) mg/dl Creatinine 0.88 (0.6-1.2) mg/dl Est Cr Clr Drug Dosing 48.8 ml/min Est GFR ( Amer) 75.0 ml/min Est GFR (Non-Af Amer) 64.7 ml/min BUN/Creatinine Ratio 18.2 (10-20) Glucose 107 H (70-99(Fasting)) mg/dl Calcium 8.3 L (8.6-10.3) mg/dl Total Bilirubin 0.5 D (0.2-1.0) mg/dl Direct Bilirubin 0.1 (0-0.2) mg/dl AST 171 H (13-39) U/L ALT 217 H (7-52) U/L Alkaline Phosphatase 185 H (34-104) U/L Total Protein 5.7 L (6.0-8.3) gm/dl Albumin 3.0 L (3.4-5.0) gm/dl Urine Color Yellow Urine Appearance Clear (Clear) Urine pH 7.0 (4.5-7.5) Ur Specific [place] 1.007 (1.000-1.030) Urine Protein Negative (Negative) Urine Glucose (UA) Negative (Negative) Urine Ketones Negative (Negative) Urine Blood Negative (Negative) Urine Nitrite Negative (Negative) Urine Bilirubin Negative (Negative) Urine Urobilinogen Negative (Negative) Ur Leukocyte Esterase 2+ H (Negative) Urine WBC (Auto) 10-30 H (0-5) /hpf Urine RBC (Auto) 0-4 (0-4) /hpf U Hyaline Cast (Auto) 0 (0-5) /lpf U Epithel Cells (Auto) 5-10 H (0-5) /lpf Urine Bacteria (Auto) Negative (Negative) Medications Administered Current Inpatient Medications Aspirin (Aspirin 81 Mg Chew) 81 mg PO DAILY [facility] Stop: 08/20/23 08:59 Last Admin: 07/21/23 09:33 Dose: 81 mg Benzonatate (Benzonatate 100 Mg Capsule) 100 mg PO TID FAM Stop: 08/19/23 20:59 Last Admin: 07/21/23 13:01 Dose: 100 mg Calcium/Vitamin D (Calcium 600mg + Vit D 400 Iu Tab) 1 tab PO DAILY FAM Stop: 08/20/23 08:59 Last Admin: 07/21/23 09:33 Dose: 1 tab Fish Oil ([place]-3 (Purified Fish Oil) 1 Gm Cap) 2 gm PO DAILY FAM Stop: 08/20/23 08:59 Last Admin: 07/21/23 09:34 Dose: 2 gm Guaifenesin (Guaifenesin 600 Mg Tabcr) 600 mg PO Q12 FAM Stop: 08/20/23 15:19 Last Admin: 07/21/23 17:25 Dose: 600 mg Ceftriaxone Sodium 1,000 mg/ (Dextrose) 50 mls @ 100 mls/hr IV Q24H FAM; Protocol Stop: 07/25/23 15:59 Last Infusion: 07/21/23 17:22 Dose: Infused Levalbuterol HCl (Levalbuterol 1.25mg/0.5ml Neb) 1.25 mg NEB Q6H PRN; Protocol PRN Reason: shortness of breath Stop: 08/19/23 18:08 Magnesium Oxide (Magnesium Oxide 400 Mg Tab) 400 mg PO DAILY [facility] Stop: 08/20/23 08:59 Last Admin: 07/21/23 09:33 Dose: 400 mg Metoprolol Succinate (Metoprolol Succ 25mg Ext Rel Tab) 12.5 mg PO QAM [facility] Stop: 08/20/23 08:59 Last Admin: 07/21/23 09:35 Dose: 12.5 mg Multivitamins (Multivitamin Tab) 1 tab PO DAILY [facility] Stop: 08/20/23 08:59 Last Admin: 07/21/23 09:35 Dose: 1 tab Ondansetron HCl (Ondansetron Inj 2 Mg/Ml 2 Ml Vial) 4 mg IV Q4H PRN PRN Reason: Nausea And Vomiting Stop: 08/19/23 18:08 Pantoprazole Sodium (Pantoprazole 40 Mg Tab) 40 mg PO DAILYBB [facility] Stop: 08/20/23 06:29 Last Admin: 07/21/23 06:00 Dose: 40 mg Sertraline HCl (Sertraline Hcl 50 Mg Tablet) 50 mg PO DAILY FAM Stop: 08/20/23 08:59 Last Admin: 07/21/23 09:34 Dose: 50 mg Sodium Chloride (Sodium Chloride 0.65% Na Soln 45 Ml ([place])) 2 sprays NA Q4H [facility] Stop: 08/20/23 15:29 Last Admin: 07/21/23 17:22 Dose: 2 sprays Vibegron (Vibegron 75 Mg Tab) 75 mg PO DAILY [facility] Stop: 08/20/23 08:59 Last Admin: 07/21/23 09:34 Dose: 75 mg
[2023-07-21] MEDS ORDERED: traMADol HCL 50 MG TABLET PO PRN (20:47)
--- NOTE | 2023-07-22 00:27 | CT Scan Report ---
Exam(s): CT HEAD Without Contrast EXAM: CT Head Without Intravenous Contrast CLINICAL HISTORY: Reason for exam: headache. TECHNIQUE: Axial computed tomography images of the head/brain without intravenous contrast. Automated exposure control was utilized for the study. A dose lowering technique was utilized adhering to the principles of ALARA. COMPARISON: No relevant prior studies available. FINDINGS: Brain: Unremarkable. No hemorrhage. Moderate nonspecific white matter changes.. No edema. Ventricles: Unremarkable. No ventriculomegaly. Bones/joints: Hyperostosis frontalis interna. No acute fracture. Soft tissues: Bilateral lens replacements. Sinuses: Unremarkable as visualized. No acute sinusitis. Mastoid air cells: Unremarkable as visualized. No mastoid effusion. IMPRESSION: No evidence of acute intracranial pathology. Electronically signed by: Stefanie Stephens MD 07/22/23 00:26 AM
[2023-07-22 05:05] LABS: HBSAG NON-REACTIVE (NON-REACTIVE); Hepatitis A Antibody IgM NON-REACTIVE (NON-REACTIVE); Hepatitis B Core Antibody IgM NON-REACTIVE (NON-REACTIVE)
[2023-07-22] MEDS: SODIUM CHLORIDE 0.65% NA SOLN 45 ML (OCEAN) SCH ×4 (06:21→15:05)
[2023-07-22] MEDS: PANTOprazole 40 MG TAB PO SCH (06:21)
[2023-07-22 07:26] LABS: Albumin Globulin Ratio 1.1 (0.9-2); Albumin Level 2.9 gm/dl (3.4-5.0); Bilirubin,Total 0.6 mg/dl (0.2-1.0); Creatinine Clr Calc Pharmacy 68.1 ml/min; Est GFR (African American) 102.4 ml/min; Est GFR (Non-African American) 88.4 ml/min; Globulin 2.7 gm/dl (2.5-4.0); Phosphorus 2.7 mg/dl (2.5-4.9); Potassium 4.2 mmol/L (3.5-5.1); Total Protein 5.6 gm/dl (6.0-8.3)
[2023-07-22] MEDS: guaiFENesin 600 MG TABCR PO SCH (09:23)
[2023-07-22] MEDS: BENZONATATE 100 MG CAPSULE PO SCH ×2 (09:23→13:31)
[2023-07-22] MEDS: ASPIRIN 81 MG CHEW PO SCH (09:23)
[2023-07-22] MEDS: MULTIVITAMIN TAB PO SCH (09:24)
[2023-07-22] MEDS: MAGNESIUM OXIDE 400 MG TAB PO SCH (09:24)
[2023-07-22] MEDS: OMEGA-3 (PURIFIED FISH OIL) 1 GM CAP PO SCH (09:24)
[2023-07-22] MEDS: CALCIUM 600MG + VIT D 400 IU TAB PO SCH (09:24)
[2023-07-22] MEDS: METOPROLOL SUCC 25MG EXT REL TAB PO SCH (09:25)
[2023-07-22] MEDS: SERTRALINE HCL 50 MG TABLET PO SCH (09:26)
[2023-07-22] MEDS: VIBEGRON 75 MG TAB PO SCH (09:26)
--- NOTE | 2023-07-22 09:47 | Ultrasound Report ---
ABDOMINAL ULTRASOUND, RIGHT UPPER QUADRANT HISTORY: elev. lfts. COMPARISON: Abdomen and pelvis CT 07/20/2023. FINDINGS: Pancreas: The pancreas demonstrates a normal echotexture. Liver: The liver is echogenic consistent with fatty change. Gallbladder: No gallbladder wall thickening. No gallstones. CBD: 3 mm. Right kidney: No hydronephrosis. IMPRESSION: 1. Normal gallbladder. No gallstones. 2. Hepatic steatosis. ACT 112: Negative or not required by law. Electronically signed by: Russell Beck M.D. 07/22/2023 9:45 AM
[2023-07-22] MEDS: cefTRIAXone SODIUM 1,000 MG in DEXTROSE 5 % MINI-B 50 ML IV SCH (15:05)
--- NOTE | 2023-07-22 17:28 | Hospitalist Progress Note ---
Date of Service July 22, 2023 Assessment & Plan (1) Elevated transaminase level: (2) Ureterolithiasis: (3) Urge incontinence: (4) Acute UTI (urinary tract infection): (5) GERD (gastroesophageal reflux disease): (6) HLD (hyperlipidemia): (7) Ischemic heart disease: Plan: 72 yo F with PMhx of chronic disease, HLD, anxiety, GERD, urge incontinence who presents to the hospital with upper respiratory complaints for the past 2 weeks, vomited 1 time 1 week ago, yesterday and again today. Outpatient urinalysis conducted and culture grew out 100,000 colonies of E. coli on preliminary result reported on 07/19/2023 she was not started on outpatient antibiotic, upon hearing this patient presented to the ER. UTI, e. Eoli Urge Incontinence Ureterolithiasis -Continued ceftriaxone IV while inpt - given posit. outpt cultx , UA obtained in ED - negative for infection -CT abdomen pelvis conducted showing 4 mm UVJ stone, left, no hydronephrosis, nonobstructing. -Strain all urine, no abdominal or flank pain, patient is tolerating p.o. intake - follow up as outpt Upper Respiratory Illness - CT chest showing Mild interlobular septal thickening and patchy subpleural groundglass opacities within the lungs. Findings may reflect an infectious process although are nonspecific. No confluent consolidation. + hilar lymphadenopathy, These may be reactive. A follow-up chest CT in 6 months is recommended to ensure stability/resolution - COVID, RSV and flu swab negative, can hold off on biofire at this time and treat supportively with nasal spray, tessalon pearls, xopenex nebs prn - pt on ceftriaxone as above - pt has had upper resp. infection (that seem viral) symptoms for past 2 weeks, + cough, concern for possibly starting developing pna - will discharge on po augmentin, cont. guaifenesin Tessalon perles, flutter valve, spirometer - overnight reportedly desat. noted and pt was placed on 2L of suppl. O2 via NC. currently she is communicating without any difficulty, on RA saturating in higher 90s. Recommend to possibly obtain outpt sleep study to further evaluate. Elevated Transaminases -H/o of elevated ALT per records in 2019 -Recently in normal range in OP labs; potentially 2/2 ongoing infection/illness - hepatitis panel obtained and negative - LFTs trending down - pt has no RUQ or any abd. pain on exam - Holding statin, patient denies any Tylenol use, she does admit to drinking 2 glasses of wine daily and has done this for many years - CT abd/pelvis is negative for acute findings which would cause concern with elevation of LFTs, benign abdomen on exam, no changes in bowels, vomiting has resolved - obtained liver US - 1. Normal gallbladder. No gallstones. 2. Hepatic steatosis. Given hepatic steatosis on US could possibly explain some lfts elevation. Recommend to follow up as outpt. If uptrending/not improving can consider autoimmune panel and/or outpt GI follow up HLD - Holding statin therapy for now Ischemic heart disease - Echo April 2022 showing LVEF of 55 to 59%, no wall motion abnormalities, grade 1 diastolic dysfunction - appears euvolemic - Continue baby aspirin daily, metoprolol - Chronic, stable Admission and Anticipated Discharge Date Admission Date: July 20, 2023 Subjective Pt seen in follow up UTI, elevated LFTs Currently laying in bed in NAD, reports feeling much better No chest pain, palpitations. has had upper resp. symptoms for past 2 weeks. Reports improving currently No abd. pain. Says she is tolerating diet now. No dysuria, no flank pain. She would like to be discharged. Pt's LELO Romano updated over the phone. Review of Systems Review of Systems: All systems reviewed & are unremarkable except as noted in Subjective Physical Exam Physical Exam: General: WD/WN F in NAD Head: Normocephalic, atraumatic ENT: PERRL, EOMI, no pharyngeal exudate, mucous membranes moist Chest: Clear to auscultation, on room air, no adventitious breath sounds, +cough w/ deep inspiration Cardiac: Regular rate and rhythm, no murmur, no JVD Abdominal: NABS x 4 quadrants, soft, nondistended, nontender to palpation Extremities: Normal inspection, no peripheral edema or erythema Psych: Normal mood and affect Neuro: AAO x 3, answers appropriately, no facial asymmetry, speech fluent, moves extremities Results & Data Results & Data Vital Signs (Past 12 Hours) Vital Signs Temp Pulse Resp BP Pulse Ox O2 Del Method O2 Flow Rate 07/22/23 14:10 36.6 C 63 17 100/61 98 Nasal Cannula 2 07/22/23 07:52 Nasal Cannula 2 07/22/23 07:41 36.8 C 83 17 108/68 91 Nasal Cannula 2 Laboratory Results 07/22/23 07/20/23 Range/Units 06:33 18:44 Sodium 134 L (136-145) mmol/L Potassium 4.2 (3.5-5.1) mmol/L Chloride 103 (98-107) mmol/L Carbon Dioxide 24 (21-32) mmol/L Anion Gap 7 (3-11) BUN 17 (6-23) mg/dl Creatinine 0.63 (0.6-1.2) mg/dl Est Cr Clr Drug Dosing 68.1 ml/min Est GFR ( Amer) 102.4 ml/min Est GFR (Non-Af Amer) 88.4 ml/min BUN/Creatinine Ratio 27.0 H (10-20) Glucose 86 (70-99(Fasting)) mg/dl Calcium 8.0 L (8.6-10.3) mg/dl Phosphorus 2.7 (2.5-4.9) mg/dl Magnesium 2.0 (1.7-2.4) mg/dl Total Bilirubin 0.6 (0.2-1.0) mg/dl AST 131 H (13-39) U/L ALT 204 H (7-52) U/L Alkaline Phosphatase 220 H (34-104) U/L Total Protein 5.6 L (6.0-8.3) gm/dl Albumin 2.9 L (3.4-5.0) gm/dl Globulin 2.7 (2.5-4.0) gm/dl Albumin/Globulin Ratio 1.1 (0.9-2) Hepatitis A IgM Ab NON-REACTIVE (NON-REACTIVE) Hep Bs Antigen NON-REACTIVE (NON-REACTIVE) Hep Bs Ag Confirmation TNP Hep B Core IgM Ab NON-REACTIVE (NON-REACTIVE) Hepatitis C Ab (EIA) NON-REACTIVE (NON-REACTIVE) Medications Administered Current Inpatient Medications Aspirin (Aspirin 81 Mg Chew) 81 mg PO DAILY FAM Stop: 08/20/23 08:59 Last Admin: 07/22/23 09:23 Dose: 81 mg Benzonatate (Benzonatate 100 Mg Capsule) 100 mg PO TID FAM Stop: 08/19/23 20:59 Last Admin: 07/22/23 13:31 Dose: 100 mg Calcium/Vitamin D (Calcium 600mg + Vit D 400 Iu Tab) 1 tab PO DAILY [facility] Stop: 08/20/23 08:59 Last Admin: 07/22/23 09:24 Dose: 1 tab Fish Oil ([place]-3 (Purified Fish Oil) 1 Gm Cap) 2 gm PO DAILY [facility] Stop: 08/20/23 08:59 Last Admin: 07/22/23 09:24 Dose: 2 gm Guaifenesin (Guaifenesin 600 Mg Tabcr) 600 mg PO Q12 FAM Stop: 08/20/23 15:19 Last Admin: 07/22/23 09:23 Dose: 600 mg Ceftriaxone Sodium 1,000 mg/ (Dextrose) 50 mls @ 100 mls/hr IV Q24H FAM; Protocol Stop: 07/25/23 15:59 Last Infusion: 07/22/23 15:39 Dose: Infused Levalbuterol HCl (Levalbuterol 1.25mg/0.5ml Neb) 1.25 mg NEB Q6H PRN; Protocol PRN Reason: shortness of breath Stop: 08/19/23 18:08 Magnesium Oxide (Magnesium Oxide 400 Mg Tab) 400 mg PO DAILY [facility] Stop: 08/20/23 08:59 Last Admin: 07/22/23 09:24 Dose: 400 mg Metoprolol Succinate (Metoprolol Succ 25mg Ext Rel Tab) 12.5 mg PO QAM [facility] Stop: 08/20/23 08:59 Last Admin: 07/22/23 09:25 Dose: 12.5 mg Multivitamins (Multivitamin Tab) 1 tab PO DAILY [facility] Stop: 08/20/23 08:59 Last Admin: 07/22/23 09:24 Dose: 1 tab Ondansetron HCl (Ondansetron Inj 2 Mg/Ml 2 Ml Vial) 4 mg IV Q4H PRN PRN Reason: Nausea And Vomiting Stop: 08/19/23 18:08 Pantoprazole Sodium (Pantop[facility]ole 40 Mg Tab) [facility] Stop: 08/20/23 06:29 Last Admin: 07/22/23 06:21 Dose: 40 mg Sertraline HCl (Sertraline Hcl 50 Mg Tablet) 50 mg PO DAILY [facility] Stop: 08/20/23 08:59 Last Admin: 07/22/23 09:26 Dose: 50 mg Sodium Chloride (Sodium Chloride 0.65% Na Soln 45 Ml ([place])) 2 sprays NA Q4H FAM Stop: 08/20/23 15:29 Last Admin: 07/22/23 15:05 Dose: 2 sprays Tramadol HCl (Tramadol Hcl 50 Mg Tablet) 50 mg PO Q6H PRN PRN Reason: Pain Stop: 08/20/23 20:46 Last Admin: 07/21/23 20:52 Dose: 50 mg Vibegron (Vibegron 75 Mg Tab) 75 mg PO DAILY FAM Stop: 08/20/23 08:59 Last Admin: 07/22/23 09:26 Dose: 75 mg
--- NOTE | 2023-07-22 17:52 | Discharge Summary ---
Date of Service July 22, 2023 Admission HPI Per Admitting Provider This is a 72 yo F with PMhx of chronic disease, HLD, anxiety, GERD, urge incontinence who presents to the hospital with upper respiratory complaints for the past 2 weeks, vomited 1 time 1 week ago, yesterday and again today. Patient had outpatient urinalysis conducted and culture grew out 100,000 colonies of E. coli on preliminary result reported on 07/19/2023 she was not started on outpatient antibiotic, upon hearing this patient presented to the ER. She denies any chronic abdominal pain or any recent changes in her medications. She admits to drinking 2 glasses of wine daily and has for many years. Pt uses meloxicam only intermittently, denies tylenol use. Patient also admits to having a cough/runny nose for the past 2 weeks, feels a bit fatigued, dyspneic after climbing a flight of stairs, but reports that she is not short of breath with normal ADLs. She admits to having some sweats, chills and felt like she was shaking 2 nights ago but denies any specific fever, did not take her temperature, did not take any antipyretic medications. She denies any recent sick contacts, lives at home with her . Daughter is present with her at bedside and supports the history. Admission Exam Per Admitting Provider General: awake, alert, no apparent distress, elderly white female Head: Normocephalic, atraumatic ENT: PERRL, EOMI, no pharyngeal exudate, mucous membranes moist Chest: Clear to auscultation, on room air, no adventitious breath sounds Cardiac: Regular rate and rhythm, no murmur, no JVD, normal peripheral pulses, good capillary refill Abdominal: NABS x 4 quadrants, soft, nondistended, nontender to palpation, no rebound or guarding Extremities: Normal inspection, no peripheral edema or erythema, calfs nontender to palpation Psych: Normal mood and affect Neuro: AAO x 3, strength intact bilaterally and rated 5/5, no motor deficits, speech is clear, no peripheral sensory deficits Principal Diagnosis Elevated LFTs, n/v Upper resp. infection UTI Discharge Exam General: WD/WN F in NAD Head: Normocephalic, atraumatic ENT: PERRL, EOMI, no pharyngeal exudate, mucous membranes moist Chest: Clear to auscultation, on room air, no adventitious breath sounds, +cough w/ deep inspiration Cardiac: Regular rate and rhythm, no murmur, no JVD Abdominal: NABS x 4 quadrants, soft, nondistended, nontender to palpation Extremities: Normal inspection, no peripheral edema or erythema Psych: Normal mood and affect Neuro: AAO x 3, answers appropriately, no facial asymmetry, speech fluent, moves extremities Discharge Data Allergies Allergy/AdvReac Type Severity Reaction Status Date / Time No Known Allergies Allergy Unverified 07/20/23 15:27 Consultations 07/20/23 15:57 ED Decision to Admit Stat Ordered Studies 07/20/23 13:35 CT Abd and Pelvis [CT abd pelvis IV con only] Stat FINDINGS: Lower chest: Peripheral interstitial thickening is seen. Liver: Unremarkable. No focal lesions are seen. Gallbladder and biliary tree: No calcified gallstones. Normal caliber wall. No i ntra- or extrahepatic biliary ductal dilation. Pancreas: Unremarkable, no focal lesions. Spleen: Unremarkable. Adrenals: Unremarkable. Kidneys and ureters: A stone in the right UVJ measures approximate 4 mm. No hydronephrosis is seen, there is minimal hydroureter. Bladder: Unremarkable. Reproductive organs: Unremarkable. Bowel: Diverticulosis is seen without evidence of diverticulitis. Lymph nodes Retroperitoneal: Unremarkable. Pelvic: Unremarkable. Mesenteric: Unremarkable. Peritoneum: Normal. Vessels: No evidence of aortic dissection. Abdominal wall: A fat-containing umbilical hernia is seen. Bones: Degenerative changes in the visualized spine. IMPRESSION: 1. There is a right UVJ stone without definite hydroureteronephrosis and minimal hydroureter. 2. Otherwise no acute abnormalities, in particular no evidence of dissection. 3. Diverticulosis without diverticulitis. 07/20/23 13:45 CTA chest dissec wo/w con [CT angio chest dissec wo/w con] Stat FINDINGS: Caliber of the thoracic aorta is normal. There is no thoracic aortic dissection. No intramural hematoma is present. There is no pericardial effusion. No pulmonary emboli are identified. A small hiatal hernia is present. There are a few mildly enlarged mediastinal and right hilar lymph nodes. Index AP window node on image 71 of 270 measures 1.7 x 1.2 cm. A right hilar node on image 92 measures 1.6 x 1.3 cm. No pneumothorax. Trace left pleural effusion is present. Mild interlobular septal thickening is noted. Subcutaneous pleural reticulation with tiny pulmonary nodules is noted. There is no confluent consolidation. Abdomen and pelvis CT will be reported separately. IMPRESSION: 1. No thoracic aortic dissection. 2. Mild interlobular septal thickening and patchy subpleural groundglass opacities within the lungs. Findings may reflect an infectious process although are nonspecific. No confluent consolidation. 3. Trace left pleural effusion. 4. Mild enlarged mediastinal and right hilar lymph nodes. These may be reactive. A follow-up chest CT in 6 months is recommended to ensure stability/resolution 07/21/23 20:47 CT head/brain wo con Routine FINDINGS: Brain: Unremarkable. No hemorrhage. Moderate nonspecific white matter changes.. No edema. Ventricles: Unremarkable. No ventriculomegaly. Bones/joints: Hyperostosis frontalis interna. No acute fracture. Soft tissues: Bilateral lens replacements. Sinuses: Unremarkable as visualized. No acute sinusitis. Mastoid air cells: Unremarkable as visualized. No mastoid effusion. IMPRESSION: No evidence of acute intracranial pathology. 07/22/23 US liver Routine FINDINGS: Pancreas: The pancreas demonstrates a normal echotexture. Liver: The liver is echogenic consistent with fatty change. Gallbladder: No gallbladder wall thickening. No gallstones. CBD: 3 mm. Right kidney: No hydronephrosis. IMPRESSION: 1. Normal gallbladder. No gallstones. 2. Hepatic steatosis. Hospital Course (1) Elevated transaminase level: (2) Ureterolithiasis: (3) Urge incontinence: (4) Acute UTI (urinary tract infection): (5) GERD (gastroesophageal reflux disease): (6) HLD (hyperlipidemia): (7) Ischemic heart disease: 72 yo F with PMhx of chronic disease, HLD, anxiety, GERD, urge incontinence who presents to the hospital with upper respiratory complaints for the past 2 weeks, vomited 1 time 1 week ago, yesterday and again today. Outpatient urinalysis conducted and culture grew out 100,000 colonies of E. coli on preliminary result reported on 07/19/2023 she was not started on outpatient antibiotic, upon hearing this patient presented to the ER. UTI, e. Eoli Urge Incontinence Ureterolithiasis -Continued ceftriaxone IV while inpt - given posit. outpt cultx , UA obtained in ED - negative for infection -CT abdomen pelvis conducted showing 4 mm UVJ stone, left, no hydronephrosis, nonobstructing. -Strain all urine, no abdominal or flank pain, patient is tolerating p.o. intake - follow up as outpt Upper Respiratory Illness - CT chest showing Mild interlobular septal thickening and patchy subpleural groundglass opacities within the lungs. Findings may reflect an infectious process although are nonspecific. No confluent consolidation. + hilar lymphadenopathy, These may be reactive. A follow-up chest CT in 6 months is recommended to ensure stability/resolution - COVID, RSV and flu swab negative, can hold off on biofire at this time and treat supportively with nasal spray, tessalon pearls, xopenex nebs prn - pt on ceftriaxone as above - pt has had upper resp. infection (that seem viral) symptoms for past 2 weeks, + cough, concern for possibly starting developing pna - will discharge on po augmentin, cont. guaifenesin Tessalon perles, flutter valve, spirometer - overnight reportedly desat. noted and pt was placed on 2L of suppl. O2 via NC. currently she is communicating without any difficulty, on RA saturating in higher 90s. Recommend to possibly obtain outpt sleep study to further evaluate. Elevated Transaminases -H/o of elevated ALT per records in 2019 -Recently in normal range in OP labs; potentially 2/2 ongoing infection/illness - hepatitis panel obtained and negative - LFTs trending down - pt has no RUQ or any abd. pain on exam - Holding statin, patient denies any Tylenol use, she does admit to drinking 2 glasses of wine daily and has done this for many years - CT abd/pelvis is negative for acute findings which would cause concern with elevation of LFTs, benign abdomen on exam, no changes in bowels, vomiting has resolved - obtained liver US - 1. Normal gallbladder. No gallstones. 2. Hepatic steatosis. Given hepatic steatosis on US could possibly explain some lfts elevation. Recommend to follow up as outpt. If uptrending/not improving can consider autoimmune panel and/or outpt GI follow up HLD - Holding statin therapy for now Ischemic heart disease - Echo April 2022 showing LVEF of 55 to 59%, no wall motion abnormalities, grade 1 diastolic dysfunction - appears euvolemic - Continue baby aspirin daily, metoprolol - Chronic, stable Total Time Total Time Spent Total Time Spent (In Minutes): 40 Discharge Plan Discharge Items Patient Disposition: Home - Self-Care Reason For Visit: ELEVATED TRANSAMINASES Discharge Diagnosis: Elevated LFTs, n/v Upper resp. infection UTI Activity: Per Instructions section Non-emergency contact: Primary Care Provider Call non-emergency contact if: you have any medication questions and your symptoms worsen Follow-up/Referrals: Jomar Thompson MD [Primary Care Provider] - Diet: Heart Healthy Addtl Attending Provider Instructions: Follow up with primary care doctor within 1 week. Finish antibiotic treatment as prescribed. Continue taking guaifenesin and use spirometer and flutter valve. For cough, you can take Tessalon perles. For now, recommend to hold atorvastatin, discuss with your primary care doctor when you can restart it. Recommend to have a sleep study done, please discuss this with your primary care physician. Pending Studies at Discharge: Yes Studies:: final blood cultures Stand-Alone Forms: My [employer], Smoking Cessation Medications and DC Order Prescriptions: New guaifenesin [Mucinex] 600 mg Tablet Extended Release 12hr 600 mg PO Q12 7 Days Qty: 14 0RF amoxicillin-pot clavulanate 875-125 mg tablet 1 tab PO BID 7 Days Qty: 14 0RF benzonatate 100 mg Capsule 100 mg PO TID Qty: 10 0RF Continued meloxicam 15 mg tablet 15 mg PO HS PRN (Reason: Mouth Pain) metoprolol succinate 25 mg tablet extended release 24 hr 12.5 mg PO QAM sertraline 50 mg tablet 50 mg PO DAILY Gemtesa 75 mg tablet 75 mg PO DAILY omeprazole 20 mg capsule,delayed release(DR/EC) 20 mg PO DAILYBB estradiol 0.01 % (0.1 mg/gram) cream 1 applic VAGINAL Q OTHER DAY Rx Instructions: apply pea sized amount (0.5gm) vaginally every other night multivitamin Tablet 1 tab PO DAILY aspirin [Aspirin Childrens] 81 mg Tablet,Chewable 81 mg PO DAILY furosemide 20 mg Tablet 20 mg PO DAILY PRN (Reason: Fluid Retention) lorazepam 1 mg tablet 1 mg PO TID PRN (Reason: Anxiety) omega [id number] oil [Fish Oil] 1,000 mg (120 mg-180 mg) Capsule 2 cap PO DAILY magnesium oxide 400 mg magnesium Tablet 400 mg PO DAILY Calcium 600 + D(3) 600 mg-5 mcg (200 unit) Capsule 1 cap PO DAILY Held atorvastatin 40 mg tablet 40 mg PO DAILY Hold Instructions: Resume on 07/27/23. Discharge Orders: Discharge Order (Routine); Ordered 07/22/23 Ordered By: Genaro Saenz Admission Data Admit Date/Time: 07/20/23 16:17 Attending Provider: Genaro Saenz Admit Provider: Ami Stauffer Primary Care Provider: Jomar Thompson Other Providers: Ami Stauffer Other Interventions: Discharge Summary Assessment (RN) Last Done: 07/22/23 17:13
[2023-07-22] MEDS ORDERED: guaiFENesin 600 MG TABCR PO SCH (18:00)
[2023-07-22] MEDS ORDERED: BENZONATATE 100 MG CAPSULE PO SCH (18:00)
[2023-07-22] MEDS ORDERED: AMOXICILLIN/CLAVULANATE 875 MG TAB PO SCH ×2 (18:00)
== END 2023-07-22 18:24 | disposition home or self-care (01) | DRG 689 ==
LOC: ED 12:17 → 3E 16:17 → SUATTDRO 16:17 → 3E 18:15

== ENCOUNTER 2024-01-11 05:45 | Observation (INO) ==
--- NOTE | 2024-01-04 09:59 | Anesthesiology Consultation ---
Date of Service January 04, 2024 Assessment & Plan (1) Encounter for pre-operative examination: Chart Review Chart Review: Acceptable Risk for Surgery and Patient NOT seen in Pre Admission Testing Per cardio phone note 01/03/24= "ECHO with normal heart pumping function, no significant valvular disease. No further cardiac testing needed prior to procedure. Low risk for surgery. -Infectious Disease screening: Per PAT nursing assessment on 12/26/23. No known infectious disease contacts in past 10 days or current infectious disease symptoms. No recent travel outside the country. Patient seen by cardio 11/07/23= seen for cardiology follow up and preop for upcoming hysterectomy and bladder surgery with Dr. Mao at [facility] on 01/11/24. Overall feeling well from cardiac standpoint. HR and BP controlled. Euvolemic on exam. Due to mild SOB and upcoming procedure- recommend repeat ECHO prior to surgery. Continue current meds. Follow up in one year Cysto, right ureteroscopy 10/30/23= Done under GA with LMA #3. LMA #4 unable to seat appropriately. LME #[address] History Surgery Operation Date: 01/11/24 07:00 Proposed Procedures p Mid-Urethral Sling, - Vj Mao MD s Combined Anterior/Posterior Colporrhaphy - Vj Mao MD s Robotic Assisted Total Laparoscopic Hysterectomy, Bilateral Salpingo- Oophorectomy, Uterosacral Vaginal Vault Suspension - Vj Mao MD Height/Weight Height: 5 ft Weight: 68.039 kg Allergies Allergy/AdvReac Type Severity Reaction Status Date / Time No Known Allergies Allergy Verified 12/26/23 07:32 Medications Home Medications Medication Instructions Recorded Confirmed Last Taken aspirin 81 mg chewable tablet 81 mg PO QAM 07/20/23 12/26/23 10/29/23 08:00 (Aspirin Childrens) atorvastatin 40 mg tablet 40 mg PO QAM 07/20/23 12/26/23 10/29/23 08:00 calcium carbonate 600 mg-vitamin 1 cap PO QAM 07/20/23 12/26/23 10/29/23 21:00 D3 5 mcg (200 unit) capsule (Calcium 600 + D(3)) estradiol 0.01% (0.1 mg/gram) 1 applic vaginal Q OTHER DAY 07/20/23 12/26/23 10/26/23 vaginal cream furosemide 20 mg tablet 20 mg PO DAILY PRN Fluid Retention 07/20/23 12/26/23 08/14/23 lorazepam 1 mg tablet 0.5 mg PO TID PRN Anxiety 07/20/23 12/26/23 10/27/23 magnesium oxide 400 mg PO QAM 07/20/23 12/26/23 10/29/23 08:00 metoprolol succinate 25 mg 12.5 mg PO QAM 07/20/23 12/26/23 10/30/23 06:00 tablet,extended release 24 hr multivitamin 1 tab PO QAM 07/20/23 12/26/23 10/29/23 omega 4-buh-xim-fish oil 1,000 mg 2 cap PO BID 07/20/23 12/26/23 10/29/23 08:00 (120 mg-180 mg) capsule (Fish Oil) omeprazole 20 mg capsule,delayed 20 mg PO DAILYBB 07/20/23 12/26/23 10/30/23 06:00 release sertraline 50 mg tablet 50 mg PO QAM 07/20/23 12/26/23 10/29/23 08:00 vibegron 75 mg tablet (Gemtesa) 75 mg PO HS 07/20/23 12/26/23 10/29/23 21:00 Past Medical History Medical History (Updated 01/04/24 @ 09:57 by Evie Toledo PA-C) Depression GERD (gastroesophageal reflux disease) History of COVID-19 06/2023, hospitalized, no current issues HLD (hyperlipidemia) HTN (hypertension) Ischemic heart disease Per cardio records "ischemic coronary disease with history of silent RCA territory infarct" Follows with Dr. Mckeon Nausea and vomiting after administration of anesthetic agent Osteoarthritis Silent myocardial infarction hx Suspected sleep apnea no device, needs to reschedule sleep study Ureterolithiasis hx Urinary incontinence Past Family History Family History Mother Stroke Diabetes Father Diabetes Heart disease Past Surgical History Surgical History (Updated 01/04/24 @ 09:58 by Evie Toledo PA-C) History of appendectomy History of cataract surgery bilateral History of cystoscopy Cysto, right ureteroscopy 10/30/23= Done under GA with LMA #3. LMA #4 unable to seat appropriately. LME #[address] History of open reduction and internal fixation (ORIF) procedure Left wrist History of unilateral oophorectomy Hx of colonoscopy Hx of rotator cuff surgery Rt Social History Smoking Status: Never smoker Do You Dip or Chew Tobacco: No Hx Alcohol Use: Yes Alcohol type: wine alcohol intake frequency: 0-2 drinks per day Hx Substance Use: No substance use type: does not use Lab Results Anesthesia Preop Results Results Anesthesia Widget: WBC 7.48 K/ul (4.8-10.8) 01/01/24 Hgb 13.9 g/dl (12.0-16.0) 01/01/24 Hct 40.8 % (37.0-47.0) 01/01/24 Plt 253 K/uL (130-400) 01/01/24 Na 139 mmol/L (136-145) 01/01/24 K 3.9 mmol/L (3.5-5.1) 01/01/24 Cl 105 mmol/L (98-107) 01/01/24 CO2 30 mmol/L (21-32) 01/01/24 BUN 15 mg/dl (6-23) 01/01/24 Creat 0.84 mg/dl (0.6-1.2) 01/01/24 Glucose Level 107 mg/dl (70-99(Fasting)) H 01/01/24 Blood Type A Positive 01/01/24 Antibody Screen NEGATIVE 01/01/24 Testing Electrocardiogram Date: 11/07/23 Findings: + NSR @ (69bpm) Low voltage QRS, consider pulmonary disease, pericardial effusion or normal variant Cannot rule out anterior infarct, age undetermined When compared to EKG from May 08, 2022- PACs are no longer present, nonspecific T wave abnormality now evident in lateral leads per cardio Chest X-Ray Date: 10/23/23 FINDINGS: A PA chest radiograph is compared to chest x-ray and chest CT dated 07/20/2023. The cardiomediastinal silhouette is unchanged. Chronic interstitial thickening is similar to previous. There is mild bibasilar scarring/atelectasis. No airspace consolidation or pleural effusion is identified. No pneumothorax is seen. The skeletal structures are osteopenic. The bony thorax is grossly intact. IMPRESSION: No active disease in the chest. Echocardiogram Date: 12/31/23 EF: 60-64% LV Function: normal RWMA: + none Other Findings: + LVH (mild/concentric ); no diastolic dysfunction Mild AV sclerosis is present. Aortic stenosis is absent No evidence of pulm HTN Stress Test Date: 06/14/21 Type: nuclear Medical perfusion is normal with no evidence of infarction or inducible ischemia Stress EKG response was nondiagnostic due to artifact No significant repolarization changes were noted early in the postrecovery interval when the artifact resolved. Gated SPECT images reveal normal myocardial thickening and wall motion. LVEF could not be calculated due to technical limitation but is qualitatively normal with estimated LVEF in the range of 60-65%. Overall the study is felt to represent a low risk underlying hemodynamically significant coronary heart disease.
--- NOTE | 2024-01-11 05:30 | History & Physical Report ---
Date of Service January 11, 2024 Assessment & Plan (1) Uterovaginal prolapse, incomplete: Plan: Robotic hysterectomy, bso, uterosacral colpopexy, colporrhaphy Present on Admission?: Yes (2) TANNER (stress urinary incontinence, female): Plan: sling and cystoscopy Present on Admission?: Yes Plan Mrs. Hanson complains of symptomatic uterovaginal prolapse and Urinary incontinence. She did not like pessary therapy and now desires robotic hysterectomy, BSO, Uterosacral colpopexy, sling, and cystoscopy. Risks of infection, bleeding, injury, pain, mesh exposure, urinary retention were reviewed. All questions answered. Informed consent confirmed. Admission and Anticipated Discharge Date Admission Date: 01/11/2024 Anticipated date of discharge: 01/12/24 History of Present Illness Chief Complaint: Uterovaginal prolapse and stress urinary incontinence Primary Care Provider: Jomar Thompson MD Jessi Solis is a 73 year old woman P3 with uterovaginal prolapse and TANNER here for robotic hysterectomy, bso, uterosacral colpopexy, colporrhaphy, sling, and cystoscopy. She complains of feeling a persistent vaginal bulge for several years. She tried a pessary but found it to inconvenient and now prefers to have surgery. She complains of urinary incontinence. On exam she was found to have a Positive cough stress test for stress incontinence. Her urinary urgency and urge incontinence is well controlled with Gemtesa. Allergies Allergy/AdvReac Type Severity Reaction Status Date / Time No Known Allergies Allergy Verified 01/11/24 06:11 Home Medications Medication Instructions Recorded Confirmed Type aspirin 81 mg chewable tablet 81 mg PO QAM 07/20/23 01/11/24 History (Aspirin Childrens) atorvastatin 40 mg tablet (Lipitor) 40 mg PO QAM 07/20/23 01/11/24 History calcium carbonate 600 mg-vitamin 1 cap PO QAM 07/20/23 01/11/24 History D3 5 mcg (200 unit) capsule (Calcium 600 + D(3)) estradiol 0.01% (0.1 mg/gram) 1 applic vaginal Q OTHER DAY 07/20/23 01/11/24 History vaginal cream furosemide 20 mg tablet 20 mg PO DAILY PRN Fluid Retention 07/20/23 01/11/24 History lorazepam 1 mg tablet 0.5 mg PO TID PRN Anxiety 07/20/23 01/11/24 History magnesium oxide 400 mg PO QAM 07/20/23 01/11/24 History metoprolol succinate 25 mg 12.5 mg PO QAM 07/20/23 01/11/24 History tablet,extended release 24 hr multivitamin 1 tab PO QAM 07/20/23 01/11/24 History omega 4-ttp-uvs-fish oil 1,000 mg 2 cap PO BID 07/20/23 01/11/24 History (120 mg-180 mg) capsule (Fish Oil) omeprazole 20 mg capsule,delayed 20 mg PO DAILYBB 07/20/23 01/11/24 History release sertraline 50 mg tablet (Zoloft) 50 mg PO QAM 07/20/23 01/11/24 History vibegron 75 mg tablet (Gemtesa) 75 mg PO HS 07/20/23 01/11/24 History Past Med/Surg History Problem List (Updated 01/11/24 @ 07:20 by Vj Mao MD) TANNER (stress urinary incontinence, female) Uterovaginal prolapse, incomplete Encounter for pre-operative examination Elevated transaminase level Urge incontinence GERD (gastroesophageal reflux disease) HLD (hyperlipidemia) Ureterolithiasis (Acute) Medical History History of COVID-19 06/2023, hospitalized, no current issues Ischemic heart disease Per cardio records "ischemic coronary disease with history of silent RCA territory infarct" Follows with Dr. Mckeon Nausea and vomiting after administration of anesthetic agent HLD (hyperlipidemia) GERD (gastroesophageal reflux disease) Ureterolithiasis hx Osteoarthritis Urinary incontinence Depression HTN (hypertension) Silent myocardial infarction hx Suspected sleep apnea no device, needs to reschedule sleep study Surgical History History of cystoscopy Cysto, right ureteroscopy 10/30/23= Done under [facility] with LMA #3. LMA #4 unable to seat appropriately. LME #[address] History of appendectomy History of cataract surgery bilateral History of open reduction and internal fixation (ORIF) procedure Left wrist History of unilateral oophorectomy Hx of colonoscopy Hx of rotator cuff surgery Rt Family History Mother Stroke Diabetes Father Diabetes Heart disease Social History Smoking Status: Never smoker Tobacco Type: Cigarettes Second Hand Exposure: No; Do You Dip or Chew Tobacco: No; Tobacco Cessation Education Requested by Patient: No Hx Alcohol Use: Yes Alcohol type: wine Hx Substance Use: No Preferred Language: Uzbek Communication Ability: Effective Tentering Machine Feeder Required: No Beliefs That Will Affect Care: None Current Living Situation: Spouse Other Information That Helps Us Care for You: No Feels Safe at Home: Yes Safety Concerns: Feels Safe At This Time Assistive Devices: Glasses and Hearing Aid - Bilateral Review of Systems Review of Systems: All systems reviewed & are unremarkable except as noted in HPI & below Physical Exam Constitutional: WD/WN, vitals as above Eyes: PERRL, conjunctivae normal, anicteric sclerae Neck: trachea midline, no thyromegaly Respiratory: normal respiratory effort Cardiovascular: Rate/Rhythm: regular rate and regular rhythm Gastrointestinal (Abdomen): Inspection/Auscultation: abdomen normal to inspection Percussion/Palpation: abdomen soft Non tender, Non distended Musculoskeletal: Non tender calves, neg edema Skin: no rashes, warm and dry Psychiatric: A+Ox3, euthymic affect Code Status & VTE Plan VTE Prophylaxis Plan VTE Prophylaxis will be ordered: Yes
[2024-01-11] MEDS: LR 15ML/HR IV SCH (06:50)
[2024-01-11] MEDS: metroNIDAZOLE 500 MG/100 ML BAG IV SCH (06:56)
--- NOTE | 2024-01-11 07:03 | Anesthesiology Consultation ---
Date of Service January 11, 2024 Assessment & Plan Chart Review Chart Review: Acceptable Risk for Surgery Consults Requested none History Surgery Operation Date: 01/11/24 07:30 Proposed Procedures p Robotic Assisted Total Laparoscopic Hysterectomy, Bilateral Salpingo- Oophorectomy, Uterosacral Vaginal Vault Suspension - Vj Mao MD s Mid-Urethral Sling, - Vj Mao MD s Combined Anterior/Posterior Colporrhaphy - Vj Mao MD Height/Weight Height: 5 ft Weight: 70.579 kg Allergies Allergy/AdvReac Type Severity Reaction Status Date / Time No Known Allergies Allergy Verified 01/11/24 06:11 Medications Home Medications Medication Instructions Recorded Confirmed Last Taken aspirin 81 mg chewable tablet 81 mg PO QAM 07/20/23 01/11/24 01/03/24 08:00 (Aspirin Childrens) atorvastatin 40 mg tablet (Lipitor) 40 mg PO QAM 07/20/23 01/11/24 01/10/24 08:00 calcium carbonate 600 mg-vitamin 1 cap PO QAM 07/20/23 01/11/24 01/03/24 20:00 D3 5 mcg (200 unit) capsule (Calcium 600 + D(3)) estradiol 0.01% (0.1 mg/gram) 1 applic vaginal Q OTHER DAY 07/20/23 01/11/24 10/26/23 vaginal cream furosemide 20 mg tablet 20 mg PO DAILY PRN Fluid Retention 07/20/23 01/11/24 08/14/23 lorazepam 1 mg tablet 0.5 mg PO TID PRN Anxiety 07/20/23 01/11/24 10/27/23 magnesium oxide 400 mg PO QAM 07/20/23 01/11/24 01/03/24 08:00 metoprolol succinate 25 mg 12.5 mg PO QAM 07/20/23 01/11/24 01/10/24 08:00 tablet,extended release 24 hr multivitamin 1 tab PO QAM 07/20/23 01/11/24 01/03/24 08:00 omega 4-dxp-uyq-fish oil 1,000 mg 2 cap PO BID 07/20/23 01/11/24 01/03/24 08:00 (120 mg-180 mg) capsule (Fish Oil) omeprazole 20 mg capsule,delayed 20 mg PO DAILYBB 07/20/23 01/11/24 01/10/24 08:00 release sertraline 50 mg tablet (Zoloft) 50 mg PO QAM 07/20/23 01/11/24 01/10/24 08:00 vibegron 75 mg tablet (Gemtesa) 75 mg PO HS 07/20/23 01/11/24 01/09/24 20:00 Active Medications Generic Name Dose Route Start Last Admin Trade Name Tonya PRN Reason Stop Dose Admin Lactated Ringer's 1,000 mls @ 15 mls/hr 01/11/24 06:00 01/11/24 06:50 Lr IV 01/12/24 05:59 15 mls/hr .Q24H FAM Administration Metronidazole 500 mg in 100 mls @ 100 mls/hr 01/11/24 06:00 01/11/24 06:56 Flagyl IV 01/12/24 05:59 100 mls/hr PREOP FAM Administration NPO Date Last Intake of Fluids: 01/10/24 Time Last Intake of Fluids: 20:30 Date Last Intake of Solids: 01/10/24 Time Last Intake of Solids: 18:00 Past Medical History Medical History History of COVID-19 06/2023, hospitalized, no current issues Ischemic heart disease Per cardio records "ischemic coronary disease with history of silent RCA territory infarct" Follows with Dr. Mckeon Nausea and vomiting after administration of anesthetic agent HLD (hyperlipidemia) GERD (gastroesophageal reflux disease) Ureterolithiasis hx Osteoarthritis Urinary incontinence Depression HTN (hypertension) Silent myocardial infarction hx Suspected sleep apnea no device, needs to reschedule sleep study Past Family History Family History Mother Stroke Diabetes Father Diabetes Heart disease Past Surgical History Surgical History History of cystoscopy Cysto, right ureteroscopy 10/30/23= Done under [place] with LMA #3. LMA #4 unable to seat appropriately. LME #[address] History of appendectomy History of cataract surgery bilateral History of open reduction and internal fixation (ORIF) procedure Left wrist History of unilateral oophorectomy Hx of colonoscopy Hx of rotator cuff surgery Rt Social History Smoking Status: Never smoker Do You Dip or Chew Tobacco: No Hx Alcohol Use: Yes Alcohol type: wine alcohol intake frequency: 0-2 drinks per day Hx Substance Use: No substance use type: does not use Physical Exam Vital Signs Last Vital Signs Temp 36.6 C 01/11/24 06:22 Pulse 60 01/11/24 06:22 Resp 20 01/11/24 06:22 BP 135/79 01/11/24 06:22 Pulse Ox 92 01/11/24 06:22 O2 Del Method Room Air 01/11/24 06:22
[2024-01-11] MEDS ORDERED: fentaNYL citrate PF 100 MCG/2 ML VIAL IV PRN (07:05)
[2024-01-11] MEDS ORDERED: HYDROmorphone INJ 2 MG/ML SYR/VIAL IV PRN (07:05)
[2024-01-11] MEDS ORDERED: ONDANSETRON INJ 2 MG/ML 2 ML VIAL IV PRN ×3 (07:05→16:52)
[2024-01-11] MEDS ORDERED: ATROPINE SULFATE 0.1 MG/ML 10ML SYR IV PRN (07:05)
[2024-01-11] MEDS ORDERED: ePHEDrine sulfate 50 MG/ML AMP IV PRN (07:05)
[2024-01-11] MEDS ORDERED: PROPOFOL IV EMULSION 10 MG/ML 20 ML VIAL IV ONE ×3 (07:14→08:35)
[2024-01-11] MEDS ORDERED: LIDOCAINE 2% 2 ML VIAL/AMP(20MG/ML) INFIL ONE (07:14)
[2024-01-11] MEDS ORDERED: MIDAZOLAM HCL 1 MG/ML 2ML VIAL ONE (07:15)
[2024-01-11] MEDS ORDERED: fentaNYL citrate PF 100 MCG/2 ML VIAL ONE ×2 (07:15→08:04)
[2024-01-11] MEDS ORDERED: PREMARIN VAG CRM 14 APPLN/30 GM TUBE ONE (07:19)
[2024-01-11] MEDS ORDERED: SCOPOLAMINE 1 MG/72 HR TDSY PATCH TD ONE (07:25)
[2024-01-11] MEDS: ceFAZolin 2000MG 2,000 MG/15 ML SYR IV SCH (07:47)
[2024-01-11] MEDS ORDERED: ACETAMINOPHEN 1000 MG/100 ML IV IV ONE (08:15)
[2024-01-11] MEDS: LIDOCAINE 1%/EPINEPHRINE 1:100,000 50 ML VIAL ONE (08:28)
[2024-01-11] MEDS ORDERED: PHENYLEPHRINE 100MCG/ML 10ML SYR IV ONE (08:31)
[2024-01-11] MEDS ORDERED: ONDANSETRON INJ 2 MG/ML 2 ML VIAL ONE (08:31)
[2024-01-11] MEDS ORDERED: ROCURONIUM BROMIDE 10 MG/ML 5 ML VIAL IV ONE (08:31)
[2024-01-11] MEDS ORDERED: ePHEDrine sulfate 50 MG/5 ML SYR ONE (08:31)
[2024-01-11] MEDS ORDERED: DEXAMETHASONE SOD INJ 4 MG/ML VIAL ONE (08:31)
[2024-01-11] MEDS ORDERED: SUGAMMADEX SODIUM 200 MG/2 ML VIAL IV ONE (08:32)
[2024-01-11] MEDS: BUPIVACAINE 0.5 % 5 MG/1 ML MPF 30ML VIAL ONE (08:57)
[2024-01-11] MEDS ORDERED: KETOROLAC 30 MG/ML VIAL ONE (09:04)
[2024-01-11] MEDS ORDERED: METHYLENE BLUE 0.5% 10 ML VIAL ONE (09:22)
[2024-01-11] MEDS ORDERED: oxyCODONE/ACETAMINOPHEN 5mg/325mg TAB PO PRN ×3 (09:46→16:52)
[2024-01-11] MEDS ORDERED: IBUPROFEN 600 MG TAB PO PRN ×2 (09:46→16:52)
--- NOTE | 2024-01-11 10:05 | Operative Report ---
Post Operative Report Pre & Post Diagnosis Operation Date: 01/11/24 07:30 Pre-Op Diagnosis: Stress Incontinence, Uterovaginal Prolapse Post-Op Diagnosis: Stress Incontinence, Uterovaginal Prolapse I identified the patient and participated in the time-out.: Yes Procedure Operation Date: 01/11/24 07:30 Actual Procedures p Robotic Assisted Total Laparoscopic Hysterectomy, Right Salpingo-Oophorectomy, Uterosacral Vaginal Vault Suspension(Right) - Vj Mao MD s Mid-Urethral Sling(Not Applicable) - MD chloe Caceres Posterior Colporrhaphy - Vj Mao MD Surgeon Vj Mao MD Acquisition Marketing Coordinator Yahaira Reed PA-C Estimated Blood Loss 30 Findings Consistent with Post-Op Diagnosis Grade 2 cystocele, grade 2 uterine prolapse, grade 2 rectocele. Normal cervix, uterus, right tube and ovary. Left tube and ovary was surgically absent. Normal cystoscopy with excellent efflux of ureters bilaterally. Fluids crystalloid Specimens cervix uterus, right tube and ovary Drains none Anesthesia Type General Complications none Disposition Accompanied Patient To Recovery: Yes Disposition: Recovery Room Indications Symptomatic uterovaginal prolapse, urinary incontinence Description of Procedure Jessi Solis was correctly identified in the preoperative area. We reviewed the indications, risks, benefits, and alternatives to the procedure. All questions were answered. Informed consent was confirmed. Patient was taken to the operating room and given general anesthesia per anesthesia service. She was placed in dorsal lithotomy position in [facility]. She was prepped and draped in the usual sterile fashion. Time out was performed. A Roberts catheter was placed. The anterior lip of the cervix was grasped with a tenaculum. The uterus was sounded to 6 cm and the cervix was serially dilated. A medium cup V- care uterine manipulator was applied. At the umbilicus an 8 mm incision was made. An 8 mm trocar was advanced through the incision, fascia, and into the abdominal cavity under direct visualization. The abdomen was insufflated with CO2 gas. On the left, an 8 mm trocar was placed and on the right two 8mm trocars were placed, under direct visualization. The patient was placed in moderate Trendelenburg position. The robot was docked. The right and left ureters were visualized. The right IP ligament was grasped, vessel sealed, and transected. The right round ligament was grasped, vessel sealed, and tra nsected. The bladder flap was developed. The right uterine vessels were dissected, grasped at the level of the cervical cup, vessel sealed, and transected. On the left, the round ligament was grasped, vessel sealed, and transected. The bladder flap was completed. The left uterine vessels were dissected, grasped at the level of the cervical cup, vessel sealed, and transected. A colpotomy incision was made following the cervical up. The cervix, uterus, right tube and ovary was delivered out the vagina and sent to pathology. The vaginal cuff was closed with 0 V-lock suture in a running [facility] ion. The uterosacral ligaments on the right was identified and found to be distant to the right ureter. The corner of the vaginal cuff was then suspended high in the pelvis to the proximal right uterosacral ligament with 0 V-lock suture. On the left, the uterosacral ligament was identified and found to be distant to the left ureter. The corner of the vaginal cuff was suspended to the proximal left uterosacral ligament with 0 V-lock suture. There was excellent suspension of the vaginal apex to the proximal uterosacral ligaments high in the pelvis. Excellent hemostasis was confirmed. The robot was undocked. The trocars were removed, the pneumoperitoneum was allowed to recede. The skin incisions were closed with 4-0 Monocryl in a subcuticular fashion and dressed with surgical glue. Vaginally, the apex and the anterior vaginal wall were well supported. A distal rectocele remained. The vaginal mucosa over the rectocele was grasped with Allis clamps, infiltrated with local anesthesia with epinephrine, and midline incision was made. The mucosa was dissected off the rectocele. The rectovaginal fascia was imbricated with 2-0 Vicryl in an interrupted fashion. A second imbrication layer was made with 2-0 Vicryl in mattress fashion. The excess mucosa was trimmed and sent to pathology. The incision was closed with 2-0 Vicryl in a running fashion. The vaginal mucosa at the level of the mid urethra was infiltrated with local anesthesia with epinephrine. A 1.5 cm incision was made. The edges of the incision was grasped with Allis clamps. The girma-urethral tissue was dissected sharply to the pubic rami bilaterally. The Solyx sling was assembled. The sling was implanted to the left obturator internus muscle. The other end of the sling was implanted into the right obturator internus muscle with no tension of the sling on the urethra. Cystoscopy was performed, no lesions were noted. Excellent efflux of ureters bilaterally was observed. The bladder was emptied and the cystoscope was removed. The incision was closed with 2-0 Vicryl in a running fashion. Long acting bupivacaine was infiltrated into the obturator spaces. Estrogen cream was applied to the vagina. Rectal exam was normal. All sponge, lap, and needle counts were correct. the patient was awakened, extubated and sent to recovery in good condition. I attest to the content of the Intraoperative Record and any orders documented therein. Any exceptions are noted below. No qualified resident was available. Yahaira Reed PA-C was necessary for robotic assistance, robotic instrument exchange.
--- NOTE | 2024-01-11 10:22 | Anesthesiology Progress Note ---
Date of Service January 11, 2024 Anesthesia Post Procedure Vital Signs Vital Signs: Temp Pulse Pulse Resp BP Pulse Ox O2 Del Method 01/11/24 10:10 83 19 127/79 92 Room Air 01/11/24 10:00 76 20 148/94 H 98 Oxymask 01/11/24 09:50 36.2 C L 95 H 16 152/103 H 95 Oxymask 01/11/24 06:22 36.6 C 60 20 135/79 92 Room Air O2 Flow Rate 01/11/24 10:10 01/11/24 10:00 11 01/11/24 09:50 11 01/11/24 06:22 Transfer of Care Handoff Completed per policy Notes Mental Status: alert / awake / arousable and participated in evaluation Patient Amnestic to Procedure: Yes Nausea / Vomiting: adequately controlled Pain: adequately controlled Airway Patency, RR, SpO2: stable & adequate BP & HR: stable & adequate Hydration State: stable & adequate Anesthetic Complications: no major complications apparent
[2024-01-11] MEDS ORDERED: PROMETHAZINE HCL INJ 25 MG/ML 1 ML VIAL ONE (10:29)
[2024-01-11] MEDS ORDERED: SODIUM CHLORIDE 0.9% 50 ML BAG ONE (10:29)
[2024-01-11] MEDS: PROMETHAZINE HCL 6.25 MG in SODIUM CHLORIDE 0.9% 50 ML IV PRN (10:30)
[2024-01-11] MEDS ORDERED: bisacodyL 10 MG SUPP PR PRN (16:52)
[2024-01-11] MEDS ORDERED: SIMETHICONE 80 MG CHEW PO PRN (16:52)
[2024-01-11] MEDS ORDERED: ZOLPIDEM TARTRATE 5 MG TAB PO PRN (16:52)
[2024-01-11] MEDS ORDERED: MAGNESIUM HYDROXIDE SUSP 30 ML UDC PO PRN (16:52)
[2024-01-11] MEDS ORDERED: FUROSEMIDE 20 MG TAB PO PRN (17:00)
[2024-01-11] MEDS ORDERED: LORazepam 0.5 MG TAB PO PRN (17:00)
[2024-01-11] MEDS: ACETAMINOPHEN 325 MG TAB PO PRN (20:00)
[2024-01-11] MEDS: DOCUSATE SODIUM 100 MG CAP PO SCH (21:07)
--- OUTSIDE RECORDS SUMMARY | 2024-01-12 01:25 | External Medical Summary | Summary of Care ---
Author Name Unknown Organization [facility] Address [address] [place] [address] Phone [phone] Care Team Providers Care School Curriculum Developer Name Role Phone Jomar Thompson MD Primary Care Provider + Encounter Details Date Type Department Care Team (Late st Contact Info) Description 01/03/2024 Orders Only Fertility [facility] [address] [email or web address] [place] [phone] Yahaira Reed PA-C [address] [facility] [address] Allergies No known active allergiesdocumented as of this encounter (statuses as of 01/03/2024) Medications Medication Sig Dispensed Refills Start Date End Date Status CALCIUM 600 + D 600-200 MG-UNIT PO TABS 1 daily 07/08/2008 Active MAG-OX 400 400 MG PO TABSIndications:Atr ial premature beats one tablet daily 90 3 12/01/2008 Active ASPIRIN 81 MG PO CHEW One pill by mouth once a day with food 07/17/2013 Active MULTIVITAMINS PO CAPS 2 capsules daily 10/30/2013 Active Apple Cider Vinegar Plus Oral Tablet Take by mouth. Acti ve Metoprolol Succinate ER 25 MG [...] by oral route 2 times every day Active Estradiol 0.1 MG/GM Vaginal Cream (Estrace) Apply pea sized amount (0.5 gm) vaginally every other night 42.5 g 3 06/06/2023 Active Gemtesa 75 MG Oral Tablet (Vibegron) Take 1 Tablet by mouth in the morning. 90 Tablet 3 06/06/2023 05/31/2024 Active Sertraline HCl 100 MG Oral Tablet (Zoloft)Indications :Current moderate episode of major depressive disorder without prior episode (HCC) Take 0.5 Tablets by mouth in the morning. 45 Tablet 3 09/07/2023 Active Atorvastatin Calcium 40 MG Oral Tablet (Lipitor) TAKE 1 TABLET IN THE MORNING 90 Tablet 1 09/18/2023 Active Furosemide 20 MG Oral Tablet (Lasix)Indications: Ischemic heart disease Take 1 Tablet by mouth daily as needed (edema). 30 Tablet 11 11/07/2023 Active LORazepam 1 MG Oral Tablet (Ativan)Indications :Anxiety state TAKE 1 TABLET THREE TIMES A DAY NEEDED FOR ANXIETY 30 Tablet 1 11/16/2023 Active documented as of this encounter (statuses as of 01/03/2024) Active Problems Problem Noted Date Diagnosed Date Fatty liver 08/01/2023 Current moderate episode of major depressive disorder without prior episode 08/01/2023 Mild mitral regurgitation 05/10/2022 Diastolic dysfunction 05/10/2022 Incomplete uterovaginal prolapse 11/15/2018 Cystocele, lateral 11/15/2018 Rectocele 11/15/2018 Urge incontinence of urine 11/15/2018 Feeling of incomplete bladder emptying 9 Gastroesophageal reflux disease without esophagi tis 12/08/2015 PVC (premature ventricular contraction) 04/06/20 15 Dyslipidemia, goal LDL below 70 05/25/2014 Ischemic heart disease 05/25/2014 Overview: Echo evidence of RCA territory infarct. Anxiety 02/04/2014 Abnormal echocardiogram 07/18/2013 Insomnia Overview: ICD-10 update of inactive term documented as of this encounter (statuses as of 01/03/2024) Resolved Problems Problem Noted Date Diagnosed Date Resolved Date Advanced directives, counseling/discussion 11/15/2018 08/01/2021 Overview: Scanned 2005 Palpitations 12/29/2013 09/12/2023 Dyslipidemia, goal LDL below 130 07/18/2013 05/25/2014 Abnormal ECG 07/18/2013 01/05/2020 Dyslipidemia, goal LDL below 160 10/11/2010 07/18/2013 Dyslipidemia, goal to be determined 07/13/2009 10/11/2010 Overview: Per Lipid Taxonomy. Dyslipidemia, goal LDL below 160 07/08/2008 07/13/2009 Overview: Per Lipid Taxonomy. Osteoporosis 07/08/2008 01/04/2017 Stress incontinence 02/24/2008 09/12/19 24 Disc disorder of lumbar region 02/24/2008 09/12/2023 documented as of this encounter (statuses as of 01/03/2024) Immunizations Name Administration Dates Next Due COVID-19 mRNA, LNP-s, No Pre serve, 2-Dose Series (Cubicle) 03/31/2021,09/25/2020,09/04/2020 H1N1 2009 Influenza, IM 06/28/2009 Pneumococcal [...] 05/03/2022,05/07/2019 TDAP (age 10 and older)(Boostrix) 12/18/2018 TDAP, Age 7 and older, IM (Adacel) 02/24/2008 Varicella Zoster Vaccine (Adult) 11/16/2011 Zoster [...] Answer Date Recorded PHQ Adult Total Score 0 08/02/2023 Hunger Vital Sign Answer Date Recorded Within the past 12 months, y ou worried that your food would run out before you got the money to buy more. Never true 08/02/19 24 Within the past 12 months, t he food you bought just didn't last and you didn't have money to get more. Never true 08/02/2023 Sex and Gender Information Value Date Recorded Sex Assigned at Female 12/13/2018 8:57 AM EDT Gender Identity Female 12/13/2018 8:57 AM EDT Sexual Orientation Straight 12/13/2018 8: 57 AM EDT Job Start Date Occupation Industry Not on file Not on file Not on file Travel History Travel Start Travel End [place] 11/27/2023 12/04/2023 documented as of this encounter Plan of Treatment Upcoming Encounters Date Type Department Care Team (Late st Contact Info) Description 02/04/2024 8:00 AM EDT Imaging Radiology [facility] [address] [facility] [address] [place] [address] 02/07/2024 9:20 AM EDT Office Visit Urogynecology [facility] [address] [place] [address] Vj Mao MD 132 [facility] [place] [address] 03/28/2024 10:00 AM EDT Office Visit General Internal Medicine [facility] [address] Jomar Thompson MD 200 [facility] [place] [address] Scheduled Procedures Name Priority Associated Diagnoses Date/Ti me COLONOSCOPY FLEXIBLE PROXIMAL DIAGNOSTIC Recall Screen for colon cancer Health Maintenance Due Date Last Done Comments COVID-19 Vaccine (2022- season) 2023 04/27/2023, 03/31/2021, 09/25/2020, Additional history exists DXA Scan 09/04/2026 09/04/2022, 12/2022, 12/18/2018, Additional history exists DTaP,Tdap,and Td Vaccines (3 - Td or Tdap) 12/18/2028 12/18/2018, 02/24/2008 Colonoscopy Discontinued 04/13/2008 Colorectal Cancer Screening Discontinued Pneumococcal Vaccine: 65+ Years Completed 05/22/2016, 12/29/2013 Zoster Vaccines Completed 03/14/2020, 12/28, 11/16/2011 Influenza Vaccine (FLU shot) Completed 04/27/2023, 05/03/2022, 03/22/2021, Additional history exists Cologuard Discontinued Fecal Occult Blood Test Discontinued GARDASIL-HPV IMMUNIZATION SERIES Aged Out No longer eligible based on patient's age to complete this topic Hepatitis B Aged Out No longer eligi ble based on patient's age to complete this topic MENINGOCOCCAL (MENACTRA/MENVEO) Aged Out No longer eligible based on patient's age to complete this topic Sigmoidoscopy Discontinued documented as of this encounter Medical Devices Implanted Type Area Pain Management Physician Device Identifier Shelf Expiration Date Model / Serial / Lot Lens Intraoc 15.5 - [id number] - [id number] Implanted:Qty: 1 on 06/18/2018 by Pratik Zazueta MD at OR [facility] Right: Eye BAUSCH [employer] LOMB 11/26/2021 [id number] / [id number] / [id number] Lens Intraoc 17.0 - [id number] - [id number] Implanted:Qty: 1 on 06/24/2018 by Pratik Zazueta MD at OR [facility] Left: Eye BAUSCH & LOMB 01/26/2023 [id number] / [id number] / [id number] documented as of this encounter Procedures Procedure Name Priority Date/Time Associated Diagnosis Comments CHEMISTRY-OUTSIDE Routine 01/01/2024 documented in this encounter Results * (ABNORMAL) CHEMISTRY-OUTSIDE (01/01/2024) Not all results display below - see scan for full detail OUTSIDE LAB (SEE SCANNED REPORT) Comment:SEE SCAN; CMP, CBCD CREATININE-OUTSID E LAB 0.84 0.6 - 1.2 MG/DL OUTSIDE LAB (SEE SCANNED REPORT) EGFR-OUTSIDE LAB 68.0 ML/MIN-1.7 3M2 OUTSIDE LAB (SEE SCANNED REPORT) POTASSIUM-OUTSIDE LAB 3.9 3.5 - 5.01 MMOL/L OUTSIDE LAB (SEE SCANNED REPORT) GLUCOSE-OUTSIDE LAB 107(H) 70 - 99 MG/DL OUTSIDE LAB (SEE SCANNED REPORT) HOURS FASTING OUTSID E LAB (SEE SCANNED REPORT) TRIGLYCERIDES-OUT SIDE LAB OUTSIDE LAB (SEE SCANNED REPORT) CHOLESTEROL-OUTSI DE LAB OUTSIDE LAB (SEE SCANNED REPORT) HDL-OUTSIDE LAB OUTS JASIEL LAB (SEE SCANNED REPORT) CHOL/HDL RATIO-OUTSIDE LAB OUTSIDE LA B (SEE SCANNED REPORT) LDL (CALCULATED)-OUTS JASIEL LAB OUTSIDE LAB (SEE SCANNED REPORT) LDL (DIRECT MEASURE)-OUTSIDE LAB OUTSIDE LAB (SEE SCANNED REPORT) HEMOGLOBIN, D3P-DSQDACE LAB OUTSIDE LAB (SEE SCANNED REPORT) PHOSPHORUS-OUTSID E LAB OUTSIDE LAB (SEE SCANNED REPORT) PTH-OUTSIDE LAB OUTS JASIEL LAB (SEE SCANNED REPORT) MICROALBUMIN RATIO-OUTSIDE LAB OUTSIDE LA B (SEE SCANNED REPORT) PROTEIN, UA-OUTSIDE LAB OUTSIDE LAB (SEE SCANNED REPORT) HGB 13.9 12.0 - 16.0 G/DL OUTSIDE LAB (SEE SCANNED REPORT) 01/01/2024 Vj Mao MD LABORATORY OUTSIDE LAB (SEE SCANNED REPORT) documented in this encounter Care Teams School Curriculum Developer Relationship Specialty Start Date End Date Jomar Thompson MD [address] [place] [address] PCP - General Internal Medicine 05/27/21 documented as of this encounter
--- OUTSIDE RECORDS SUMMARY | 2024-01-12 01:25 | External Medical Summary | Summary of Care ---
Author Name Unknown Organization [facility] Address [address] [place] [address] Phone [phone] Care Team Providers Care Veterinarian Name Role Phone Jomar Thompson MD Primary Care Provider + Encounter Details Date Type Department Care Team (Late st Contact Info) Description 01/02/2024 Orders Only PATIENT PORTAL DO NOT DELETE THIS DEPT USED BY [place] [id number] Allergies No known active allergiesdocumented as of this encounter (statuses as of 01/02/2024) Medications Medication Sig Dispensed Refills Start Date [...] as of this encounter (statuses as of 01/02/2024) Active Problems Problem Noted Date Diagnosed Date [...] as of this encounter (statuses as of 01/02/2024) Resolved Problems Problem Noted Date Diagnosed Date [...] as of this encounter (statuses as of 01/02/2024) Immunizations Name Administration Dates Next Due COVID-19 mRNA, LNP-s, No Pre serve, 2-Dose Series (VerticalResponse) 03/31/2021,09/25/2020,09/04/2020 H1N1 2009 Influenza, IM 06/28/2009 Pneumococcal [...] Description 02/04/2024 8:00 AM EDT Imaging Radiology [address] 132 [facility] [place] [address] 02/07/2024 9:20 AM EDT Office Visit Urogynecology [facility] 132 [facility] [place] [address] Vj Mao MD 132 [facility] [place] [address] 03/28/2024 10:00 AM EDT Office Visit General Internal Medicine [facility] [place] [address] Jomar Thompson MD 200 [facility] [place] [address] Scheduled Procedures Name Priority Associated Diagnoses Date/Ti me COLONOSCOPY FLEXIBLE PROXIMAL DIAGNOSTIC Recall Screen for colon cancer Health Maintenance Due Date Last Done Comments COVID-19 Vaccine ( season) 2023 04/27/2023, 03/31/2021, 09/25/2020, Additional history [...] this encounter Medical Devices Implanted Type Area Project Management Consultant Device Identifier Shelf Expiration Date Model / Serial / Lot Lens Intraoc 15.5 - [id number] - [id number] Implanted:Qty: 1 on 06/18/2018 by Pratik Zazueta MD at OR [facility] Right: Eye [employer]OMB 11/26/2021 [id number] / [id number] / [id number] Lens Intraoc 17.0 - [id number] - [id number] Implanted:Qty: 1 on 06/24/2018 by Pratik Zazueta MD at [facility] Left: Eye BAUSCH [employer] LOMB 01/26/2023 [id number] / [id number] / [id number] documented as of this encounter Care Teams Veterinarian Relationship Specialty Start Date End Date Jomar Thompson MD [address] [place] [address] PCP - General Internal Medicine 05/27/21 documented as of this encounter
--- OUTSIDE RECORDS SUMMARY | 2024-01-12 01:25 | External Medical Summary | Summary of Care ---
Author Name Unknown Organization [facility] Address [address] [place] [address] Phone [phone] Care Team Providers Care Construction Crew Member Name Role Phone Jomar Thompson MD Primary Care Provider + Encounter Details Date Type Department Care Team (Late st Contact Info) Description 01/02/2024 Orders Only Fertility [facility] [address] [facility] [place] [phone] Yahaira Reed PA-C [address] [facility] [address] Allergies No known active allergiesdocumented as of [...] mRNA, LNP-s, No Pre serve, 2-Dose Series (Riskified) 03/31/2021,09/25/2020,09/04/2020 H1N1 2009 Influenza, IM 06/28/2009 Pneumococcal [...] Description 02/04/2024 8:00 AM EDT Imaging Radiology [facility] [address] [place] [address] 02/07/2024 9:20 AM EDT Office Visit Urogynecology [facility] [address] [place] [address] Vj Mao MD 132 [facility] [place] [address] 03/28/2024 10:00 AM EDT Office Visit General Internal Medicine [facility] [address] Jomar Thompson MD 200 [facility] [place] [address] Scheduled Procedures Name Priority Associated Diagnoses Date/Ti [...] this encounter Medical Devices Implanted Type Area Form Setter Metal Road Forms Device Identifier Shelf Expiration Date Model / Serial / Lot Lens Intraoc 15.5 - [id number] - [id number] Implanted:Qty: 1 on 06/18/2018 by Pratik Zazueta MD at OR [facility] Right: Eye BAUSCH [employer] LOMB 11/26/2021 [id number] / [id number] / [id number] Lens Intraoc 17.0 - [id number] - [id number] Implanted:Qty: 1 on 06/24/2018 by Pratik Zazueta MD at OR [facility] Left: Eye BAUSCH & LOMB 01/26/2023 [id number] / [id number] / [id number] documented as of this encounter Procedures Procedure Name Priority Date/Time Associated Diagnosis Comments CHEMISTRY-OUTSIDE Routine 01/01/2024 documented in this encounter Results * (ABNORMAL) CHEMISTRY-OUTSIDE (01/01/2024) Not all results display below - see scan for full detail SEE SCAN: BMP, CBC, TYPE AND SCREEN OUTSIDE LAB (SEE SCANNED REPORT) CREATININE-OUTSI DE LAB 0.84 0.6 - 1.2 MG/DL OUTSIDE LAB (SEE SCANNED REPORT) EGFR-OUTSIDE LAB 68.0 ML/MIN/1. 73M2 OUTSIDE LAB (SEE SCANNED REPORT) POTASSIUM-OUTSID E LAB 3.9 3.5 - 5.1 MMOL/L OUTSIDE LAB (SEE SCANNED REPORT) GLUCOSE-OUTSIDE LAB 107(H) 70 - 99 MG/DL OUTSIDE LAB (SEE SCANNED REPORT) HOURS FASTING OUTSID E LAB (SEE SCANNED REPORT) TRIGLYCERIDES-OU TSIDE LAB OUTSIDE LAB (SEE SCANNED REPORT) CHOLESTEROL-OUTS JASIEL LAB OUTSIDE LAB (SEE SCANNED REPORT) HDL-OUTSIDE LAB OUTS JASIEL LAB (SEE SCANNED REPORT) CHOL/HDL RATIO-OUTSIDE LAB OUTSIDE LAB (SEE SCANNED REPORT) LDL (CALCULATED)-OUT SIDE LAB OUTSIDE LAB (SEE SCANNED REPORT) LDL (DIRECT MEASURE)-OUTSIDE LAB OUTSIDE LAB (SEE SCANNED REPORT) HEMOGLOBIN, [id number] LAB OUTSIDE LAB (SEE SCANNED REPORT) PHOSPHORUS-OUTSI DE LAB OUTSIDE LAB (SEE SCANNED REPORT) PTH-OUTSIDE LAB OUTS JASIEL LAB (SEE SCANNED REPORT) MICROALBUMIN RATIO-OUTSIDE LAB OUTSIDE LAB (SEE SCANNED REPORT) PROTEIN, UA-OUTSIDE LAB OUTSIDE LAB (SEE SCANNED REPORT) HGB 13.9 12.0 - 16.0 G/DL OUTSIDE LAB (SEE SCANNED REPORT) 01/01/2024 History Per Patient LABORATORY OUTSIDE LAB (SEE SCANNED REPORT) documented in this encounter Care Teams Construction Crew Member Relationship Specialty Start Date End Date Jomar Thompson MD [address] [place] [address] PCP - General Internal Medicine 05/27/21 documented as of this encounter
[2024-01-12 07:28] LABS: Basophils # (auto) 0.01 K/uL (0.00-0.20); Basophils % (auto) 0.1 %; Hematocrit (blood only) 36.1 % (37.0-47.0); Hemoglobin 12.4 g/dl (12.0-16.0); Immature Granulocytes # (auto) 0.06 K/uL (0.01-0.20); Immature Granulocytes % (auto) 0.4 %; Lymphocytes # (auto) 1.73 K/uL (1.20-3.40); Lymphocytes % (auto) 12.5 %; Mean Corpuscular Hemoglobin 30.8 pg (25.0-34.0); Mean Corpuscular Hgb Conc 34.3 g/dL (32.0-36.0); Mean Corpuscular Volume 89.6 fL (80.0-100.0); Mean Platelet Volume 9.9 fL (9.4-12.4); Monocytes # (auto) 1.29 K/uL (0.11-0.59); Monocytes % (auto) 9.3 %; Neutrophils # (auto) 10.79 K/uL (1.40-6.50); Neutrophils % (auto) 77.7 %; Platelet Count 225 K/uL (130-400); RDW Coefficient of Variation 14.4 % (11.5-14.5); RDW Standard Deviation 46.9 fL (36.4-46.3); Red Blood Count 4.03 M/uL (4.20-5.40); White Blood Count 13.88 K/ul (4.8-10.8)
--- NOTE | 2024-01-12 07:29 | Gynecologic Progress Note ---
Date of Service January 12, 2024 Assessment & Plan (1) Uterovaginal prolapse, incomplete: Plan: Robotic hysterectomy, bso, uterosacral colpopexy, colporrhaphy Present on Admission?: Yes (2) TANNER (stress urinary incontinence, female): Plan: sling and cystoscopy Present on Admission?: Yes Plan POD#1 s/p robotic hysterectomy, bso, uterosacral colpopexy, sling, posterior repair, cysto Patient had urinary retention yesterday. Will d/c Roberts and have another voiding trial Anticipate discharge home today, post op instructions reviewed, all questions answered. Follow up appointment as scheduled. Admission and Anticipated Discharge Date Admission Date: January 11, 2024 Anticipated date of discharge: 01/12/24 Subjective Feeling well. No pain, no SOB, no CP, no nausea Review of Systems Review of Systems: All systems reviewed & are unremarkable except as noted in HPI & below Genitourinary: Yesterday, patient did not have much urge to void after her surgery. Then had trouble emptying and found to have elevated post void residual on bladder scan. Physical Exam Constitutional: WD/WN, vitals as above Eyes: PERRL, conjunctivae normal, anicteric sclerae Neck: trachea midline, no thyromegaly Respiratory: normal respiratory effort Cardiovascular: Rate/Rhythm: regular rate and regular rhythm Gastrointestinal (Abdomen): Inspection/Auscultation: abdomen normal to inspection Percussion/Palpation: abdomen soft Incisions intact, clean, dry. Non tender Skin: no rashes, warm and dry Psychiatric: A+Ox3, euthymic affect Results & Data Vital Signs (Past 12 Hours) Vital Signs Temp Pulse Resp BP BP Pulse Ox O2 Del Method 01/12/24 03:12 36.6 C 83 18 134/74 95 Room Air 01/12/24 00:15 Room Air 01/11/24 22:50 36.7 C 77 20 132/71 94 Room Air 01/11/24 20:10 36.6 C 81 18 126/76 92 Room Air 01/11/24 19:40 36.5 C 74 16 132/84 94 Room Air 01/11/24 19:40 Room Air
--- NOTE | 2024-01-12 07:32 | Discharge Summary ---
Date of Service January 12, 2024 Admission HPI Per Admitting Provider Jessi Solis is a 73 year old woman P3 with uterovaginal prolapse and TANNER here for robotic hysterectomy, bso, uterosacral colpopexy, colporrhaphy, sling, and cystoscopy. She complains of feeling a persistent vaginal bulge for several years. She tried a pessary but found it to inconvenient and now prefers to have surgery. She complains of urinary incontinence. On exam she was found to have a Positive cough stress test for stress incontinence. Her urinary urgency and urge incontinence is well controlled with Gemtesa. Admission Exam (Per Admitting) Constitutional WD/WN, vitals as above Eyes PERRL, conjunctivae normal, anicteric sclerae Neck trachea midline, no thyromegaly Respiratory normal respiratory effort Cardiovascular Rate/Rhythm: regular rate and regular rhythm Gastrointestinal (Abdomen) Inspection/Auscultation: abdomen normal to inspection Percussion/Palpation: abdomen soft Skin no rashes, warm and dry Psychiatric A+Ox3, euthymic affect Discharge Data Procedures Performed Operation Date: 01/11/24 07:30 Actual Procedures p Robotic Assisted Total Laparoscopic Hysterectomy, Right Salpingo-Oophorectomy, Right Uterosacral Vaginal Vault Suspension, Mid-Urethral Sling, Posterior [place] orrhaphy, Cystoscopy(Not Applicable) - Vj Mao MD Hospital Course (1) Uterovaginal prolapse, incomplete: Robotic hysterectomy, bso, uterosacral colpopexy, colporrhaphy (2) TANNER (stress urinary incontinence, female): sling and cystoscopy Plan POD#1 s/p robotic hysterectomy, bso, uterosacral colpopexy, sling, posterior repair, cysto Patient had urinary retention yesterday. Will d/c Roberts and have another voiding trial Anticipate discharge home today, post op instructions reviewed, all questions answered. Follow up appointment as scheduled.
[2024-01-12 07:53] LABS: BUN Creatinine Ratio 17.6 (10-20); Calcium 8.9 mg/dl (8.6-10.3); Creatinine Clr Calc Pharmacy 57.6 ml/min; Est GFR (African American) 91.9 ml/min; Est GFR (Non-African American) 79.3 ml/min; Potassium 4.2 mmol/L (3.5-5.1)
[2024-01-12] MEDS: CALCIUM 600MG + VIT D 400 IU TAB PO SCH (08:21)
[2024-01-12] MEDS: PANTOprazole 40 MG TAB PO SCH (08:21)
[2024-01-12] MEDS: MAGNESIUM OXIDE 400 MG TAB PO SCH (08:22)
[2024-01-12] MEDS: ASPIRIN 81 MG ECTAB PO SCH (08:22)
[2024-01-12] MEDS: ATORVASTATIN 40 MG TAB PO SCH (08:22)
[2024-01-12] MEDS: METOPROLOL SUCC 25MG EXT REL TAB PO SCH (08:22)
[2024-01-12] MEDS: SERTRALINE HCL 50 MG TABLET PO SCH (08:22)
[2024-01-12] MEDS: MULTIVITAMIN TAB PO SCH (08:24)
== END 2024-01-12 16:30 | disposition home or self-care (01) ==
LOC: 4E2 05:45 → ASU 05:45